=== PATIENT | female | born 1975 | race Caucasian/White ===

== ENCOUNTER 2022-02-23 13:21 | Emergency (ER) | payer OTHER, SELFPAY ==
[2022-02-23 13:27] VITALS: BP 106/70; PULSE 82; O2SAT 98
[2022-02-23 13:35] VITALS: BMI 22.2
--- NOTE | 2022-02-23 13:42 | ED_ITS ---
HPI - Psych General Chief Complaint: Psychiatric Symptoms Stated Complaint: SI Time Seen by Provider: 02/23/22 13:30 Source: patient and EMS Mode of arrival: EMS Limitations: no limitations History of Present Illness HPI Narrative: 47-year-old female with history of anxiety, depression, fibromyalgia, arthritis, hyperthyroidism presents with complaints of suicidal thoughts. Patient reports yesterday she woke with suicidal thoughts with plan to overdose on her medications. She was seen by [facility] and in the community and she was sent on a Section 12. Patient denies homicidal ideations, hallucinations. She has no physical complaints. She denies substance use Related Data Home Medications Medication Instructions Recorded Confirmed cholecalciferol (vitamin D3) 10 5 tab PO DAILY 02/23/22 02/23/22 mcg (400 unit) tablet (Vitamin D3) clonazepam 0.5 mg tablet 1 tab PO TID PRN Anxiety 02/23/22 02/23/22 levothyroxine 200 mcg tablet 1 tab PO DAILY 02/23/22 02/23/22 lithium carbonate 300 mg capsule 1 cap PO BID 02/23/22 02/23/22 melatonin 3 mg tablet 3 tab PO BEDTIME 02/23/22 02/23/22 mirtazapine 15 mg tablet 1 tab PO BEDTIME 02/23/22 02/23/22 olanzapine 20 mg tablet 1 tab PO BEDTIME 02/23/22 02/23/22 thiamine HCl (vitamin B1) 100 mg 1 tab PO DAILY 02/23/22 02/23/22 tablet tizanidine 4 mg tablet 1 tab PO Q8H PRN muscle spasm 02/23/22 02/23/22 trazodone 100 mg tablet 1 tab PO BEDTIME 02/23/22 02/23/22 Allergies Allergy/AdvReac Type Severity Reaction Status Date / Time Unable to Assess Allergy Verified 02/23/22 13:40 Review of Systems Review of Systems: Yes all other systems are reviewed and are negative Constitutional: Constitutional: Reports no additional constitutional complaints, Denies body ache(s), Denies chills, Denies fever(s), Denies h eadache(s) and Denies weakness Eyes: Eyes: Reports no additional eye complaints and Denies change in vision ENT: Reports system reviewed and no additional complaints, except as documented, Denies dizziness, Denies headache(s), Denies nasal congestion, Denies nasal discharge and Denies neck pain Cardiovascular: Cardiovascular: Reports no additional cardiovascular complaints, Denies chest pain, Denies leg edema and Denies dyspnea Respiratory: Respiratory: Reports no additional respiratory complaints, Denies cough and Denies dyspnea Gastrointestinal: Gastrointestinal: Reports no additional gastrointestinal complaints, Denies abdominal pain, Denies diarrhea, Denies nausea and Denies vomiting Genitourinary: Genitourinary: Reports no additional female genitourinary complaints and Denies urinary incontinence Musculoskeletal: Musculoskeletal: Reports no additional musculoskeletal complaints, Denies back pain, Denies arthralgias, Denies joint swelling, Denies neck pain, Denies numbness and Denies tingling Integumentary/Breasts: Skin/Breast: Reports system reviewed and no additional complaints, except as docu and Denies rash Neurologic: Reports system reviewed and no additional complaints, except as documented, Denies Abnormal speech present, Denies dizziness, Denies headache(s), Denies numbness, Denies tingling and Denies weakness Psychiatric: Psychiatric: Denies anxiety, Denies depression, Denies homicidal ideation and Reports suicidal ideation [facility] Past Medical History Attestation statement: The following information was validated with the patient. Source: old records reviewed and nursing notes reviewed Social History Social History Advance Directives: No Advance Directives Information Provided: No Physical Exam Vital Signs: Vital Signs: Last Vital Signs Temp 98.0 F 02/23/22 15:31 Pulse 83 02/23/22 15:31 Resp 14 02/23/22 15:31 BP 117/55 L 02/23/22 15:31 Pulse Ox 98 02/23/22 15:31 O2 Del Method 02/23/22 15:31 BMI result Body Mass Index 22.2 Const: General: cooperative, healthy appearing, comfortable and no acute distress Orientation/consciousness: patient oriented x3 Limitations: no limitations HEENT: Head: Yes normal to inspection Ears: hearing grossly normal bilaterally General nose exam: Normal external nose present Face and sinus: Yes normal facial exam Mouth: Normal oral and palatal mucosa present Throat: Yes posterior oropharynx normal Eyes: General: appearance normal, both eyes and all related structures Pupils: Equal, round and reactive pupils present Neck: Neck: Yes normal visual inspection Chest: Chest palpation & inspection: normal inspection of the chest Resp: Effort & Inspection: normal respiratory effort Auscultation: clear to auscultation bilaterally Cardio: Rate: regular rate Rhythm: regular rhythm Peripheral pulses: Peripheral pulses 2+ throughout GI: Inspection: Yes normal to inspection Palpation (GI): Soft to palpation and nontender Auscultation: normal bowel sounds Back/Spine/Pelvis: Thoracic/Lumbar Spine: thoracic and lumbar spine normal to inspection Skin: General skin exam: no rashes or lesions noted Neuro: General: patient oriented x3, no focal motor deficits and normal sensation to monofilament Cranial nerves: Yes CN's II-XII intact bilaterally and Yes Equal, round and reactive pupils present Cognition (Neuro): normal cognition Speech: No Abnormal speech present Gait exam (Neuro): Normal gait present Motor exam (neuro): 5/5 motor strength present throughout Extrem: General: Yes normal to inspection, Yes no pedal edema and Yes no calf tenderness Course Course Course Narrative: Labs reviewed and unremarkable. UA shows no acute finding. At this point patient is medically cleared to be seen by crisis Reevaluation(s) Reevaluation #1: 1600-Patient is inpatient bed search on Section 12. Reevaluation #2: 1700-patient placed in physician observation pending disposition. Medications were reconciled Reevaluation #3: 1800-Sign out to Tasne[facility] pending above MDM - Psych MDM Narrative Medical decision making narrative: 47-year-old female coming in with suicidal thoughts with plan to overdose on her pills on a Section 12. No concern for acute ingestion or trauma. No physical complaints. Will check labs, drug screen, COVID screen. Medical Records Attestation: I reviewed the patient's medical records. Lab Data Attestation: I reviewed the patient's lab results. Result diagrams: 02/23/22 14:14 02/23/22 14:14 Labs: Lab Results 02/23/22 02/23/22 02/23/22 Range/Units 14:14 14:14 14:14 WBC 8.1 (4.8-10.8) X10*3/uL RBC 4.03 L (4.20-5.50) X10*6/uL Hgb 10.3 L (12.0-16.0) g/dl Hct 33.2 L (37.0-47.0) % MCV 82.4 (80.0-98.0) fL MCH 25.6 L (27.0-33.0) pg MCHC 31.0 (31.0-35.0) g/dl RDW 15.6 (11.0-16.0) % Plt Count 429 H (160-400) X10*3/uL MPV 8.6 L (9.4-12.3) fL Immature Gran % (Auto) 0.2 (0.0-0.4) % Neut % (Auto) 61.6 (45-73) % Lymph % (Auto) 22.2 (20-40) % [place] % (Auto) 10.8 (2-11) % Eos % (Auto) 4.7 H (0-4) % Baso % (Auto) 0.5 (0-2) % Lymph # (Auto) 1.8 (1.2-4.9) X10*3/uL [place] # (Auto) 0.9 (0.1-1.2) X10*3/uL Eos # (Auto) 0.4 (0.0-0.4) X10*3/uL Baso # (Auto) 0.0 (0.0-0.2) X10*3/uL Abs Immat Gran (auto) 0.02 (0.00-0.03) X10*3/uL Absolute Neuts (auto) 5.0 (2.0-8.3) x10*3/uL Absolute Nucleated RBC 0.000 (0.0-0.012) X10*3/uL Nucleated RBC % (auto) 0.0 (0.0-0.2) /100WBC Sodium 136 (135-145) mmol/L Potassium 3.5 (3.3-5.1) mmol/L Chloride 108 (96-108) mmol/L Carbon Dioxide 21 L (22-29) mmol/L Anion Gap 11 L (12-20) BUN 9 (9-16) mg/dL Creatinine 0.72 (0.5-1.4) mg/dL Estim Creat Clear Calc 64.4 Estimated GFR > 60 Random Glucose 102 (60-115) mg/dL Calcium 9.4 (8.4-10.2) mg/dL Total Bilirubin 0.3 (0.0-1.0) mg/dL Direct Bilirubin 0.2 (0.0-0.5) mg/dL AST 10 (5-31) U/L ALT 6 (0-31) U/L Alkaline Phosphatase 63 (39-117) U/L Total Protein 6.6 (6.5-8.0) g/dL Albumin 4.0 (3.5-5.0) g/dL Salicylates < 5.0 L (15-30) mg/dL Urine Opiates Screen (Not Detect) Urine Fentanyl Screen (Not Detect) Acetaminophen < 1 (<30) mcg/mL Ur Barbiturates Screen (Not Detect) Ur Phencyclidine Scrn (Not Detect) Ur Amphetamines Screen (Not Detect) U Benzodiazepines Scrn (Not Detect) [place] 0.86 (0.60-1.20) mmol/L Urine Cocaine Screen (Not Detect) U Marijuana (THC) Screen (Not Detect) Ethyl Alcohol < 10 mg/dL COVID-19 (DANIEL) (Negative) COVID-19 Clin Com 02/23/22 02/23/22 Range/Units 14:15 14:16 WBC (4.8-10.8) X10*3/uL RBC (4.20-5.50) X10*6/uL Hgb (12.0-16.0) g/dl Hct (37.0-47.0) % MCV (80.0-98.0) fL MCH (27.0-33.0) pg MCHC (31.0-35.0) g/dl RDW (11.0-16.0) % Plt Count (160-400) X10*3/uL MPV (9.4-12.3) fL Immature Gran % (Auto) (0.0-0.4) % Neut % (Auto) (45-73) % Lymph % (Auto) (20-40) % [place] % (Auto) (2-11) % Eos % (Auto) (0-4) % Baso % (Auto) (0-2) % Lymph # (Auto) (1.2-4.9) X10*3/uL [place] # (Auto) (0.1-1.2) X10*3/uL Eos # (Auto) (0.0-0.4) X10*3/uL Baso # (Auto) (0.0-0.2) X10*3/uL Abs Immat Gran (auto) (0.00-0.03) X10*3/uL Absolute Neuts (auto) (2.0-8.3) x10*3/uL Absolute Nucleated RBC (0.0-0.012) X10*3/uL Nucleated RBC % (auto) (0.0-0.2) /100WBC Sodium (135-145) mmol/L Potassium (3.3-5.1) mmol/L Chloride (96-108) mmol/L Carbon Dioxide (22-29) mmol/L Anion Gap (12-20) BUN (9-16) mg/dL Creatinine (0.5-1.4) mg/dL Estim Creat Clear Calc Estimated GFR Random Glucose (60-115) mg/dL Calcium (8.4-10.2) mg/dL Total Bilirubin (0.0-1.0) mg/dL Direct Bilirubin (0.0-0.5) mg/dL AST (5-31) U/L ALT (0-31) U/L Alkaline Phosphatase (39-117) U/L Total Protein (6.5-8.0) g/dL Albumin (3.5-5.0) g/dL Salicylates (15-30) mg/dL Urine Opiates Screen Not Detected (Not Detect) Urine Fentanyl Screen Not Detected (Not Detect) Acetaminophen (<30) mcg/mL Ur Barbiturates Screen Not Detected (Not Detect) Ur Phencyclidine Scrn Not Detected (Not Detect) Ur Amphetamines Screen Not Detected (Not Detect) U Benzodiazepines Scrn Not Detected (Not Detect) [place] (0.60-1.20) mmol/L Urine Cocaine Screen Not Detected (Not Detect) U Marijuana (THC) Screen POSITIVE H (Not Detect) Ethyl Alcohol mg/dL COVID-19 (DANIEL) Negative (Negative) COVID-19 Clin Com See Note Discharge Plan Discharge Clinical Impression: Suicidal ideation Patient Disposition: Still a Patient Prescriptions: No Action tizanidine 4 mg tablet 1 tab PO Q8H PRN (Reason: muscle spasm) clonazepam 0.5 mg tablet 1 tab PO TID PRN (Reason: Anxiety) thiamine HCl (vitamin B1) 100 mg tablet 1 tab PO DAILY melatonin 3 mg tablet 3 tab PO BEDTIME trazodone 100 mg tablet 1 tab PO BEDTIME lithium carbonate 300 mg capsule 1 cap PO BID levothyroxine 200 mcg tablet 1 tab PO DAILY mirtazapine 15 mg tablet 1 tab PO BEDTIME cholecalciferol (vitamin D3) [Vitamin D3] 10 mcg (400 unit) tablet 5 tab PO DAILY olanzapine 20 mg tablet 1 tab PO BEDTIME
[2022-02-23 14:22] LABS: MANUAL DIFF FLAG NO
[2022-02-23 14:24] LABS: Basophils Percent Auto 0.5 % (0-2); Eosinophils Absolute Auto 0.4 X10*3/uL (0.0-0.4); Eosinophils Percent Auto 4.7 % (0-4); Hematocrit 33.2 % (37.0-47.0); Hemoglobin 10.3 g/dl (12.0-16.0); Imm Gran Abs Auto 0.02 X10*3/uL (0.00-0.03); Imm Gran Pct Auto 0.2 % (0.0-0.4); Lymphocytes Absolute Auto 1.8 X10*3/uL (1.2-4.9); Lymphocytes Percent Auto 22.2 % (20-40); Mean Corpuscular Hemoglobin 25.6 pg (27.0-33.0); Mean Corpuscular Volume 82.4 fL (80.0-98.0); Mean Platelet Volume 8.6 fL (9.4-12.3); Monocytes Absolute Auto 0.9 X10*3/uL (0.1-1.2); Monocytes Percent Auto 10.8 % (2-11); Neutrophils Percent Auto 61.6 % (45-73); Platelet Count 429 X10*3/uL (160-400); Red Blood Count 4.03 X10*6/uL (4.20-5.50); Red Cell Distribution Width 15.6 % (11.0-16.0); White Blood Count 8.1 X10*3/uL (4.8-10.8)
[2022-02-23 14:32] LABS: Lithium 0.86 mmol/L (0.60-1.20)
[2022-02-23 14:40] LABS: Amphetamine Screen Urine Not Detected (Not Detect); Barbiturates, Urine Not Detected (Not Detect); Benzodiazepines Screen Urine Not Detected (Not Detect); Cannabinoid Screen Urine POSITIVE (Not Detect); Cocaine Screen Urine Not Detected (Not Detect); Fentanyl, urine Not Detected (Not Detect); Opiate Screen Urine Not Detected (Not Detect); Phencyclidine Screen Urine Not Detected (Not Detect)
[2022-02-23 14:42] LABS: Acetaminophen LAB < 1 mcg/mL (<30); Alanine Aminotransferase 6 U/L (0-31); Alkaline Phosphatase 63 U/L (39-117); Anion Gap 11 (12-20); Aspartate Amino Transferase 10 U/L (5-31); Bilirubin Direct 0.2 mg/dL (0.0-0.5); Bilirubin Total 0.3 mg/dL (0.0-1.0); Blood Urea Nitrogen 9 mg/dL (9-16); Calcium 9.4 mg/dL (8.4-10.2); Carbon Dioxide 21 mmol/L (22-29); Chloride 108 mmol/L (96-108); Creatinine Clr Calc Pharmacy 64.4; Estimated Glomerular Filt Rate > 60; Ethanol < 10 mg/dL; Glucose Random 102 mg/dL (60-115); Potassium 3.5 mmol/L (3.3-5.1); Salicylate < 5.0 mg/dL (15-30); Sodium 136 mmol/L (135-145); Total Protein 6.6 g/dL (6.5-8.0)
[2022-02-23 14:49] LABS: COVID-19 Test Negative (Negative); IDNOW Serial# 16C4AD1C
--- NOTE | 2022-02-23 14:53 | PHA.MEDREC ---
Pharmacy Consult ? Medication Reconciliation Pharmacy has completed the medication reconciliation. Patient reported all medications. Patient reports only taking Clonazaepam this AM. Haylie Sepulveda, PharmD
[2022-02-23 15:31] VITALS: BP 117/55; PULSE 83; RESP 14; TEMP 36.7; O2SAT 98
--- NOTE | 2022-02-23 15:52 | MHC.CARE ---
Per ZAMZAM Bolden pt is an active bedsearch for inpt psychiatric admission
[2022-02-23] MEDS: clonazePAM 0.5 MG TABLET PO (16:34)
[2022-02-23] MEDS: Melatonin 3 MG TABLET 9 MG PO (20:52)
[2022-02-23] MEDS: Lithium Carbonate 300 MG CAPSULE PO (20:52)
[2022-02-23] MEDS: OLANZapine 10 MG TABLET 20 MG PO (20:52)
[2022-02-23] MEDS: Mirtazapine 15 MG TABLET PO (20:53)
[2022-02-23] MEDS: traZODone HCL 100 MG TABLET PO (20:53)
[2022-02-24] MEDS: clonazePAM 0.5 MG TABLET PO ×2 (02:18→14:00)
[2022-02-24 10:15] VITALS: BP 109/67; PULSE 80; RESP 16; O2SAT 96
[2022-02-24] MEDS: Lithium Carbonate 300 MG CAPSULE PO (11:50)
[2022-02-24] MEDS: Cholecalciferol (Vitamin D3) 25 MCG TABLET 50 MCG PO (11:50)
[2022-02-24] MEDS: Levothyroxine Sodium 200 MCG TABLET PO (11:50)
[2022-02-24] MEDS: Thiamine HCL 100 MG TABLET PO (11:51)
--- NOTE | 2022-02-24 13:58 | PC.NURSE ---
slept most of the morning, skin wpd, sitter at bedside, alert, speech clear, ate both breakfast and lunch
--- NOTE | 2022-02-24 14:52 | PC.NURSE ---
Pt seen this date for individual OT tx session. Pt presents with flat depressed mood and reports continued depression and anxiety. Pt provided with coloring pages and sensory items with good effect.
--- NOTE | 2022-02-24 14:56 | PC.NURSE ---
This RN received report from BETO Cortes. Pt is stable, sec 12, SI w/ plan. on 1:1 bedsearch. N to check in with pt tomorrow AM
--- NOTE | 2022-02-24 19:03 | PC.NURSE ---
Pt sec 12, but has been appropriate and calm. Pt has 9pm meds. Report to BETO Costello at this time. BHN to re-eval pt tomorrow AM pending BS vs Respit
--- NOTE | 2022-02-24 20:49 | PC.NURSE ---
I assumed care of this patient at 1900. At that time the pt was resting in the [facility], 1:1 observation continuing. Discharged at this time into care of boyfriend en route to respite.
== END 2022-02-24 21:09 | disposition home or self-care (01) ==
PROVIDERS: Nurse Practitioner Family; Emergency Provider Emergency Medicine; PCP Internal Medicine
DX: F33.1 Major depressive disorder, recurrent, moderate (principal); R45.851 Suicidal ideations; M79.10 Myalgia, unspecified site; Z20.822 Contact with and (suspected) exposure to COVID-19; Z79.899 Other long term (current) drug therapy
CPT/HCPCS: 80048; 80076; 80143; 80178; 80179; 80307; 82077; 85025; 87635; 99283; 99284

== ENCOUNTER 2023-03-22 10:29 | Inpatient (IN) | payer OTHER, SELFPAY ==
--- NOTE | 2023-03-22 | ECG_ITS ---
Test Reason : REPEAT DUE TO HYPOKALEMIA Blood Pressure : / mmHG Vent. Rate : 060 BPM Atrial Rate : 060 BPM P-R Int : 204 ms QRS Dur : 092 ms QT Int : 456 ms P-R-T Axes : 022 065 035 degrees QTc Int : 456 ms Normal sinus rhythm Nonspecific T wave abnormality Abnormal ECG When compared with ECG of 22-MAR-2023 19:44, Nonspecific T wave abnormality has replaced inverted T waves in Anterior leads QT has shortened Referred By: Rochelle Dick Electronically Signed By:STEVE HENDRICKS
--- NOTE | 2023-03-22 11:05 | ED.PSYCH ---
HPI - Psych General Chief Complaint: Psychiatric Symptoms Stated Complaint: crisis Time Seen by Provider: 03/22/23 10:49 Source: patient, family and old records reviewed Mode of arrival: ambulatory Limitations: no limitations History of Present Illness HPI Narrative: 48 yo female with hx of anxiety, depression, mood disorder here with a week of SI but no plan and admits to not taking her medications correctly but then notes she ran out of her trazodone on Thursday or had refills but has not gotten her meds filled - she cannot really tell me why. She notes a red rash on under her breasts. She has no SI now, denies AH/VH. States she is very anxious and is not sleeping MD complaint: suicidal ideation and feels depressed Onset (ago): day(s) (4) Duration: getting worse History of same: Yes Relieving factors: none Exacerbating factors: other Context: not taking psychiatric medications Associated psychiatric symptoms: depression, suicidal ideation and racing thoughts Associated symptoms: other (rash under breasts) Treatments prior to arrival: none If self harm: admits thoughts of self harm Related Data Home Medications Medication Instructions Recorded Confirmed clonazepam 0.5 mg tablet 1 tab PO TID PRN Anxiety 02/23/22 03/22/23 levothyroxine 200 mcg tablet 1 tab PO DAILY 02/23/22 03/22/23 lithium carbonate 300 mg capsule 1 cap PO BID 02/23/22 03/22/23 melatonin 3 mg tablet 3 tab PO BEDTIME 02/23/22 03/22/23 thiamine HCl (vitamin B1) 100 mg 1 tab PO DAILY 02/23/22 03/22/23 tablet trazodone 100 mg tablet 150 tab PO BEDTIME 02/23/22 03/22/23 levothyroxine 25 mcg tablet 25 mcg PO DAILY 03/22/23 03/22/23 lurasidone 20 mg tablet 20 mg PO QAM 03/22/23 03/22/23 Allergies Allergy/AdvReac Type Severity Reaction Status Date / Time Unable to Assess Allergy Verified 02/23/22 13:40 Review of Systems Review of Systems: Constitutional : No Fever, No Chills Cardiovascular : No Chest Pain, No SOB Respiratory : No Cough, No Sputum, No Dyspnea Gastrointestinal : No Nausea, No Vomiting, No Diarrhea, No Hematochezia, No Melena Genitourinary : No Dysuria, No Urinary Frequency, No Hematuria Musculoskeletal : No Myalgias Skin : No Skin Lesions, No rash Neuro : No Weakness, No Numbness, No Paresthesias, No Dizziness, No Headache Psych : positive Anxiety, positive Depression, no SI no HI All other systems reviewed and are negative [facility] Past Medical History Attestation statement: The following information was validated with the patient. Medical History Anxiety Depression Hypothyroidism Social History Social History (Updated 03/22/23 @ 11:13 by Rochelle Dick DO) Patient Tobacco Use Status: Never used Tobacco Use of substances other than those prescribed or required for medical reasons: No Advance Directives: No Advance Directives Information Provided: No Healthcare Proxy: No Guardian: No Physical Exam Vital Signs: Vital Signs: Last Vital Signs Temp 97.3 F 03/22/23 11:06 Pulse 85 03/22/23 13:30 Resp 18 03/22/23 13:30 BP 112/87 03/22/23 13:30 Pulse Ox 98 03/22/23 13:30 O2 Del Method Room Air 03/22/23 13:30 BMI result Body Mass Index 28.3 Appearance: Alert. Oriented X3. Mild acute distress. Crying, anxious Eyes: Pupils equal, round and reactive to light. ENT: Pharynx normal. Neck: Normal inspection. Neck supple. CVS: Normal heart rate and rhythm. Pulses normal. Chest : with aYra RN present - beefy red rash noted under breasts consistent with yeast no signs of cellulitis Respiratory: No respiratory distress. Breath sounds normal. Abdomen: Soft and nontender. Skin: Skin warm and dry. Normal skin color. Normal skin turgor. Extremities: No lower extremity edema. Neuro: Oriented X 3. No motor deficit. No sensory deficit. CN2-12 intact Course Course Course Narrative: K is low will give oral and IV - CBC shows hemoconcentration IVF ordered once that is done will be medically cleared. Reevaluation(s) Reevaluation #1: TSH very high - not taking her thyroid medications but no bradycardia and no edema or other signs of myxedema coma Reevaluation #2: no known CAD - T4 is not terrible will start her at 112mcg daily and can be reassessed. Reevaluation #3: UA contaminated Additional Reevaluation(s): Physician observation started at 320pm Patient placed in physician observation because the patient needed more time for inpatient bed search and repletion of K. At the time observation was started the patient's vitals were stable, patient is alert and oriented but slightly anxious, Neuro: nonfocal, CV RRR, Lungs clear Medications Administered Discontinued Medications Generic Name Dose Route Start Last Admin Trade Name Carol PRN Reason Stop Dose Admin Clonazepam 1 mg 03/22/23 11:02 03/22/23 11:16 Clonazepam 1 Mg Tablet PO 03/22/23 11:03 1 mg ONCE ONE Administration Potassium Chloride 10 meq in 100 mls @ 100 mls/hr 03/22/23 12:30 03/22/23 14:55 Potassium Chloride/H20 IV 03/22/23 14:29 100 mls/hr Q1H CHALO Administration Sodium Chloride 1,000 mls @ 999 mls/hr 03/22/23 12:30 03/22/23 13:44 Ns IV 03/22/23 13:30 999 mls/hr .Q1H1M CHALO Administration Levothyroxine Sodium 112 mcg 03/22/23 13:02 03/22/23 13:43 Levothyroxine Sodium 112 Mcg Tablet PO 03/22/23 13:03 112 mcg ONCE ONE Administration Nystatin 1 appl 03/22/23 11:10 03/22/23 13:44 Nystatin Powder 15 Gm Bottle TOPICAL 03/22/23 11:11 Not Given ONCE ONE Protocol Olanzapine 5 mg 03/22/23 11:04 03/22/23 11:16 Olanzapine 5 Mg Tablet PO 03/22/23 11:05 5 mg ONCE ONE Administration Potassium Chloride 40 meq 03/22/23 12:07 03/22/23 13:42 Potassium Chloride Packet 20 Meq Packet PO 03/22/23 12:08 40 meq ONCE ONE Administration Medical Decision Making Medical Decision Making MDM Narrative: 48 yo female with hx of anxiety, depression, mood disorder who has not been on her medications and not taking them right since Thursday/ who presents with insomnia, thoughts of SI, anxiety and not feeling well. She states she is very anxious and asking for her medications. She notes she hasn't been taking her medications but also she states she couldn't fill them though she has refills - it was a little hard to follow. She has no SI now but states she is not safe. She denies AH/VH. She will need labs and PO medications. The patient also c/o red rash under breasts - I could not examine her in common area will apply nystatin and ask for private area to examine her. Differential Diagnosis Differential Diagnoses: The differential diagnosis associated with the presentation includes non compliance, anxiety, med withdrawal, SI Admission/Observation Consideration of admission/observation: Escalation of care including admission/observation considered Lab Data MDM Lab Attestation statement: I reviewed the patient's lab results. TSH up would need 110 of levothyroxine once T4 back no clinical signs of myxedema coma 03/22/23 11:34 03/22/23 11:34 Labs: Lab Results 03/22/23 03/22/23 03/22/23 Range/Units 11:13 11:34 11:34 WBC 15.2 H (4.8-10.8) X10*3/uL RBC 5.49 D (4.20-5.50) X10*6/uL Hgb 15.1 D (12.0-16.0) g/dl Hct 45.3 D (37.0-47.0) % MCV 82.5 (80.0-98.0) fL MCH 27.5 (27.0-33.0) pg MCHC 33.3 (31.0-35.0) g/dl RDW 17.0 H (11.0-16.0) % Plt Count 463 H (160-400) X10*3/uL MPV 8.5 L (9.4-12.3) fL Immature Gran % (Auto) 0.3 (0.0-0.4) % Neut % (Auto) 70.1 (45-73) % Lymph % (Auto) 19.9 L (20-40) % Eddy % (Auto) 9.0 (2-11) % Eos % (Auto) 0.5 (0-4) % Baso % (Auto) 0.2 (0-2) % Lymph # (Auto) 3.0 (1.2-4.9) X10*3/uL Eddy # (Auto) 1.4 H (0.1-1.2) X10*3/uL Eos # (Auto) 0.1 (0.0-0.4) X10*3/uL Baso # (Auto) 0.0 (0.0-0.2) X10*3/uL Abs Immat Gran (auto) 0.04 H (0.00-0.03) X10*3/uL Absolute Neuts (auto) 10.7 H (2.0-8.3) x10*3/uL Absolute Nucleated RBC 0.000 (0.0-0.012) X10*3/uL Nucleated RBC % (auto) 0.0 (0.0-0.2) /100WBC Sodium 135 (135-145) mmol/L Potassium 2.8 L (3.3-5.1) mmol/L Chloride 100 (96-108) mmol/L Carbon Dioxide 21 L (22-29) mmol/L Anion Gap 17 (12-20) BUN 8 L (9-16) mg/dL Creatinine 0.97 (0.5-1.4) mg/dL Estim Creat Clear Calc 66.2 Estimated GFR > 60 Random Glucose 128 H (60-115) mg/dL Calcium 10.7 H D (8.4-10.2) mg/dL Magnesium 2.2 (1.6-2.6) mg/dL Total Bilirubin 0.9 (0.0-1.0) mg/dL Direct Bilirubin 0.3 (0.0-0.5) mg/dL AST 58 H (5-31) U/L ALT 28 (0-31) U/L Alkaline Phosphatase 113 (39-117) U/L Total Protein 8.5 H (6.5-8.0) g/dL Albumin 5.2 H (3.5-5.0) g/dL TSH (0.32-4.0) uIU/mL Free T4 (0.71-1.85) ng/dL Urine Color Urine Appearance Urine pH (5.0-9.0) Ur Specific [place] (1.005-1.025) Urine Protein (Neg-Trace) mg/dL Urine Glucose (UA) (Negative) mg/dL Urine Ketones (Negative) mg/dL Urine Blood (Negative) Urine Nitrite (Negative) Ur Leukocyte Esterase (Negative) Urine RBC (0-2) /HPF Urine WBC (0-5) /HPF Ur Squamous Epith Cells (0-2) /HPF Urine Bacteria (None Seen) Hyaline Casts (0-2) /LPF Salicylates (15-30) mg/dL Urine Opiates Screen Not Detected (Not Detect) Acetaminophen (<30) mcg/mL Ur Barbiturates Screen Not Detected (Not Detect) Ur Phencyclidine Scrn Not Detected (Not Detect) Ur Amphetamines Screen Not Detected (Not Detect) U Benzodiazepines Scrn Not Detected (Not Detect) Storden (0.60-1.20) mmol/L Urine Cocaine Screen Not Detected (Not Detect) U Marijuana (THC) Screen POSITIVE H (Not Detect) Ethyl Alcohol < 10 mg/dL 03/22/23 03/22/23 03/22/23 Range/Units 11:34 11:34 11:34 WBC (4.8-10.8) X10*3/uL RBC (4.20-5.50) X10*6/uL Hgb (12.0-16.0) g/dl Hct (37.0-47.0) % MCV (80.0-98.0) fL MCH (27.0-33.0) pg MCHC (31.0-35.0) g/dl RDW (11.0-16.0) % Plt Count (160-400) X10*3/uL MPV (9.4-12.3) fL Immature Gran % (Auto) (0.0-0.4) % Neut % (Auto) (45-73) % Lymph % (Auto) (20-40) % Eddy % (Auto) (2-11) % Eos % (Auto) (0-4) % Baso % (Auto) (0-2) % Lymph # (Auto) (1.2-4.9) X10*3/uL Eddy # (Auto) (0.1-1.2) X10*3/uL Eos # (Auto) (0.0-0.4) X10*3/uL Baso # (Auto) (0.0-0.2) X10*3/uL Abs Immat Gran (auto) (0.00-0.03) X10*3/uL Absolute Neuts (auto) (2.0-8.3) x10*3/uL Absolute Nucleated RBC (0.0-0.012) X10*3/uL Nucleated RBC % (auto) (0.0-0.2) /100WBC Sodium (135-145) mmol/L Potassium (3.3-5.1) mmol/L Chloride (96-108) mmol/L Carbon Dioxide (22-29) mmol/L Anion Gap (12-20) BUN (9-16) mg/dL Creatinine (0.5-1.4) mg/dL Estim Creat Clear Calc Estimated GFR Random Glucose (60-115) mg/dL Calcium (8.4-10.2) mg/dL Magnesium (1.6-2.6) mg/dL Total Bilirubin (0.0-1.0) mg/dL Direct Bilirubin (0.0-0.5) mg/dL AST (5-31) U/L ALT (0-31) U/L Alkaline Phosphatase (39-117) U/L Total Protein (6.5-8.0) g/dL Albumin (3.5-5.0) g/dL TSH 82.23 H (0.32-4.0) uIU/mL Free T4 0.47 L (0.71-1.85) ng/dL Urine Color Urine Appearance Urine pH (5.0-9.0) Ur Specific [place] (1.005-1.025) Urine Protein (Neg-Trace) mg/dL Urine Glucose (UA) (Negative) mg/dL Urine Ketones (Negative) mg/dL Urine Blood (Negative) Urine Nitrite (Negative) Ur Leukocyte Esterase (Negative) Urine RBC (0-2) /HPF Urine WBC (0-5) /HPF Ur Squamous Epith Cells (0-2) /HPF Urine Bacteria (None Seen) Hyaline Casts (0-2) /LPF Salicylates < 5.0 L (15-30) mg/dL Urine Opiates Screen (Not Detect) Acetaminophen < 17 (<30) mcg/mL Ur Barbiturates Screen (Not Detect) Ur Phencyclidine Scrn (Not Detect) Ur Amphetamines Screen (Not Detect) U Benzodiazepines Scrn (Not Detect) Storden < 0.10 L (0.60-1.20) mmol/L Urine Cocaine Screen (Not Detect) U Marijuana (THC) Screen (Not Detect) Ethyl Alcohol mg/dL 03/22/23 Range/Units 11:50 WBC (4.8-10.8) X10*3/uL RBC (4.20-5.50) X10*6/uL Hgb (12.0-16.0) g/dl Hct (37.0-47.0) % MCV (80.0-98.0) fL MCH (27.0-33.0) pg MCHC (31.0-35.0) g/dl RDW (11.0-16.0) % Plt Count (160-400) X10*3/uL MPV (9.4-12.3) fL Immature Gran % (Auto) (0.0-0.4) % Neut % (Auto) (45-73) % Lymph % (Auto) (20-40) % Eddy % (Auto) (2-11) % Eos % (Auto) (0-4) % Baso % (Auto) (0-2) % Lymph # (Auto) (1.2-4.9) X10*3/uL Eddy # (Auto) (0.1-1.2) X10*3/uL Eos # (Auto) (0.0-0.4) X10*3/uL Baso # (Auto) (0.0-0.2) X10*3/uL Abs Immat Gran (auto) (0.00-0.03) X10*3/uL Absolute Neuts (auto) (2.0-8.3) x10*3/uL Absolute Nucleated RBC (0.0-0.012) X10*3/uL Nucleated RBC % (auto) (0.0-0.2) /100WBC Sodium (135-145) mmol/L Potassium (3.3-5.1) mmol/L Chloride (96-108) mmol/L Carbon Dioxide (22-29) mmol/L Anion Gap (12-20) BUN (9-16) mg/dL Creatinine (0.5-1.4) mg/dL Estim Creat Clear Calc Estimated GFR Random Glucose (60-115) mg/dL Calcium (8.4-10.2) mg/dL Magnesium (1.6-2.6) mg/dL Total Bilirubin (0.0-1.0) mg/dL Direct Bilirubin (0.0-0.5) mg/dL AST (5-31) U/L ALT (0-31) U/L Alkaline Phosphatase (39-117) U/L Total Protein (6.5-8.0) g/dL Albumin (3.5-5.0) g/dL TSH (0.32-4.0) uIU/mL Free T4 (0.71-1.85) ng/dL Urine Color Yellow Urine Appearance Hazy Urine pH 6.5 (5.0-9.0) Ur Specific [place] 1.010 (1.005-1.025) Urine Protein 100 (2+) H (Neg-Trace) mg/dL Urine Glucose (UA) Negative (Negative) mg/dL Urine Ketones 15 (Negative) mg/dL Urine Blood Moderate (2+) H (Negative) Urine Nitrite Negative (Negative) Ur Leukocyte Esterase Small (1+) H (Negative) Urine RBC 0-2 (0-2) /HPF Urine WBC 11-20 H (0-5) /HPF Ur Squamous Epith Cells 11-20 (0-2) /HPF Urine Bacteria 2+ (None Seen) Hyaline Casts 3-5 (0-2) /LPF Salicylates (15-30) mg/dL Urine Opiates Screen (Not Detect) Acetaminophen (<30) mcg/mL Ur Barbiturates Screen (Not Detect) Ur Phencyclidine Scrn (Not Detect) Ur Amphetamines Screen (Not Detect) U Benzodiazepines Scrn (Not Detect) St[place] (0.60-1.20) mmol/L Urine Cocaine Screen (Not Detect) U Marijuana (THC) Screen (Not Detect) Ethyl Alcohol mg/dL Independent Interpretation I performed an independent interpretation of an: EKG Interpretation: Rate: 80 Rhythm: NSR [place]: normal Normal P waves. Normal LACHELLE. Normal QRS complex. ST T wave : no MERI, nonspecific ST T wave changes consistent with low K qTC: prolonged 465 prior studies: no acute ischemia The study has been interpreted contemporaneously by me. . Independent Historian Clinical information obtained from an independent historian. History obtained from or confirmed by: Friend External Record Review External record reviewed: Inpatient record Procedures EJ/Peripheral Line Arm L: Time Out Performed: Yes Skin Cleansed in Sterile Fashion: Yes Size (gauge): 20 IV Secured and Dressing Applied: Yes Patient Tolerated Procedure: well and no complications Critical Care Time Critical Care Time Critical Care Time: Yes Total Critical Care Time: 35 Attestation: IV potassium, IVF, reassessments. I attest to this time spent taking care of the patient Discharge Plan Discharge Clinical Impression: Yeast dermatitis, Acute hypokalemia, Suicidal ideation, Elevated TSH Patient Disposition: Still a Patient Prescriptions: No Action clonazepam 0.5 mg tablet 1 tab PO TID PRN (Reason: Anxiety) thiamine HCl (vitamin B1) 100 mg tablet 1 tab PO DAILY melatonin 3 mg tablet 3 tab PO BEDTIME trazodone 100 mg tablet 150 tab PO BEDTIME lithium carbonate 300 mg capsule 1 cap PO BID levothyroxine 200 mcg tablet 1 tab PO DAILY levothyroxine 25 mcg tablet 25 mcg PO DAILY lurasidone 20 mg tablet 20 mg PO QAM
[2023-03-22 11:06] VITALS: BP 130/91; PULSE 83; RESP 18; TEMP 36.3; O2SAT 98; BMI 28.3
[2023-03-22] MEDS: OLANZapine 5 MG TABLET PO ×2 (11:16→20:53)
[2023-03-22] MEDS: clonazePAM 1 MG TABLET PO (11:16)
[2023-03-22 11:38] LABS: Amphetamine Screen Urine Not Detected (Not Detect); Barbiturates, Urine Not Detected (Not Detect); Benzodiazepines Screen Urine Not Detected (Not Detect); Cannabinoid Screen Urine POSITIVE (Not Detect); Cocaine Screen Urine Not Detected (Not Detect); Opiate Screen Urine Not Detected (Not Detect); Phencyclidine Screen Urine Not Detected (Not Detect)
[2023-03-22 11:41] LABS: MANUAL DIFF FLAG NO
[2023-03-22 11:42] LABS: Basophils Percent Auto 0.2 % (0-2); Eosinophils Absolute Auto 0.1 X10*3/uL (0.0-0.4); Eosinophils Percent Auto 0.5 % (0-4); Hematocrit 45.3 % (37.0-47.0); Hemoglobin 15.1 g/dl (12.0-16.0); Imm Gran Abs Auto 0.04 X10*3/uL (0.00-0.03); Imm Gran Pct Auto 0.3 % (0.0-0.4); Lymphocytes Percent Auto 19.9 % (20-40); Mean Corpuscular HGB Conc 33.3 g/dl (31.0-35.0); Mean Corpuscular Hemoglobin 27.5 pg (27.0-33.0); Mean Corpuscular Volume 82.5 fL (80.0-98.0); Mean Platelet Volume 8.5 fL (9.4-12.3); Monocytes Absolute Auto 1.4 X10*3/uL (0.1-1.2); Neutrophils Absolute Auto 10.7 x10*3/uL (2.0-8.3); Neutrophils Percent Auto 70.1 % (45-73); Platelet Count 463 X10*3/uL (160-400); Red Blood Count 5.49 X10*6/uL (4.20-5.50); White Blood Count 15.2 X10*3/uL (4.8-10.8)
[2023-03-22 11:55] LABS: Lithium < 0.10 mmol/L (0.60-1.20)
[2023-03-22 12:03] LABS: Acetaminophen LAB < 17 mcg/mL (<30); Alanine Aminotransferase 28 U/L (0-31); Albumin Level 5.2 g/dL (3.5-5.0); Alkaline Phosphatase 113 U/L (39-117); Anion Gap 17 (12-20); Aspartate Amino Transferase 58 U/L (5-31); Bilirubin Direct 0.3 mg/dL (0.0-0.5); Bilirubin Total 0.9 mg/dL (0.0-1.0); Blood Urea Nitrogen 8 mg/dL (9-16); Calcium 10.7 mg/dL (8.4-10.2); Carbon Dioxide 21 mmol/L (22-29); Chloride 100 mmol/L (96-108); Creatinine Clr Calc Pharmacy 66.2; Estimated Glomerular Filt Rate > 60; Ethanol < 10 mg/dL; Glucose Random 128 mg/dL (60-115); Magnesium 2.2 mg/dL (1.6-2.6); Potassium 2.8 mmol/L (3.3-5.1); Salicylate < 5.0 mg/dL (15-30); Sodium 135 mmol/L (135-145); Total Protein 8.5 g/dL (6.5-8.0)
--- NOTE | 2023-03-22 12:17 | ECG_ITS ---
Test Reason : hypokalemia Blood Pressure : / mmHG Vent. Rate : 080 BPM Atrial Rate : 080 BPM P-R Int : 192 ms QRS Dur : 098 ms QT Int : 404 ms P-R-T Axes : 045 077 -70 degrees QTc Int : 465 ms Normal sinus rhythm ST & T wave abnormality, consider inferolateral ischemia Prolonged QT Abnormal ECG No previous ECGs available Referred By: Rochelle Dick Electronically Signed By:STEVE HENDRICKS
[2023-03-22 12:22] LABS: TSH reflex Free T4 82.23 uIU/mL (0.32-4.0)
[2023-03-22 12:59] LABS: Free T4 (Free Thyroxine) 0.47 ng/dL (0.71-1.85)
[2023-03-22 13:30] VITALS: BP 112/87; PULSE 85; RESP 18; O2SAT 98
[2023-03-22] MEDS: Potassium Chloride Packet 20 MEQ PACKET 40 MEQ PO (13:42)
[2023-03-22] MEDS: Potassium Chloride/H20 10 MEQ/100 ML PIGGYBACK 100 MEQ IV ×2 (13:42→14:55)
[2023-03-22] MEDS: Levothyroxine Sodium 112 MCG TABLET PO (13:43)
[2023-03-22] MEDS: 0.9 % Sodium Chloride 1,000 ML 999 ML IV (13:44)
[2023-03-22 14:13] LABS: Appearance Urine Hazy; Color Urine Yellow; Glucose Urine UA Negative (Negative); Leukocyte Esterase Urine Small (1+) (Negative); Nitrite Urine Negative (Negative); PH 6.5 (5.0-9.0); UMIC TRIGGER UACC YES; Urine Blood Moderate (2+) (Negative); Urine Ketones 15 mg/dL (Negative); Urine Protein 100 (2+) mg/dL (Neg-Trace)
[2023-03-22 14:30] LABS: Bacteria Urine 2+ (None Seen); RBC Urine 0-2 /HPF (0-2); UACC Culture Trigger YES
--- NOTE | 2023-03-22 15:24 | PC.NURSE ---
patient resting in bed, family at bedside. patient has IV in the L foream placed via ultrasound. patient has been calm and cooperative.
[2023-03-22 17:37] LABS: COVID-19 Test Negative (Negative); IDNOW Serial# 08D9AD1C
--- NOTE | 2023-03-22 19:17 | ECG_ITS ---
Test Reason : HYPOKALEMIA Blood Pressure : / mmHG Vent. Rate : 077 BPM Atrial Rate : 077 BPM P-R Int : 198 ms QRS Dur : 100 ms QT Int : 530 ms P-R-T Axes : 080 083 073 degrees QTc Int : 599 ms Normal sinus rhythm ST & T wave abnormality, consider anterior ischemia Abnormal ECG When compared with ECG of 22-MAR-2023 12:27, T wave inversion less evident in Inferior leads Inverted T waves have replaced nonspecific T wave abnormality in Anterior leads QT has lengthened Referred By: Oscar Limon Electronically Signed By:STEVE HENDRICKS
[2023-03-22 19:50] LABS: Anion Gap 15 (12-20); Blood Urea Nitrogen 8 mg/dL (9-16); Calcium 9.8 mg/dL (8.4-10.2); Carbon Dioxide 22 mmol/L (22-29); Chloride 108 mmol/L (96-108); Creatinine Clr Calc Pharmacy 72.2; Estimated Glomerular Filt Rate > 60; Glucose Random 120 mg/dL (60-115); Potassium 2.7 mmol/L (3.3-5.1); Sodium 142 mmol/L (135-145)
--- NOTE | 2023-03-22 20:21 | PC.NURSE ---
RN received a call from [facility] nurse regarding pt's repeat Potassium level which came back 0.1 less than the original despite having Potassium replaced (20meq IV and 40meq PO). RN to discuss these findings with MD Moy as the floor appears to be ready to receive her but is unsure of she requires additional Potassium at this time. Pt has been assisted to bathroom to remove old EMS and EKG stickers from chest/breast area. She was also provided with supplies to clear her underbreast area as it was reported (not yet visualized by RN) that she has what appears to be a bad yeast like rash/area to her bilateral underbreast. RN to consult pharmacy regarding Nystatin powder that was ordered earlier but not provided.
[2023-03-22] MEDS: Melatonin 3 MG TABLET 9 MG PO (20:53)
[2023-03-22] MEDS: clonazePAM 0.5 MG TABLET PO (20:53)
[2023-03-22] MEDS: Potassium Bicarbonate/Cit AC 25 MEQ TABLET.EFF 50 MEQ PO (20:55)
--- NOTE | 2023-03-22 21:14 | PC.NURSE ---
Pt medicated per MD order with 50meq PO potassium d/t repeat Potassium coming in at 2.7. RN placed order for repeat Chemistry (per MD order) within 1 hour of completion of medication consumption. Pt medicated wtih all 2100 medications per order, inquired about Trazadone 300mg that she takes and RN able to confirm she has a 7 day supply of this prescribed 03/19. RN to speak with MD Moy regarding getting this updated/added to her med rec/list.
[2023-03-22] MEDS: Lithium Carbonate 300 MG CAPSULE PO (21:21)
[2023-03-22 22:35] VITALS: BP 146/77; PULSE 77; RESP 20; TEMP 37; O2SAT 97
[2023-03-22] MEDS: Nystatin Powder 15 GM BOTTLE 1 APPL TOPICAL (23:03)
--- NOTE | 2023-03-22 23:20 | PC.NURSE ---
Report received from BETO Bridges. Pt up, back and forth to bathroom, urinating. This RN spoke with patient about UTI symptoms, pt denies burning or pain with urination. This RN educated patient signs and symptoms of UTI and encouraged patient to let this RN know if she is experiencing those symptoms. Pt now resting comfortably on bed, offers no concerns or questions at this time. Continue plan of care for waiting for potassium to come back and possible admit to [facility]
[2023-03-22 23:35] LABS: Alanine Aminotransferase 24 U/L (0-31); Albumin Level 4.3 g/dL (3.5-5.0); Alkaline Phosphatase 92 U/L (39-117); Anion Gap 13 (12-20); Aspartate Amino Transferase 42 U/L (5-31); Bilirubin Total 0.7 mg/dL (0.0-1.0); Blood Urea Nitrogen 9 mg/dL (9-16); Calcium 9.8 mg/dL (8.4-10.2); Carbon Dioxide 25 mmol/L (22-29); Chloride 105 mmol/L (96-108); Creatinine Clr Calc Pharmacy 67.6; Estimated Glomerular Filt Rate > 60; Glucose Random 108 mg/dL (60-115); Potassium 3.5 mmol/L (3.3-5.1); Sodium 139 mmol/L (135-145); Total Protein 7.1 g/dL (6.5-8.0)
--- NOTE | 2023-03-22 23:59 | PC.NURSE ---
Pt potassium resulted back, this RN called [facility] to see if they would still be taking her this evening. Per [facility] staff, inpatient physician requesting repeat EKG. EKG order placed and is being completed at this time.
--- NOTE | 2023-03-23 | ECG_ITS ---
Test Reason : Qtc Blood Pressure : / mmHG Vent. Rate : 070 BPM Atrial Rate : 070 BPM P-R Int : 202 ms QRS Dur : 098 ms QT Int : 422 ms P-R-T Axes : 065 081 039 degrees QTc Int : 455 ms Normal sinus rhythm ST & T wave abnormality, consider inferior ischemia Abnormal ECG When compared with ECG of 23-MAR-2023 00:26, Nonspecific T wave abnormality now evident in Lateral leads Referred By: Segun Chairez Electronically Signed By:STEVE HENDRICKS
[2023-03-23] MEDS: traZODone HCL 100 MG TABLET 300 MG PO ×2 (00:31→20:07)
--- NOTE | 2023-03-23 00:38 | PC.NURSE ---
nurse to nurse given to BETO Kingsley on [facility]. Pt will be going up shortly. Pt aware of plan and remains calm and cooperative, verbalizes agreement with plan
[2023-03-23 04:11] VITALS: BP 122/67; PULSE 86; RESP 18; TEMP 36.7; O2SAT 92
[2023-03-23] MEDS: hydrOXYzine HCL 25 MG TABLET PO (04:38)
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
[2023-03-23] MEDS: Lurasidone HCl 20 MG TABLET PO (09:17)
[2023-03-23] MEDS: Lithium Carbonate 300 MG CAPSULE PO (09:17)
[2023-03-23] MEDS: Levothyroxine Sodium 112 MCG TABLET PO (09:17)
[2023-03-23] MEDS: clonazePAM 0.5 MG TABLET PO ×3 (09:29→20:13)
[2023-03-23 09:35] VITALS: BP 120/77; PULSE 72; RESP 18; TEMP 36.6
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
--- NOTE | 2023-03-23 14:16 | P.CONHOSP_ITS ---
History of Present Illness Data of Consult Service Date: 03/23/23 Requesting physician: Segun Chairez Primary Care Provider: Unknown Physician HPI Reason for consult: hypothyroidism 48-year-old female with history of mood disorder and hypothyroidism admitted to Psychiatry consult placed hospitalist service for management of hypothyroidism. On admission, TSH 82.23, free T4 0.47. Patient is prescribed 225 mcg daily outpatient however today she tells me that she has not taken this medication in over a month. She states she has never been compliant with the medication. She is symptomatic with dry skin, slight hair loss, weight gain, and depression though she states this more situational. She denies any constipation. Review of Systems Review of Systems: Yes all other systems are reviewed and are negative [facility] Medical History (Updated 03/23/23 @ 14:27 by FELICITA Calix) Anxiety Depression Hypothyroidism Social History Household Members: Significant Other and Children Housing: Unknown / Unable to assess Do you presently have visiting nurse or other home services: No Patient Tobacco Use Status: Never used Tobacco Use of substances other than those prescribed or required for medical reasons: Yes Substance Use Type: Marijuana Substance Use Frequency: Daily Last Used Substance: Hours (ago) Currently Displaying Signs/Symptoms of Drug Intoxication Withdrawal: No Any prior treatment program specific to substance use: No Have you been hit, kicked, punched, or otherwise hurt by someone within the past year? If so, by whom?: No Do you feel safe in your current relationship?: Yes Is there a partner from a previous relationship who is making you feel unsafe now?: No Are you made to feel afraid or neglected: No Spiritual Healthcare Practices: none Yarsani Healthcare Practices: none Cultural Healthcare Practices: none Advance Directives: No Advance Directives Information Provided: No Healthcare Proxy: No Guardian: No Do you have thoughts of harming others: None Do you have a plan to hurt others: No Plan Recently lost weight without trying: No Nutrition Risks: No Nutritional Risk Patient : No : No Poor oral hygiene: No Meds Allergies Allergy/AdvReac Type Severity Reaction Status Date / Time methotrexate Allergy Rash Verified 03/22/23 20:54 warfarin [From Coumadin] Allergy Rash Verified 03/22/23 20:54 Active Medications: Current Medications Acetaminophen (Acetaminophen 325 Mg Tablet) 650 mg PO Q6H PRN PRN Reason: Headache/Pain Mild Scale (1-3) Al Hydroxide/Mg Hydroxide (Magnesium Hydrox/Alum Hydrox 30 Ml Oral.Susp) 30 ml PO Q6H PRN PRN Reason: Heartburn/Nausea Clonazepam (Clonazepam 0.5 Mg Tablet) 0.5 mg PO TID PRN PRN Reason: Anxiety Last Admin: 03/23/23 09:29 Dose: 0.5 mg Hydroxyzine HCl (Hydroxyzine Hcl 25 Mg Tablet) 25 mg PO Q6H PRN PRN Reason: Anxiety Last Admin: 03/23/23 04:38 Dose: 25 mg Levothyroxine Sodium (Levothyroxine Sodium 112 Mcg Tablet) 112 mcg PO DAILY [facility] Last Admin: 03/23/23 09:17 Dose: 112 mcg Levothyroxine Sodium (Levothyroxine Sodium 25 Mcg Tablet) 25 mcg PO DAILY@0600 CHALO Levothyroxine Sodium (Levothyroxine Sodium 200 Mcg Tablet) 200 mcg PO DAILY@0600 [facility] Amery Carbonate (Amery Carbonate 300 Mg Capsule) 300 mg PO BID [facility] Last Admin: 03/23/23 09:17 Dose: 300 mg Lurasidone HCl (Lurasidone Hcl 20 Mg Tablet) 20 mg PO DAILY [facility] Last Admin: 03/23/23 09:17 Dose: 20 mg Magnesium Hydroxide (Milk Of Magnesia 30 Ml Oral.Susp) 30 ml PO DAILY PRN PRN Reason: Constipation Melatonin (Melatonin 3 Mg Tablet) 9 mg PO BEDTIME [facility] Last Admin: 03/22/23 20:53 Dose: 9 mg Nystatin (Nystatin Powder 15 Gm Bottle) 1 appl TOPICAL TID [facility]; Protocol Thiamine HCl (Thiamine Hcl 100 Mg Tablet) 100 mg PO DAILY [facility] Last Admin: 03/23/23 10:02 Dose: Not Given Trazodone HCl (Trazodone Hcl 100 Mg Tablet) 100 mg PO BEDTIME MRX1 PRN PRN Reason: Insomnia Home Medications Medication Instructions Recorded Confirmed Last Taken Type clonazepam 0.5 mg tablet 1 tab PO TID PRN Anxiety 02/23/22 03/22/23 02/23/22 History levothyroxine 200 mcg tablet 1 tab PO DAILY 02/23/22 03/22/23 Unknown History lithium carbonate 300 mg capsule 1 cap PO BID 02/23/22 03/22/23 Unknown History melatonin 3 mg tablet 3 tab PO BEDTIME 02/23/22 03/22/23 Unknown History thiamine HCl (vitamin B1) 100 mg 1 tab PO DAILY 02/23/22 03/22/23 Unknown History tablet levothyroxine 25 mcg tablet 25 mcg PO DAILY 03/22/23 03/22/23 Unknown History lurasidone 20 mg tablet 20 mg PO QAM 03/22/23 03/22/23 Unknown History trazodone 150 mg tablet 300 mg PO BEDTIME 03/22/23 03/22/23 Unknown History Physical Exam Vital Signs and Narrative: Vital Signs: Last Vital Signs Temp 97.9 F 03/23/23 09:35 Pulse 72 03/23/23 09:35 Resp 18 03/23/23 09:35 BP 120/77 03/23/23 09:35 Pulse Ox 92 03/23/23 04:11 O2 Del Method Room Air 03/23/23 04:11 BMI result Body Mass Index 28.3 Constitutional - Awake and Alert, No apparent distress Eyes - PERRLA, EOMI Neck - supple, trachea midline. Thryoid normal in size and symmetric without palpable nodule Cardiovascular - S1S2, RRR, No edema Respiratory - Normal lung expansion, Normal respiratory effort, No respiratory distress, CTA bilaterally Skin - Warm/Dry Neurological - Alert & oriented x3 Psychological - Appropriate affect, depressed mood Results Labs 03/22/23 11:34 03/22/23 23:13 Labs: Laboratory Results - last 24 hr 03/22/23 03/22/23 03/22/23 11:50 17:19 19:29 Anion Gap 15 Estim Creat Clear Calc 72.2 Estimated GFR > 60 Random Glucose 120 H Calcium 9.8 D Total Bilirubin AST ALT Alkaline Phosphatase Total Protein Albumin Urine Color Yellow Urine Appearance Hazy Urine pH 6.5 Ur Specific [place] 1.010 Urine Protein 100 (2+) H Urine Glucose (UA) Negative Urine Ketones 15 Urine Blood Moderate (2+) H Urine Nitrite Negative Ur Leukocyte Esterase Small (1+) H Urine RBC 0-2 Urine WBC 11-20 H Ur Squamous Epith Cells 11-20 Urine Bacteria 2+ Hyaline Casts 3-5 COVID-19 (DANIEL) Negative COVID-19 Clin Com See Note 03/22/23 23:13 Anion Gap 13 Estim Creat Clear Calc 67.6 Estimated GFR > 60 Random Glucose 108 Calcium 9.8 Total Bilirubin 0.7 AST 42 H ALT 24 Alkaline Phosphatase 92 Total Protein 7.1 Albumin 4.3 Urine Color Urine Appearance Urine pH Ur Specific [place] Urine Protein Urine Glucose (UA) Urine Ketones Urine Blood Urine Nitrite Ur Leukocyte Esterase Urine RBC Urine WBC Ur Squamous Epith Cells Urine Bacteria Hyaline Casts COVID-19 (DANIEL) COVID-19 Clin Com Assessment and Plan (1) Hypothyroidism: Status: Acute Plan 48-year-old female with history of mood disorder and hypothyroidism admitted to Psychiatry consult placed hospitalist service for management of hypothyroidism. #Hypothyroidism -patient has a long history of noncompliance with her levothyroxine and has not taken this medication in over a month accounting for her elevated TSH and slightly depressed free T4. She is mildly symptomatic. Per the patient's weight, levothyroxine dose should be 112mcg daily. I suspect her dose was increased because she continued to appear hypothyroid due to her noncompliance and medication dose was subsequently increased. I would not recommend restarting this medication at 225 mcg as this is too high of a dose given her history and weight. Recommend continuing 112 mcg daily levothyroxine. Recheck TSH and free T4 in 4-6 weeks, would not recheck sooner or make any further medication adjustments until this time. Thank you for allowing me to participate in this consult. Signing off at this time. Please do not hesitate to call for further questions. Time Spent With Patient Time: Total time managing care of this patient today ____ minutes.
--- NOTE | 2023-03-23 14:24 | PC.NURSE ---
Pt signed a 3 day notice up on , 03/26. MD GATO, SW aware.
[2023-03-23] MEDS: Nystatin Powder 15 GM BOTTLE 1 APPL TOPICAL ×2 (16:49→20:07)
[2023-03-23 17:52] VITALS: BP 124/78; PULSE 78; RESP 18; TEMP 36.6
[2023-03-23] MEDS: Melatonin 3 MG TABLET 9 MG PO (20:07)
[2023-03-23] MEDS: Lithium Carbonate ER 300 MG TABLET.ER 600 MG PO (20:07)
[2023-03-24] MEDS: hydrOXYzine HCL 25 MG TABLET PO ×2 (01:21→14:24)
[2023-03-24] MEDS: cloNIDine HCL 0.1 MG TABLET PO (01:21)
[2023-03-24 07:39] LABS: Fentanyl, urine Not Detected (Not Detect)
[2023-03-24] MEDS: Lurasidone HCl 20 MG TABLET PO (08:54)
[2023-03-24] MEDS: Levothyroxine Sodium 112 MCG TABLET PO (08:54)
[2023-03-24] MEDS: clonazePAM 0.5 MG TABLET PO ×3 (08:54→20:18)
[2023-03-24 08:58] VITALS: BP 105/53; PULSE 74; RESP 16; TEMP 36.6; O2SAT 95
[2023-03-24 08:58] LABS: Alanine Aminotransferase 16 U/L (0-31); Albumin Level 3.9 g/dL (3.5-5.0); Alkaline Phosphatase 74 U/L (39-117); Anion Gap 11 (12-20); Aspartate Amino Transferase 21 U/L (5-31); Bilirubin Direct 0.2 mg/dL (0.0-0.5); Bilirubin Total 0.4 mg/dL (0.0-1.0); Blood Urea Nitrogen 11 mg/dL (9-16); Calcium 9.6 mg/dL (8.4-10.2); Carbon Dioxide 22 mmol/L (22-29); Chloride 109 mmol/L (96-108); Cholesterol 186 mg/dL (<200); Creatinine Clr Calc Pharmacy 72.9; Estimated Glomerular Filt Rate > 60; Glucose Fasting 101 mg/dL (60-99); HDL Cholesterol 51 mg/dL (>40); LDL Cholesterol Calculated 113 mg/dL (<100); Magnesium 2.1 mg/dL (1.6-2.6); Potassium 2.8 mmol/L (3.3-5.1); Sodium 139 mmol/L (135-145); Total Protein 6.3 g/dL (6.5-8.0); Triglycerides 110 mg/dL (<150)
[2023-03-24 09:01] LABS: Estimated Average Glucose 108 mg/dL; Hemoglobin A1c % 5.4 % (<6.0)
[2023-03-24] MEDS: Nystatin Powder 15 GM BOTTLE 1 APPL TOPICAL ×2 (09:06→15:19)
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
[2023-03-24 09:32] LABS: Folate 3.8 ng/mL (> or = 4.0); Vitamin B12 < 148 pg/mL (200-900)
[2023-03-24] MEDS: Potassium Chloride Packet 20 MEQ PACKET 40 MEQ PO (09:35)
[2023-03-24 16:59] VITALS: BP 124/70; PULSE 75; RESP 16; TEMP 36.1; O2SAT 97
[2023-03-24] MEDS: Melatonin 3 MG TABLET 9 MG PO (20:13)
[2023-03-24] MEDS: Lithium Carbonate ER 300 MG TABLET.ER 600 MG PO (20:13)
[2023-03-24] MEDS: traZODone HCL 100 MG TABLET 300 MG PO (20:13)
[2023-03-25] MEDS: Levothyroxine Sodium 112 MCG TABLET PO (09:47)
[2023-03-25] MEDS: Lurasidone HCl 20 MG TABLET PO (09:47)
[2023-03-25] MEDS: Nystatin Powder 15 GM BOTTLE 1 APPL TOPICAL ×3 (10:07→20:37)
[2023-03-25 10:08] VITALS: BP 119/67; PULSE 91; RESP 16; TEMP 36.3; O2SAT 98
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
[2023-03-25] MEDS: clonazePAM 0.5 MG TABLET PO ×2 (11:45→20:29)
[2023-03-25 13:16] LABS: Anion Gap 10 (12-20); Blood Urea Nitrogen 8 mg/dL (9-16); Calcium 9.1 mg/dL (8.4-10.2); Carbon Dioxide 21 mmol/L (22-29); Chloride 110 mmol/L (96-108); Estimated Glomerular Filt Rate > 60; Glucose Random 89 mg/dL (60-115); Potassium 3.3 mmol/L (3.3-5.1); Sodium 138 mmol/L (135-145)
[2023-03-25] MEDS: hydrOXYzine HCL 25 MG TABLET PO (15:50)
[2023-03-25 20:20] VITALS: BP 120/79; PULSE 93; TEMP 36.3
[2023-03-25] MEDS: Melatonin 3 MG TABLET 9 MG PO (20:24)
[2023-03-25] MEDS: cloNIDine HCL 0.1 MG TABLET PO (20:25)
[2023-03-25] MEDS: traZODone HCL 100 MG TABLET 300 MG PO (20:25)
[2023-03-25] MEDS: Lithium Carbonate ER 300 MG TABLET.ER 600 MG PO (20:27)
[2023-03-25] MEDS: Magnesium Hydrox/Alum Hydrox 30 ML ORAL.SUSP PO (20:39)
[2023-03-26 08:00] VITALS: BP 104/51; PULSE 78; RESP 18; TEMP 36.4; O2SAT 94
[2023-03-26] MEDS: clonazePAM 0.5 MG TABLET PO (09:21)
[2023-03-26] MEDS: Levothyroxine Sodium 112 MCG TABLET PO (09:22)
[2023-03-26] MEDS: Nystatin Powder 15 GM BOTTLE 1 APPL TOPICAL (09:22)
[2023-03-26] MEDS: Lurasidone HCl 20 MG TABLET PO (09:22)
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
== END 2023-03-26 13:55 | disposition home or self-care (01) | DRG 753 ==
LOC: HO.ED 17:57 → HO.PM5 03-23 00:57
PROVIDERS: Internal Medicine; Admitting Provider Clinical Nurse Specialist Psychiatric/Mental Health; Emergency Provider Emergency Medicine; Visit Provider Psychiatry & Neurology Psychiatry
DX: F31.9 Bipolar disorder, unspecified (principal); R45.851 Suicidal ideations; Z91.148 Patient's other noncompliance with medication regimen for other reason; F43.10 Post-traumatic stress disorder, unspecified; E03.9 Hypothyroidism, unspecified; Z20.822 Contact with and (suspected) exposure to COVID-19; Z79.890 Hormone replacement therapy; Z79.899 Other long term (current) drug therapy
CPT/HCPCS: 36415; 80048; 80053; 80061; 80076; 80143; 80178; 80179; 80307; 81001; 82607; 82746; 83036; 83735; 84439; 84443; 85025; 87086; 87635; 93005; 99285; J1040; S9485

== ENCOUNTER → 2023-03-23 00:34 | Outpatient (BNV) | payer OTHER, SELFPAY | PROVIDERS: Admitting Provider Clinical Nurse Specialist Psychiatric/Mental Health; Emergency Provider Emergency Medicine; Visit Provider Physician Assistant | DX: E03.9 Hypothyroidism, unspecified (principal) | CPT/HCPCS: 99222 ==

== ENCOUNTER → 2023-03-23 00:34 | Outpatient (BNV) | payer OTHER, SELFPAY | PROVIDERS: Admitting Provider Clinical Nurse Specialist Psychiatric/Mental Health; Emergency Provider Emergency Medicine; Visit Provider Psychiatry & Neurology Psychiatry | DX: F31.63 Bipolar disorder, current episode mixed, severe, without psychotic features (principal); F43.11 Post-traumatic stress disorder, acute; E03.9 Hypothyroidism, unspecified; R79.89 Other specified abnormal findings of blood chemistry | CPT/HCPCS: 90792; 99231; 99232; 99238 ==

== ENCOUNTER 2023-04-10 19:20 | Inpatient (IN) | payer OTHER, SELFPAY ==
--- NOTE | ~2023-04-10 | CT_ITS ---
EXAMINATION: CT HEAD WITHOUT CONTRAST CLINICAL INFORMATION: History of fall and head strike COMPARISON: None available. TECHNIQUE: Contiguous axial imaging was performed from the skull base to vertex without intravenous administration of contrast. This CT examination was performed using dose optimization techniques as appropriate, variously including the following: *Automated exposure control *Adjustment of mA and/or kV according to patient size (this includes techniques or standardized protocols for targeted exams where dose is matched to indication/reason for exam; i.e. extremities or head) *Use of iterative reconstruction technique DLP: 732 mGy-cm FINDINGS: The brain parenchyma has normal attenuation. The hathaway-white matter differentiation is well preserved. No evidence of an acute major vascular territory infarction. No intracranial hemorrhage, extra-axial fluid collection, focal mass effect or midline shift. The ventricles have normal size and configuration; no hydrocephalus. The brainstem and cerebellum have a normal appearance. The cerebellar tonsils are in normal position. The calvarium is intact. The visualized paranasal sinuses, mastoid air cells and middle ear cavities are well aerated. The orbits and globes are unremarkable. The temporomandibular joints are normal. CT/CT head/brain wo IV con IMPRESSION: No evidence of calvarial fracture, intracranial hemorrhage or other acute intracranial pathology.
--- NOTE | ~2023-04-10 | CT_ITS ---
EXAMINATION: CT HEAD WITHOUT CONTRAST CLINICAL INFORMATION: Postconcussion. Increased vomiting. COMPARISON: CT head from 04/14/2023. TECHNIQUE: Contiguous axial imaging was performed from the skull base to vertex without intravenous administration of contrast. This CT examination was performed using dose optimization techniques as appropriate, variously including the following: *Automated exposure control. *Adjustment of mA and/or kV according to patient size (this includes techniques or standardized protocols for targeted exams where dose is matched to indication/reason for exam; i.e. extremities or head). *Use of iterative reconstruction technique. DLP: 552 mGy-cm FINDINGS: There is no evidence of acute intracranial hemorrhage or edematous territorial infarction. [place]-white matter differentiation is preserved. There is no abnormal attenuation within the brain parenchyma. Proportional prominence of the ventricles and sulcal spaces without evidence of obstructive hydrocephalus. No abnormal mass effect or midline shift. No extra-axial fluid collections. No acute soft tissue or osseous abnormalities. The mastoid air cells and visualized paranasal sinuses are clear. Mild degenerative arthropathy of the temporomandibular joints. CT/CT head/brain wo IV con IMPRESSION: No evidence of acute intracranial hemorrhage or edematous territorial infarction.
--- NOTE | ~2023-04-10 | CT_ITS ---
EXAMINATION: CT ABDOMEN AND PELVIS WITHOUT CONTRAST CLINICAL INFORMATION: Vomiting and nausea. COMPARISON: None available. TECHNIQUE: Multidetector volumetric imaging was performed from the superior aspect of the liver through the pubic symphysis. Sagittal and coronal reformatted images were obtained on the technologist's workstation. This CT examination was performed using dose optimization techniques as appropriate, variously including the following: *Automated exposure control *Adjustment of mA and/or kV according to patient size (this includes techniques or standardized protocols for targeted exams where dose is matched to indication/reason for exam; i.e. extremities or head) *Use of iterative reconstruction technique DLP: 500 mGy-cm FINDINGS: LUNG BASES: There is minimal scarring at the left lung base. LIVER, GALLBLADDER, AND BILIARY TREE: The liver is normal in size, shape, and attenuation. No focal hepatic lesion or biliary ductal dilatation is present. There has been a prior cholecystectomy. PANCREAS: Unremarkable. SPLEEN: Unremarkable. ADRENAL GLANDS: Unremarkable. KIDNEYS AND URETERS: The kidneys are normal in size and position. There are scattered bilateral nonobstructing renal calculi measuring up to 3.5 mm mid pole right kidney. There is a 1.7 cm cyst upper pole right kidney. There is no hydronephrosis. BLADDER: Decompressed. GASTROINTESTINAL TRACT: There is submucosal fatty infiltration of the colon. The appendix is visualized and is within normal limits. ABDOMINAL WALL: No significant hernia is appreciated. LYMPH NODES: Normal. VASCULAR: Unremarkable. PELVIC VISCERA: There is a partially calcified uterine fibroid measuring up to 2.2 cm. The adnexal regions are unremarkable. OSSEOUS STRUCTURES: There is mild bilateral hip degenerative change. There is also mild lumbar degenerative change with curvature to the right. CT/CT abdomen pelvis wo IV con IMPRESSION: Nonobstructing bilateral renal calculi. Fibroid uterus. No acute intra-abdominal process identified. Fleischner guidelines were followed.
[2023-04-10 19:38] VITALS: BP 123/85; PULSE 74; RESP 18; TEMP 36.9; O2SAT 97; BMI 28.3
--- NOTE | 2023-04-10 19:42 | ED.GENADULT ---
HPI - General Adult General Chief complaint: Psychiatric Symptoms Stated complaint: crisis Time Seen by Provider: 04/10/23 20:48 Source: patient Mode of arrival: ambulatory Limitations: no limitations History of Present Illness HPI narrative: Patient comes to the emergency room complaining of suicidal ideation. Patient does not disclose any plan. Patient crying, states ?I want to commit suicide?. Patient denies trying to injure herself prior to arrival. Of note, patient was discharged less than a month ago, on March 26 from Psychiatry, patient was treated for bipolar disorder, PTSD. Related Data Home Medications Medication Instructions Recorded Confirmed clonazepam 0.5 mg tablet 0.5 mg PO TID PRN Anxiety 04/10/23 04/10/23 clonidine HCl 0.1 mg tablet 0.1 mg PO TID 04/10/23 04/10/23 levothyroxine 112 mcg tablet 112 mcg PO DAILY 04/10/23 04/10/23 lithium carbonate 300 mg 300 mg PO BID 04/10/23 04/10/23 tablet,extended release lurasidone 20 mg tablet 20 mg PO QAM 04/10/23 04/10/23 melatonin 5 mg tablet 5 mg PO BEDTIME 04/10/23 04/10/23 trazodone 150 mg tablet 150 - 300 mg PO BEDTIME PRN 04/10/23 04/10/23 Insomnia Allergies Allergy/AdvReac Type Severity Reaction Status Date / Time methotrexate Allergy Rash Verified 03/22/23 20:54 warfarin [From Coumadin] Allergy Rash Verified 03/22/23 20:54 Review of Systems Review of Systems: Constitutional : No Weight loss, No Fever, No Chills, No Night Sweats, No Fatigue, No Malaise ENT/Mouth : No Hearing loss, No Ear Pain, No Nasal Congestion, No Sinus Pain, No Hoarseness, No sore throat, No Rhinorrhea, No Swallowing Difficulty Eyes: No Eye Pain, No Swelling, No Redness, No Foreign Body, No Discharge, No Vision Changes Cardiovascular : No Chest Pain, No SOB, No Dyspnea on Exertion, No Orthopnea, No Edema, No Palpitations Respiratory : No Cough, No Sputum, No Wheezing, No Smoke Exposure, No Dyspnea Gastrointestinal : No Nausea, No Vomiting, No Diarrhea, No Constipation, No abdominal Pain, No Hematochezia, No Melena Genitourinary : no irregular bleeding, No Dysuria, No Urinary Frequency, No Hematuria, No Urinary Incontinence, No Urgency, No Flank Pain, No Urinary Flow Changes, No Hesitancy Musculoskeletal : No joint pain, No Myalgias, No Joint Swelling Skin : No Skin Lesions, No rash Neuro : No Weakness, No Numbness, No Paresthesias, No Loss of Consciousness, No Dizziness, No Headache Psych : Complaining of anxiety, depression, SI Heme/Lymph: No Bruising, No Bleeding,No Lymphadenopathy Endocrine : No Polyuria, No Polydipsia, No Temperature Intolerance [facility] Past Medical History Medical History PTSD (post-traumatic stress disorder) Anxiety Hypothyroidism Depression Social History Social History Household Members: Significant Other and Children Housing: Unknown / Unable to assess Do you presently have visiting nurse or other home services: No Patient Tobacco Use Status: Never used Tobacco Substance Use Type: Marijuana Advance Directives: No Advance Directives Information Provided: No Healthcare Proxy: No Guardian: No service: No Sexual orientation: Straight/Heterosexual Physical Exam ED Vital Signs: Vital Signs - 24 hr 04/12/23 09:07 04/12/23 14:41 04/12/23 18:48 Temperature 98.7 F Pulse Rate 84 60 87 Respiratory Rate 16 Blood Pressure 124/58 L 96/55 L 129/60 Pulse Oximetry 92 Oxygen Delivery Method Room Air 04/12/23 20:09 04/13/23 02:01 Temperature 97.9 F 97.9 F Pulse Rate 64 79 Respiratory Rate 16 18 Blood Pressure 113/59 L 115/74 Pulse Oximetry 100 97 Oxygen Delivery Method Room Air Room Air BMI result Body Mass Index 28.3 [facility] Other: Appearance: Alert. Oriented X3. No acute distress. Eyes: Pupils equal, round and reactive to light. ENT: Pharynx normal. Neck: Normal inspection. Neck supple. No lymph nodes noted. No crepitus CVS: Normal heart rate and rhythm. Pulses normal. Normal S1 and S2 Respiratory: No respiratory distress. Breath sounds normal. No Wheezing. No rales Abdomen: Soft and nontender. No rigidity. No distention. Skin: Skin warm and dry. Normal skin color. Normal skin turgor. Extremities: No lower extremity edema. No Lacerations. No Rash Neuro: Oriented X 3. No motor deficit. No sensory deficit. Moving all extremities. No slurred speech. CN 2 through 12 grossly intact Psych: calm, cooperative, teary Course Course Course Narrative: RME- 48 year old female presents for evaluation of depression. She will be brought straight back to the behavioral pod Reevaluation(s) Reevaluation #1: Physician observation continues, VSS, no event reported by the nurse overnight, labs were reviewed revealing UTI will start the patient on Macrobid b.i.d. x7 days, patient also has significant hypothyroidism patient is on levothyroxine 117 mcg daily will increase to 150 daily. Patient is Section 12 and inpatient psych bed search is underway. Time: 08:52 Reevaluation #2: 04/12/2023 06:40 patient remained stable clinically she is here for SI he is on a Section 12 bed search Time: 06:43 Medications Administered Generic Name Dose Route Start Last Admin Trade Name Freq PRN Reason Stop Dose Admin Clonazepam 0.5 mg 04/11/23 00:43 04/13/23 06:32 Clonazepam 0.5 Mg Tablet PO 0.5 mg TID PRN Administration Anxiety Clonidine HCl 0.1 mg 04/11/23 09:00 04/12/23 20:27 Clonidine Hcl 0.1 Mg Tablet PO 0.1 mg TID CHALO Administration Protocol [place] Carbonate 300 mg 04/11/23 09:00 04/12/23 20:27 [place] Carbonate Er 300 Mg Tablet.Er PO 300 mg BID CHALO Administration Lurasidone HCl 20 mg 04/11/23 09:00 04/12/23 09:04 Lurasidone Hcl 20 Mg Tablet PO Not Given DAILY CHALO Melatonin 6 mg 04/11/23 21:00 04/12/23 20:27 Melatonin 3 Mg Tablet PO 6 mg BEDTIME CHALO Administration Nitrofurantoin Macrocrystals 100 mg 04/11/23 09:00 04/12/23 20:27 Nitrofurantoin Monohyd/M-Cryst 100 Mg Capsule PO 100 mg BID CHALO Administration Trazodone HCl 150 mg 04/11/23 00:43 04/12/23 20:27 Trazodone Hcl 50 Mg Tablet PO 150 mg BEDTIME PRN Administration Insomnia Discontinued Medications Generic Name Dose Route Start Last Admin Trade Name Freq PRN Reason Stop Dose Admin Levothyroxine Sodium 112 mcg 04/11/23 06:00 04/11/23 05:54 Levothyroxine Sodium 112 Mcg Tablet PO 112 mcg DAILY@0600 CHALO Administration Levothyroxine Sodium 150 mcg 04/11/23 08:49 04/11/23 09:51 Levothyroxine Sodium 150 Mcg Tablet PO 04/11/23 08:50 150 mcg ONCE ONE Administration Levothyroxine Sodium 112 mcg 04/12/23 09:22 04/12/23 09:29 Levothyroxine Sodium 112 Mcg Tablet PO 04/12/23 09:23 112 mcg ONCE ONE Administration Ondansetron HCl 4 mg 04/11/23 10:44 04/11/23 10:47 Ondansetron Odt 4 Mg Tab.Rapdis TRANSLINGU 04/11/23 10:45 4 mg ONCE ONE Administration Trazodone HCl 100 mg 04/11/23 19:38 04/11/23 19:52 Trazodone Hcl 100 Mg Tablet PO 04/11/23 19:39 100 mg ONCE ONE Administration Trazodone HCl 50 mg 04/11/23 19:38 04/11/23 19:58 Trazodone Hcl 50 Mg Tablet PO 04/11/23 19:39 50 mg ONCE ONE Administration Medical Decision Making Medical Decision Making [facility] Narrative: -my interpretation of labs: Hematology white blood cell count normal, chemistry pending -care team consult pending -physician observation started at 21:00 Differential Diagnosis Differential Diagnoses: The differential diagnosis associated with the presentation includes Lab Data 04/10/23 20:58 04/10/23 20:58 Labs: Lab Results 04/10/23 04/10/23 04/10/23 Range/Units 20:16 20:23 20:58 WBC 8.5 (4.8-10.8) X10*3/uL RBC 5.00 (4.20-5.50) X10*6/uL Hgb 13.9 (12.0-16.0) g/dl Hct 43.3 (37.0-47.0) % MCV 86.6 (80.0-98.0) fL MCH 27.8 (27.0-33.0) pg MCHC 32.1 (31.0-35.0) g/dl RDW 16.8 H (11.0-16.0) % Plt Count 376 (160-400) X10*3/uL MPV 9.1 L (9.4-12.3) fL Immature Gran % (Auto) 0.2 (0.0-0.4) % Neut % (Auto) 55.0 (45-73) % Lymph % (Auto) 32.7 (20-40) % [place] % (Auto) 8.0 (2-11) % Eos % (Auto) 3.5 (0-4) % Baso % (Auto) 0.6 (0-2) % Lymph # (Auto) 2.8 (1.2-4.9) X10*3/uL [place] # (Auto) 0.7 (0.1-1.2) X10*3/uL Eos # (Auto) 0.3 (0.0-0.4) X10*3/uL Baso # (Auto) 0.1 (0.0-0.2) X10*3/uL Abs Immat Gran (auto) 0.02 (0.00-0.03) X10*3/uL Absolute Neuts (auto) 4.7 (2.0-8.3) x10*3/uL Absolute Nucleated RBC 0.000 (0.0-0.012) X10*3/uL Nucleated RBC % (auto) 0.0 (0.0-0.2) /100WBC Sodium 134 L (135-145) mmol/L Potassium 3.3 (3.3-5.1) mmol/L Chloride 107 (96-108) mmol/L Carbon Dioxide 19 L (22-29) mmol/L Anion Gap 11 L (12-20) BUN 12 (9-16) mg/dL Creatinine 1.10 (0.5-1.4) mg/dL Estim Creat Clear Calc 58.4 Estimated GFR 53 Random Glucose 111 (60-115) mg/dL Calcium 9.6 (8.4-10.2) mg/dL Total Bilirubin 0.4 (0.0-1.0) mg/dL AST 12 (5-31) U/L ALT 6 (0-31) U/L Alkaline Phosphatase 81 (39-117) U/L Total Protein 7.2 (6.5-8.0) g/dL Albumin 4.4 (3.5-5.0) g/dL Lipase 114 H (8-78) U/L TSH > 100.00 H (0.32-4.0) uIU/mL Free T4 0.51 L (0.71-1.85) ng/dL Urine Color Yellow Urine Appearance Cloudy Urine pH 6.0 (5.0-9.0) Ur Specific [place] 1.020 (1.005-1.025) Urine Protein 30 (1+) H (Neg-Trace) mg/dL Urine Glucose (UA) Negative (Negative) mg/dL Urine Ketones Trace (Negative) mg/dL Urine Blood Negative (Negative) Urine Nitrite Negative (Negative) Ur Leukocyte Esterase Moderate (2+) H (Negative) Urine RBC 0-2 (0-2) /HPF Urine WBC 21-50 H (0-5) /HPF Ur Squamous Epith Cells 11-20 (0-2) /HPF Urine Bacteria 4+ (None Seen) Hyaline Casts 3-5 (0-2) /LPF Urine Test NEGATIVE (NEGATIVE) Salicylates < 5.0 L (15-30) mg/dL Urine Opiates Screen Not Detected (Not Detect) Urine Fentanyl Screen POSITIVE H (Not Detect) Acetaminophen < 17 (<30) mcg/mL Ur Barbiturates Screen Not Detected (Not Detect) Ur Phencyclidine Scrn Not Detected (Not Detect) Ur Amphetamines Screen POSITIVE H (Not Detect) U Benzodiazepines Scrn POSITIVE H (Not Detect) [place] 0.90 (0.60-1.20) mmol/L Urine Cocaine Screen Not Detected (Not Detect) U Marijuana (THC) Screen POSITIVE H (Not Detect) Ethyl Alcohol < 10 mg/dL COVID-19 (DANIEL) Negative (Negative) COVID-19 Clin Com See Note 04/12/23 Range/Units 18:45 WBC (4.8-10.8) X10*3/uL RBC (4.20-5.50) X10*6/uL Hgb (12.0-16.0) g/dl Hct (37.0-47.0) % MCV (80.0-98.0) fL MCH (27.0-33.0) pg MCHC (31.0-35.0) g/dl RDW (11.0-16.0) % Plt Count (160-400) X10*3/uL MPV (9.4-12.3) fL Immature Gran % (Auto) (0.0-0.4) % Neut % (Auto) (45-73) % Lymph % (Auto) (20-40) % [place] % (Auto) (2-11) % Eos % (Auto) (0-4) % Baso % (Auto) (0-2) % Lymph # (Auto) (1.2-4.9) X10*3/uL [place] # (Auto) (0.1-1.2) X10*3/uL Eos # (Auto) (0.0-0.4) X10*3/uL Baso # (Auto) (0.0-0.2) X10*3/uL Abs Immat Gran (auto) (0.00-0.03) X10*3/uL Absolute Neuts (auto) (2.0-8.3) x10*3/uL Absolute Nucleated RBC (0.0-0.012) X10*3/uL Nucleated RBC % (auto) (0.0-0.2) /100WBC Sodium (135-145) mmol/L Potassium (3.3-5.1) mmol/L Chloride (96-108) mmol/L Carbon Dioxide (22-29) mmol/L Anion Gap (12-20) BUN (9-16) mg/dL Creatinine (0.5-1.4) mg/dL Estim Creat Clear Calc Estimated GFR Random Glucose (60-115) mg/dL Calcium (8.4-10.2) mg/dL Total Bilirubin (0.0-1.0) mg/dL AST (5-31) U/L ALT (0-31) U/L Alkaline Phosphatase (39-117) U/L Total Protein (6.5-8.0) g/dL Albumin (3.5-5.0) g/dL Lipase (8-78) U/L TSH (0.32-4.0) uIU/mL Free T4 (0.71-1.85) ng/dL Urine Color Urine Appearance Urine pH (5.0-9.0) Ur Specific [place] (1.005-1.025) Urine Protein (Neg-Trace) mg/dL Urine Glucose (UA) (Negative) mg/dL Urine Ketones (Negative) mg/dL Urine Blood (Negative) Urine Nitrite (Negative) Ur Leukocyte Esterase (Negative) Urine RBC (0-2) /HPF Urine WBC (0-5) /HPF Ur Squamous Epith Cells (0-2) /HPF Urine Bacteria (None Seen) Hyaline Casts (0-2) /LPF Urine Test (NEGATIVE) Salicylates (15-30) mg/dL Urine Opiates Screen (Not Detect) Urine Fentanyl Screen (Not Detect) Acetaminophen (<30) mcg/mL Ur Barbiturates Screen (Not Detect) Ur Phencyclidine Scrn (Not Detect) Ur Amphetamines Screen (Not Detect) U Benzodiazepines Scrn (Not Detect) [place] (0.60-1.20) mmol/L Urine Cocaine Screen (Not Detect) U Marijuana (THC) Screen (Not Detect) Ethyl Alcohol mg/dL COVID-19 (DANIEL) Negative (Negative) COVID-19 Clin Com See Note Discharge Plan Discharge Clinical Impression: Bipolar disorder, Suicidal ideation Patient Disposition: Still a Patient Prescriptions: No Action clonidine HCl 0.1 mg tablet 0.1 mg PO TID clonazepam 0.5 mg tablet 0.5 mg PO TID PRN (Reason: Anxiety) lithium carbonate 300 mg tablet extended release 300 mg PO BID trazodone 150 mg tablet 150 - 300 mg PO BEDTIME PRN (Reason: Insomnia) lurasidone 20 mg tablet 20 mg PO QAM levothyroxine 112 mcg tablet 112 mcg PO DAILY melatonin 5 mg tablet 5 mg PO BEDTIME Interventions: [place]-Suicide Risk Severity Scale Last Done: 04/13/23 06:00 ED Observation ED Observation Admit Diagnostic Studies: Mental health evaluation ED Observation Progress Notes 1: Progress Note: 04/13/23 - 08:34 Ezekiel Kennedy DO ED Observation Discharge Plan Exam: Patient viewed after boarding in the emergency department they have been here for over 23 hours. vitals were reviewed no new issues has no complaints this morning ate breakfast. Sleeping comfortably did arouse easily and answered all my questions
[2023-04-10 20:33] LABS: UPreg QC Valid YES; Urine Pregnancy NEGATIVE (NEGATIVE)
[2023-04-10 20:34] LABS: Appearance Urine Cloudy; Color Urine Yellow; Glucose Urine UA Negative (Negative); Leukocyte Esterase Urine Moderate (2+) (Negative); Nitrite Urine Negative (Negative); UMIC TRIGGER UA YES; Urine Blood Negative (Negative); Urine Ketones Trace mg/dL (Negative); Urine Protein 30 (1+) mg/dL (Neg-Trace)
[2023-04-10 20:38] LABS: Amphetamine Screen Urine POSITIVE (Not Detect); Barbiturates, Urine Not Detected (Not Detect); Benzodiazepines Screen Urine POSITIVE (Not Detect); Cannabinoid Screen Urine POSITIVE (Not Detect); Cocaine Screen Urine Not Detected (Not Detect); Fentanyl, urine POSITIVE (Not Detect); Opiate Screen Urine Not Detected (Not Detect); Phencyclidine Screen Urine Not Detected (Not Detect)
[2023-04-10 20:40] LABS: COVID-19 Test Negative (Negative); IDNOW Serial# BCCEAD1C
[2023-04-10 20:40] LABS: Bacteria Urine 4+ (None Seen); RBC Urine 0-2 /HPF (0-2); WBC Urine 21-50 /HPF (0-5)
[2023-04-10 21:03] LABS: MANUAL DIFF FLAG NO
[2023-04-10 21:04] LABS: Basophils Absolute Auto 0.1 X10*3/uL (0.0-0.2); Basophils Percent Auto 0.6 % (0-2); Eosinophils Absolute Auto 0.3 X10*3/uL (0.0-0.4); Eosinophils Percent Auto 3.5 % (0-4); Hematocrit 43.3 % (37.0-47.0); Hemoglobin 13.9 g/dl (12.0-16.0); Imm Gran Abs Auto 0.02 X10*3/uL (0.00-0.03); Imm Gran Pct Auto 0.2 % (0.0-0.4); Lymphocytes Absolute Auto 2.8 X10*3/uL (1.2-4.9); Lymphocytes Percent Auto 32.7 % (20-40); Mean Corpuscular HGB Conc 32.1 g/dl (31.0-35.0); Mean Corpuscular Hemoglobin 27.8 pg (27.0-33.0); Mean Corpuscular Volume 86.6 fL (80.0-98.0); Mean Platelet Volume 9.1 fL (9.4-12.3); Monocytes Absolute Auto 0.7 X10*3/uL (0.1-1.2); Neutrophils Absolute Auto 4.7 x10*3/uL (2.0-8.3); Platelet Count 376 X10*3/uL (160-400); Red Cell Distribution Width 16.8 % (11.0-16.0); White Blood Count 8.5 X10*3/uL (4.8-10.8)
[2023-04-10 21:25] LABS: Alanine Aminotransferase 6 U/L (0-31); Albumin Level 4.4 g/dL (3.5-5.0); Alkaline Phosphatase 81 U/L (39-117); Anion Gap 11 (12-20); Aspartate Amino Transferase 12 U/L (5-31); Bilirubin Total 0.4 mg/dL (0.0-1.0); Blood Urea Nitrogen 12 mg/dL (9-16); Calcium 9.6 mg/dL (8.4-10.2); Carbon Dioxide 19 mmol/L (22-29); Chloride 107 mmol/L (96-108); Creatinine Clr Calc Pharmacy 58.4; Estimated Glomerular Filt Rate 53; Ethanol < 10 mg/dL; Glucose Random 111 mg/dL (60-115); Lipase 114 U/L (8-78); Potassium 3.3 mmol/L (3.3-5.1); Sodium 134 mmol/L (135-145); Total Protein 7.2 g/dL (6.5-8.0)
[2023-04-10 21:26] LABS: Acetaminophen LAB < 17 mcg/mL (<30); Salicylate < 5.0 mg/dL (15-30)
[2023-04-10 22:26] LABS: TSH reflex Free T4 > 100.00 uIU/mL (0.32-4.0)
[2023-04-10 23:04] LABS: Free T4 (Free Thyroxine) 0.51 ng/dL (0.71-1.85)
[2023-04-11] MEDS: Lithium Carbonate ER 300 MG TABLET.ER PO ×3 (02:13→19:52)
[2023-04-11] MEDS: clonazePAM 0.5 MG TABLET PO ×2 (02:14→19:59)
[2023-04-11] MEDS: traZODone HCL 50 MG TABLET 150 MG PO ×2 (02:14→19:52)
[2023-04-11 02:33] VITALS: BP 115/80; PULSE 63; RESP 16; TEMP 36.4; O2SAT 95
[2023-04-11] MEDS: Levothyroxine Sodium 112 MCG TABLET PO (05:54)
--- NOTE | 2023-04-11 06:18 | PC.NURSE ---
Patient slept through the night, no distress observed/reported, emotionally unstable mood labile, tearful at time, complaint with her medication, disposition per care team is section 12 inpatient bed search, VSS. labs completed/resulted, will continue to monitor.
[2023-04-11] MEDS: Levothyroxine Sodium 150 MCG TABLET PO (09:51)
[2023-04-11] MEDS: Nitrofurantoin Monohyd/M-Cryst 100 MG CAPSULE PO ×2 (09:51→19:52)
[2023-04-11] MEDS: cloNIDine HCL 0.1 MG TABLET PO ×3 (09:51→19:52)
[2023-04-11] MEDS: Lurasidone HCl 20 MG TABLET PO (10:11)
[2023-04-11] MEDS: Ondansetron ODT 4 MG TAB.RAPDIS TRANSLINGU (10:47)
--- NOTE | 2023-04-11 11:55 | PC.NURSE ---
Patient weepy, stating she wants to go home. Medicated with good effect for complaints of nausea. Denies HI, states some thoughts of SI
--- NOTE | 2023-04-11 17:14 | PC.NURSE ---
Patient with episode of gagging/ spitting up clear flem in bathroom. Re-directed out of bathroom and sat with staff in common area. staff assisted patient with brushing hair. Fluids provided and accepted by patient. Patients boyfriend in to visit, patient weep when boyfriend left.
--- NOTE | 2023-04-11 17:41 | MHC.CARE ---
Tw conducted an [facility]. Assessment was faxed to [facility], [facility] and [facility]. No facility said they were reviewing but will f/u tomorrow 04/12
[2023-04-11] MEDS: Melatonin 3 MG TABLET 6 MG PO (19:52)
[2023-04-11] MEDS: traZODone HCL 100 MG TABLET PO (19:52)
[2023-04-11] MEDS: traZODone HCL 50 MG TABLET PO (19:58)
[2023-04-11 20:16] VITALS: BP 110/60; PULSE 67; RESP 18; TEMP 36.6; O2SAT 98
--- NOTE | 2023-04-12 | ECG_ITS ---
Test Reason : med clearance Blood Pressure : / mmHG Vent. Rate : 064 BPM Atrial Rate : 064 BPM P-R Int : 230 ms QRS Dur : 108 ms QT Int : 568 ms P-R-T Axes : 066 086 067 degrees QTc Int : 585 ms Sinus rhythm with 1st degree A-V block T wave abnormality, consider inferior ischemia T wave abnormality, consider anterolateral ischemia Prolonged QT Abnormal ECG When compared with ECG of 23-MAR-2023 13:23, Inverted T waves have replaced nonspecific T wave abnormality in Lateral leads QT has lengthened Referred By: Sydni Baca Electronically Signed By:STEVE HENDRICKS
[2023-04-12 01:18] VITALS: BP 109/69; PULSE 79; RESP 16; TEMP 36.5; O2SAT 95
--- NOTE | 2023-04-12 06:43 | PC.NURSE ---
Patient slept through the night, no distress observed/reported, VSS, medication compliant, disposition per care team is section 12 inpatient bed search, labs completed/resulted, behavior non concerning, will continue to monitor.
[2023-04-12 07:21] VITALS: BP 99/59; PULSE 92; RESP 16; TEMP 36.2; O2SAT 92
[2023-04-12] MEDS: Nitrofurantoin Monohyd/M-Cryst 100 MG CAPSULE PO ×2 (09:02→20:27)
[2023-04-12] MEDS: cloNIDine HCL 0.1 MG TABLET PO ×2 (09:02→20:27)
[2023-04-12] MEDS: Lithium Carbonate ER 300 MG TABLET.ER PO ×2 (09:04→20:27)
[2023-04-12 09:07] VITALS: BP 124/58; PULSE 84
[2023-04-12] MEDS: clonazePAM 0.5 MG TABLET PO ×2 (09:10→18:48)
[2023-04-12] MEDS: Levothyroxine Sodium 112 MCG TABLET PO (09:29)
[2023-04-12 14:41] VITALS: BP 96/55; PULSE 60; RESP 16; TEMP 37.1; O2SAT 92
[2023-04-12 18:48] VITALS: BP 129/60; PULSE 87
[2023-04-12 19:10] LABS: COVID-19 Test Negative (Negative); IDNOW Serial# BCCEAD1C
[2023-04-12 20:09] VITALS: BP 113/59; PULSE 64; RESP 16; TEMP 36.6; O2SAT 100
[2023-04-12] MEDS: Melatonin 3 MG TABLET 6 MG PO (20:27)
[2023-04-12] MEDS: traZODone HCL 50 MG TABLET 150 MG PO (20:27)
[2023-04-13 02:01] VITALS: BP 115/74; PULSE 79; RESP 18; TEMP 36.6; O2SAT 97
--- NOTE | 2023-04-13 06:22 | PC.NURSE ---
Patient slept through the night, no distress observed/reported, VSS, medication compliant, disposition per care team is section 12 inpatient bed search and patient is pre-accepted to [facility], labs completed/resulted, behavior non concerning, will continue to monitor.
[2023-04-13] MEDS: clonazePAM 0.5 MG TABLET PO (06:32)
[2023-04-13 08:35] VITALS: BP 90/56; PULSE 70; RESP 20; TEMP 36.5; O2SAT 98
[2023-04-13] MEDS: Nitrofurantoin Monohyd/M-Cryst 100 MG CAPSULE PO ×2 (10:06→19:41)
[2023-04-13] MEDS: Lurasidone HCl 20 MG TABLET PO (10:06)
[2023-04-13] MEDS: cloNIDine HCL 0.1 MG TABLET PO ×3 (10:06→19:41)
[2023-04-13] MEDS: Lithium Carbonate ER 300 MG TABLET.ER PO ×2 (10:06→18:30)
[2023-04-13] MEDS: Ondansetron ODT 4 MG TAB.RAPDIS TRANSLINGU ×2 (11:52→18:55)
--- NOTE | 2023-04-13 14:31 | PHA.MEDREC ---
Pharmacy Consult ? Medication Reconciliation Pharmacy has reviewed the medication reconciliation completed by Kedar.
[2023-04-13 16:36] VITALS: BP 101/60; PULSE 70; RESP 15; O2SAT 94
[2023-04-13 17:45] VITALS: BP 114/76; PULSE 79; RESP 16; TEMP 36.4; O2SAT 97; BMI 26.4
[2023-04-13 18:00] VITALS: BP 113/97; PULSE 85; RESP 16; TEMP 35.9
[2023-04-13] MEDS: Melatonin 3 MG TABLET 6 MG PO (19:41)
--- NOTE | 2023-04-13 20:10 | PC.NURSE ---
Pt is alert and oriented; Vital Sign Stable; Pt vomited about 120ml clear liquid, umbrella tipper hand provider notified, new order for zofran given and administered awaiting results.
[2023-04-13] MEDS: traZODone HCL 50 MG TABLET 150 MG PO (20:30)
--- NOTE | 2023-04-13 21:15 | PC.NURSE ---
Pt is alert and oriented X3, Vital sign stable. Pt had unwitnessed fall in the shower around 2100, it infrastructure consultant provider Boby Tobin notified, CT Scan, neuro check and hospitalist consult ordered. Pt is stable at this time resting in her room.
--- NOTE | 2023-04-13 21:54 | P.EN_ITS ---
Event Note Date of Service: 04/13/23 Event Note: 48-year-old female admitted to Psychiatry with consult placed to hospitalist service for evaluation of fall. Earlier this evening, patient was taking a shower and when she exited the shower she fell backwards hitting the occipital scalp on the door. She did not fall to the floor or lose consciousness. She is not on any blood thinners. Initially there was some lightheadedness but after resting in bed she is feeling slightly better. She does have nausea and vomiting with states this has been going on for several days. She she is reporting a 7/10 occipital headache and left frontal headache. No visual changes. On exam, there are no raccoon eyes or Jin sign. She is alert and oriented x4. CN II-XII in tact. There is some mild swelling in the occipital scalp without any laceration or abrasion appreciated. At this time, patient does not meet criteria for head CT per [place] Head CT rules. She can have tylenol prn for headache. Recommend neuro checks q4h as ordered by psychiatry. Thank you for allowing me to participate in this consult. Signing off at this time. Please do not hesitate to call for further questions. Time Spent With Patient Time: Total time managing care of this patient today ____ minutes.
--- NOTE | 2023-04-13 22:02 | PC.ADMIT ---
Pt is a 48 year old female admitted on CV for containment and stabilization after pt reported Suicidal ideation with unclear plan. Pt is alert and oriented x3, VSS, Covid negative, Tox screen positive for MAR, Benzo, Opiate, Amphetamine. Per care team, Pt stated at triage that she wants to commit suicide . Pt appeared tired, calm and cooperative, disheveled and malodorous. She denied SI/HI. she endorsed anxiety, stating anxiety of 6, depression of 4. Speech is low and pressured. Pt reported nausea, crew person provider made aware, order for zofran given with good effect. Admission orders obtained, treatment plan and safety tool completed. Pt currently in bed, respirations even and unlabored and in no apparent distress.
[2023-04-14 08:50] VITALS: BP 107/60; PULSE 69; RESP 18; TEMP 36.3; O2SAT 96
[2023-04-14] MEDS: Lurasidone HCl 20 MG TABLET PO (09:03)
[2023-04-14] MEDS: Levothyroxine Sodium 100 MCG TABLET PO (09:03)
[2023-04-14] MEDS: Nitrofurantoin Monohyd/M-Cryst 100 MG CAPSULE PO (09:03)
[2023-04-14] MEDS: cloNIDine HCL 0.1 MG TABLET PO ×3 (09:04→21:17)
[2023-04-14] MEDS: Acetaminophen 325 MG TABLET 650 MG PO (09:19)
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
[2023-04-14] MEDS: Ondansetron ODT 4 MG TAB.RAPDIS TRANSLINGU ×3 (13:22→20:00)
[2023-04-14] MEDS: clonazePAM 0.5 MG TABLET PO ×2 (13:22→21:18)
--- NOTE | 2023-04-14 18:38 | PC.NURSE ---
PT reports nausea/vomiting and mild headache for 4 day duration. Did have fall yesterday here in the shower. CT results relayed, negative. GCS = 15 Zofran 4mg given, effect pending.
[2023-04-14 19:11] VITALS: BP 152/57; PULSE 69; RESP 18; TEMP 36.3
--- NOTE | 2023-04-14 20:21 | PC.NURSE ---
PT reports continued nausea and one more episode of vomiting. Dr. Chairez contacted via [facility], another 4mg of Zofran ordered and given. Effect pending. VSS.
[2023-04-14 21:16] VITALS: BP 109/64; PULSE 63; RESP 18
[2023-04-14] MEDS: Lithium Carbonate ER 300 MG TABLET.ER 600 MG PO (21:17)
[2023-04-14] MEDS: Melatonin 3 MG TABLET 6 MG PO (21:17)
[2023-04-14] MEDS: traZODone HCL 50 MG TABLET 150 MG PO (21:29)
[2023-04-15 06:00] VITALS: BP 117/68; PULSE 92; RESP 18
[2023-04-15] MEDS: Nitrofurantoin Monohyd/M-Cryst 100 MG CAPSULE PO (08:09)
[2023-04-15] MEDS: cloNIDine HCL 0.1 MG TABLET PO ×2 (08:09→19:57)
[2023-04-15] MEDS: Lurasidone HCl 20 MG TABLET PO ×2 (08:09→19:57)
[2023-04-15] MEDS: Levothyroxine Sodium 100 MCG TABLET PO (08:09)
[2023-04-15] MEDS: Acetaminophen 325 MG TABLET 650 MG PO (08:32)
[2023-04-15] MEDS: clonazePAM 0.5 MG TABLET PO ×3 (08:32→19:56)
--- NOTE | 2023-04-15 10:06 | HO.PSYCHPN ---
Subjective Subjective Date of Service: 04/15/23 Reason For Visit: Depression Interim History: met with patient; discussed with team Patient tearful; says her head hurts. Patient complaining of light sensitivity, noise sensitivity, dizzy if moves to fast, headache. Yesterday evening/night, vomiting (Head CT negative). Pt not sure if nausea/vomiting due to dizziness but reports indicate patient was nauseous prior to fall and may just be exacerbated by dizziness. Patient says that when she gets upset she wants to kill herself. She said she got triggered at the house but does not know why. She says I do not remember why I was upset. She told her boyfriend Lam that she wanted to kill herself and at his behest, was willing to come to the hospital. Patient denies that she had a plan to kill herself and reiterates that when she gets upset she says she wants to kill herself. Patient has signed a 3 day notice and tearfully says I do not want to stay any longer. Rope Tow Operator tried to discuss that this is the 2nd admission in about 2 weeks, with the same presentation, feeling suicidal not taking her medications and at this point nothing has changed and that it does not seem patient is ready to return home. Patient cannot say why she does not some of her take her medication other than she just does not take it. Mental Status Exam Mental Status Exam Narrative: Pt is alert and oriented; behavior is isolative, tearful; no acute distress; regressed/child-like emotional responses; dressed in casual attire with unkempt hair and malodorous; mood is described as depressed and affect congruent, downcast, tearful; eye contact appropriate; Speech is normal rate, volume and prosody and not pressured; psychomotor retardation present; thought process is concrete but goal directed; Thought content is on depression, going home; otherwise pertinent to relevant topics; passive SI; no HI. There is no evidence of perceptual disturbance. Patients insight and judgment impaired. Diagnostics Vital Signs (24Hr): Vital Signs - 24 hr 04/14/23 19:11 04/14/23 21:16 04/15/23 06:00 Temperature 97.4 F Pulse Rate 69 63 92 Respiratory Rate 18 18 18 Blood Pressure 152/57 H 109/64 117/68 BMI result Body Mass Index 26.4 Labs 04/10/23 20:58 04/10/23 20:58 Imaging Radiology Impressions: ITS Impressions Head CT 04/14/23 12:34 IMPRESSION: No evidence of calvarial fracture, intracranial hemorrhage or other acute intracranial pathology. Medications Medications Current Medications Acetaminophen (Acetaminophen 325 Mg Tablet) 650 mg PO Q6H PRN PRN Reason: Headache/Pain Mild Scale (1-3) Last Admin: 04/15/23 08:32 Dose: 650 mg Al Hydroxide/Mg Hydroxide (Magnesium Hydrox/Alum Hydrox 30 Ml Oral.Susp) 30 ml PO Q6H PRN PRN Reason: Heartburn/Nausea Clonazepam (Clonazepam 0.5 Mg Tablet) 0.5 mg PO TID PRN PRN Reason: Anxiety Last Admin: 04/15/23 08:32 Dose: 0.5 mg Clonidine HCl (Clonidine Hcl 0.1 Mg Tablet) 0.1 mg PO TID [facility]; Protocol Last Admin: 04/15/23 08:09 Dose: 0.1 mg Hydroxyzine HCl (Hydroxyzine Hcl 25 Mg Tablet) 25 mg PO Q6H PRN PRN Reason: Anxiety Levothyroxine Sodium (Levothyroxine Sodium 100 Mcg Tablet) 100 mcg PO DAILY [facility] Last Admin: 04/15/23 08:09 Dose: 100 mcg [place] Carbonate ([place] Carbonate Er 300 Mg Tablet.Er) 600 mg PO BEDTIME [facility] Last Admin: 04/14/23 21:17 Dose: 600 mg Lurasidone HCl (Lurasidone Hcl 20 Mg Tablet) 20 mg PO DAILY [facility] Last Admin: 04/15/23 08:09 Dose: 20 mg Magnesium Hydroxide (Milk Of Magnesia 30 Ml Oral.Susp) 30 ml PO DAILY PRN PRN Reason: Constipation Melatonin (Melatonin 3 Mg Tablet) 6 mg PO BEDTIME [facility] Last Admin: 04/14/23 21:17 Dose: 6 mg Nicotine (Nicotine 21 Mg Patch.Td24) 21 mg TRANSDERMA DAILY PRN PRN Reason: smoking cessation Nicotine Polacrilex (Nicotine Polacrilex 2 Mg Gum) 4 mg BUCCAL Q2H PRN PRN Reason: Nicotine Cravings Nitrofurantoin Macrocrystals (Nitrofurantoin Monohyd/M-Cryst 100 Mg Capsule) 100 mg PO BID [facility] Last Admin: 04/15/23 08:09 Dose: 100 mg Ondansetron HCl (Ondansetron Odt 4 Mg Tab.Rapdis) 8 mg TRANSLINGU Q4H PRN PRN Reason: Nausea and Vomiting Trazodone HCl (Trazodone Hcl 50 Mg Tablet) 150 mg PO BEDTIME PRN PRN Reason: Insomnia Last Admin: 04/14/23 21:29 Dose: 150 mg Allergies Allergies Allergy/AdvReac Type Severity Reaction Status Date / Time methotrexate Allergy Rash Verified 03/22/23 20:54 warfarin [From Coumadin] Allergy Rash Verified 03/22/23 20:54 Assessment & Plan Assessment & Plan (1) Bipolar disorder: Status: Acute Code(s): F31.9 - Bipolar disorder, unspecified (2) PTSD (post-traumatic stress disorder): Status: Acute Code(s): F43.10 - Post-traumatic stress disorder, unspecified (3) Hypothyroidism: Status: Acute Code(s): E03.9 - Hypothyroidism, unspecified Plan Pt is a 48 yo female with hx of bipolar disorder, ptsd, recently discharged from , who presents with depression and SI in face of non-adherence with medication. Pt lying in bed. She says things were ok for a little bit... She said she did not take her Latuda or the thyroid medication... When asked why, she said tearfully, i don't know.... She acknowledges that she got depressed and wanted to . Pt said she wants to discharge home now; she starts to cry when discussing the possible need to stay longer Hospital course: 04/14 fell hit head; CT negative 04/15 Patient tearful; says her head hurts. Patient complaining of light sensitivity, noise sensitivity, dizzy if moves to fast, headache. Yesterday evening/night, vomiting (Head CT negative). Pt not sure if nausea/vomiting due to dizziness but reports indicate patient was nauseous prior to fall and may just be exacerbated by dizziness. Patient seems to have mild concussion; discussed with hospitalist FELICITA; will initiate concussion protocols and lower stimulation, moved to dark room Talked about incident. Patient says that when she gets upset she wants to kill herself. She said she got triggered at the house but does not know why;old her boyfriend Lam that she wanted to kill herself and at his behest, came to the hospital. Patient denies that she had a plan to kill herself and reiterates that when she gets upset she says she wants to kill herself. -Patient has signed a 3 day notice and tearfully says I do not want to stay any longer. Rope Tow Operator tried to discuss that this is the 2nd admission in about 2 weeks, with the same presentation, feeling suicidal not taking her medications and at this point nothing has changed and that it does not seem patient is ready to return home. -refuses therapy and tearfully says I'm not going to talk to anybody: -lithium level 0.9 indicating that patient was indeed taking lithium at home; would consider increasing this medication to help with depression as there is a little room to do so, however do not want to risks and side effects and patient discontinuing this medication as well. -might consider Wellbutrin which can help with depression and less risk the for triggering tan, however it does require be taking during the day. dx: Patient meets criteria for bipolar disorder Rope Tow Operator suspects intellectual dissability. Patient has a regressed, child-like emotional response to problems; reportedly repeated the 9th grade 3 times; concrete; appears to have limited understanding Plan: 3 day q15; -Will initiate concussion protocols, moving patient to a darkened room, reducing sensory stimulation; tylenol for headache -continue lithium ER 600 mg q.h.s. -restart levothyroxine 100 mcg; will likely move it to bedtime since patient only takes medications at bedtime. While this is not ideal and not the way it is supposed to be taking, getting some amount of levothyroxine into her system is better than none -continue Latuda for now; however not clear if this medication is helpful and patient has not been taking -Macrobid started in the emergency room for UTI; patient says she is nauseous and attributes that this medication; discussed with hospitalist FELICITA who will consider change Prep pursue collateral; patient said it was okay for staff writer and criminal justice social worker to call her boyfriend Lam Patient educated on: diagnosis, medication risk/benefits and medical condition Informed Consent: understands Reason for continued inpatient stay Substantial Risk for: rapid decompensation Time Spent With Patient Time: Total time managing care of this patient today ____ minutes.
[2023-04-15] MEDS: Acetaminophen 325 MG TABLET 975 MG PO (12:50)
[2023-04-15] MEDS: Ondansetron ODT 8 MG TAB.RAPDIS TRANSLINGU (12:50)
--- NOTE | 2023-04-15 14:01 | P.EN_ITS ---
Event Note Date of Service: 04/15/23 Event Note: Pt seen and examined in follow up for fall with head strike. There was no LOC and patient hit back of head on door, did not fall to floor. See prior note. Psychiatry did order head CT which was negative. Pt continues to report occipital headache rated 5/10. There is associated lightheadedness which improves when laying with eyes closed in dark room. No photopobia or phonophobia. She does continue with nausea and vomiting but this started prior to attival on unit, unclear when it actually started as patient is somewhat vague. She is A&Ox3. CN II-XII in tact. Ambulating without ataxia or balance disturbance. She is now complaining of tightness in the neck and low back. Discussed she likely has a mild-moderate concussion that unfortunately takes time to resolve. Recommend cognitive rest as discussed with psychiatry. She continues to have n/v despite ondansetron being increased to 8mg TID. Reviewed last EKG which revealed qtc 585. Discontinued the zofran. Discussed with dr. Curiel. Recommend inhaled isopropyl alcohol prn and topical capsaicin cream on t he epigastric area. Unfortunately oral antiemetics carry increased risk of prolonged qtc and would not recommend at this time. I will discontinue macrobid as this could be contributing to the n/v and urine culture does not reveal UTI. Time Spent With Patient Time: Total time managing care of this patient today ____ minutes.
[2023-04-15 14:04] VITALS: BP 100/58
[2023-04-15 19:55] VITALS: BP 118/69; PULSE 75; RESP 18; TEMP 36.3
[2023-04-15] MEDS: Melatonin 3 MG TABLET 6 MG PO (19:56)
[2023-04-15] MEDS: traZODone HCL 50 MG TABLET 150 MG PO (19:56)
[2023-04-15] MEDS: Lithium Carbonate ER 300 MG TABLET.ER 600 MG PO (19:56)
[2023-04-16 08:05] VITALS: BP 144/66; PULSE 87; RESP 18; TEMP 36
[2023-04-16] MEDS: cloNIDine HCL 0.1 MG TABLET PO ×3 (08:51→20:01)
[2023-04-16] MEDS: clonazePAM 0.5 MG TABLET PO (08:52)
[2023-04-16] MEDS: Acetaminophen 325 MG TABLET 975 MG PO (14:32)
--- NOTE | 2023-04-16 16:38 | P.PNPSI_ITS ---
Subjective Subjective Date of Service: 04/16/23 Reason For Visit: Depression Interim History: met w/ patient; discussed with team; pt continues to complain of concussion symptoms, dizzy, headache however says headache getting a little better; says back hurts too and agrees to lidocaine patch. Yesterday pt retracted 3 day notice (signed another one) since automotive service writer agreed to dc her thursday since no longer SI and have a plan for meds w/ boyfriend Lam. Today, she still wants to go home but agrees she will likely benefit from staying longer since continues to have concussion symptoms. Talked about meeting and she says Lam is nice to her. later in day yesterday, had family meeting with pt and boyfriend Lam. He reports pt never said she was going to kill herself but just that she got upset and told him she wished she were ; says lasted for 3 days and he asked her what she wanted to do and she agreed to go to ED to talk to someone. He does not know the trigger for what made her upset since she won't tell him, which pt confirms (and won't tell automotive service writer). Lam says he's home in evening time and so she takes pm meds, but skips morning meds. Discussed need for meds and will switch to bedtime to which pt was amenable. Mental Status Exam Mental Status Exam Narrative: Pt is alert and oriented; behavior tearful; regressed/child-like emotional responses; dressed in casual attire with unkempt hair and malodorous; mood is described as depressed and affect congruent, downcast, tearful; eye contact appropriate; Speech is normal rate, volume and prosody and not pressured; psychomotor retardation present; thought process is concrete but goal directed; Thought content is on depression, going home; otherwise pertinent to relevant topics; passive SI; no HI. There is no evidence of perceptual disturbance. Patients insight and judgment impaired but approaching baseline. Diagnostics Vital Signs (24Hr): Vital Signs - 24 hr 04/15/23 19:55 04/16/23 08:05 Temperature 97.3 F 96.8 F Pulse Rate 75 87 Respiratory Rate 18 18 Blood Pressure 118/69 144/66 H BMI result Body Mass Index 26.4 Labs 04/10/23 20:58 04/10/23 20:58 Imaging Radiology Impressions: ITS Impressions Head CT 04/14/23 12:34 IMPRESSION: No evidence of calvarial fracture, intracranial hemorrhage or other acute intracranial pathology. Medications Medications Current Medications Acetaminophen (Acetaminophen 325 Mg Tablet) 975 mg PO Q6H PRN PRN Reason: Headache/Pain Mild Scale (1-3) Last Admin: 04/16/23 14:32 Dose: 975 mg Al Hydroxide/Mg Hydroxide (Magnesium Hydrox/Alum Hydrox 30 Ml Oral.Susp) 30 ml PO Q6H PRN PRN Reason: Heartburn/Nausea Capsaicin (Capsaicin 0.025% Cream 60 Gm Tube) 1 appl TOPICAL QID PRN; Protocol PRN Reason: Nausea and Vomiting Clonazepam (Clonazepam 0.5 Mg Tablet) 0.5 mg PO TID PRN PRN Reason: Anxiety Last Admin: 04/16/23 08:52 Dose: 0.5 mg Clonidine HCl (Clonidine Hcl 0.1 Mg Tablet) 0.1 mg PO TID [facility]; Protocol Last Admin: 04/16/23 14:32 Dose: 0.1 mg Hydroxyzine HCl (Hydroxyzine Hcl 25 Mg Tablet) 25 mg PO Q6H PRN PRN Reason: Anxiety Levothyroxine Sodium (Levothyroxine Sodium 112 Mcg Tablet) 112 mcg PO BEDTIME [facility] [place] Carbonate ([place] Carbonate Er 300 Mg Tablet.Er) 600 mg PO BEDTIME [facility] Last Admin: 04/15/23 19:56 Dose: 600 mg Lurasidone HCl (Lurasidone Hcl 20 Mg Tablet) 20 mg PO BEDTIME [facility] Last Admin: 04/15/23 19:57 Dose: 20 mg Magnesium Hydroxide (Milk Of Magnesia 30 Ml Oral.Susp) 30 ml PO DAILY PRN PRN Reason: Constipation Melatonin (Melatonin 3 Mg Tablet) 6 mg PO BEDTIME [facility] Last Admin: 04/15/23 19:56 Dose: 6 mg Nicotine (Nicotine 21 Mg Patch.Td24) 21 mg TRANSDERMA DAILY PRN PRN Reason: smoking cessation Nicotine Polacrilex (Nicotine Polacrilex 2 Mg Gum) 4 mg BUCCAL Q2H PRN PRN Reason: Nicotine Cravings Tizanidine HCl (Tizanidine Hcl 4 Mg Tablet) 4 mg PO TID PRN PRN Reason: muscle spasm Trazodone HCl (Trazodone Hcl 50 Mg Tablet) 150 mg PO BEDTIME PRN PRN Reason: Insomnia Last Admin: 04/15/23 19:56 Dose: 150 mg Allergies Allergies Allergy/AdvReac Type Severity Reaction Status Date / Time methotrexate Allergy Rash Verified 03/22/23 20:54 warfarin [From Coumadin] Allergy Rash Verified 03/22/23 20:54 Assessment & Plan Assessment & Plan (1) Bipolar disorder: Status: Acute Code(s): F31.9 - Bipolar disorder, unspecified (2) PTSD (post-traumatic stress disorder): Status: Acute Code(s): F43.10 - Post-traumatic stress disorder, unspecified (3) Hypothyroidism: Status: Acute Code(s): E03.9 - Hypothyroidism, unspecified (4) Intellectual disability: Status: Suspected Code(s): F79 - Unspecified intellectual disabilities Plan Pt is a 48 yo female with hx of bipolar disorder, ptsd, recently discharged from , who presents with depression and SI in face of non-adherence with medication. Pt lying in bed. She says things were ok for a little bit... She said she did not take her Latuda or the thyroid medication... When asked why, she said tearfully, i don't know.... She acknowledges that she got depressed and wanted to . Pt said she wants to discharge home now; she starts to cry when discussing the possible need to stay longer Hospital course: 04/14 fell hit head; CT negative 04/15 Patient tearful; says her head hurts. Patient complaining of light sensitivity, noise sensitivity, dizzy if moves to fast, headache. Yesterday evening/night, vomiting (Head CT negative). Pt not sure if nausea/vomiting due to dizziness but reports indicate patient was nauseous prior to fall and may just be exacerbated by dizziness. Patient seems to have mild concussion; discussed with hospitalist FELICITA; will initiate concussion protocols and lower stimulation, moved to dark room -Talked about incident. Patient says that when she gets upset she wants to kill herself. She said she got triggered at the house but does not know why;told her boyfriend Lam that she wanted to kill herself and at his behest, came to the hospital. Patient denies that she had a plan to kill herself and reiterates that when she gets upset she says she wants to kill herself. -Patient has signed a 3 day notice and tearfully says I do not want to stay any longer. Mixing Machine Attendant tried to discuss that this is the 2nd admission in about 2 weeks, with the same presentation, feeling suicidal not taking her medications and at this point nothing has changed and that it does not seem patient is ready to return home. -refuses therapy and tearfully says I'm not going to talk to anybody: -lithium level 0.9 indicating that patient was indeed taking lithium at home; would consider increasing this medication to help with depression as there is a little room to do so, however do not want to risks and side effects and patient discontinuing this medication as well. -might consider Wellbutrin which can help with depression and less risk the for triggering tan, however it does require be taking during the day. 04/16 yesterday meeting with Lam/boyfriend who thinks she is safe to come home; all agree to move meds to bedtime so Lam can help with adhence. continued concussion symptoms; pt wanted to DC Thursday (and automotive service writer not opposed) however she thinks she may need to stay longer dx: Patient meets criteria for bipolar disorder; pTSD Mixing Machine Attendant suspects intellectual dissability. Patient has a regressed, child-like emotional response to problems; reportedly repeated the 9th grade 3 times; concrete; appears to have limited understanding Plan: 3 day (new one) q15; -concussion protocols, moving patient to a darkened room, reducing sensory stimulation; tylenol for headache -continue lithium ER 600 mg q.h.s. -restart levothyroxine 100 mcg; will move it to bedtime since patient only takes medications at bedtime. While this is not ideal and not the way it is supposed to be taking, getting some amount of levothyroxine into her system is better than none -continue Latuda but nighttime; not clear if this medication is helpful and patient has not been taking -Macrobid dc'd; hospitalist says no UTI Patient educated on: diagnosis, medication risk/benefits and medical condition Informed Consent: understands and further education needed Reason for continued inpatient stay Substantial Risk for: stable for discharge and med/psych decompensation Time Spent With Patient Time: Total time managing care of this patient today ____ minutes.
[2023-04-16] MEDS: Capsaicin 0.025% Cream 60 GM TUBE 1 APPL TOPICAL ×2 (16:42→19:48)
[2023-04-16] MEDS: Lidocaine 4 % Patch ADH..PATCH 1 PATCH TRANSDERMA (17:35)
--- NOTE | 2023-04-16 18:01 | PC.NURSE ---
1754 hospitalist operations forester notified of consult for ear pain.
[2023-04-16 19:45] VITALS: BP 131/94; PULSE 104; TEMP 36.6
[2023-04-16] MEDS: Lithium Carbonate ER 300 MG TABLET.ER 600 MG PO (20:00)
[2023-04-16] MEDS: Melatonin 3 MG TABLET 6 MG PO (20:00)
[2023-04-16] MEDS: traZODone HCL 50 MG TABLET 150 MG PO (20:01)
[2023-04-16] MEDS: Levothyroxine Sodium 112 MCG TABLET PO (20:01)
[2023-04-16] MEDS: Lurasidone HCl 20 MG TABLET PO (20:01)
--- NOTE | 2023-04-16 20:55 | PM.PSYDC ---
DS: Providers Provider Date of Service: 04/17/23 Date of admission: 04/13/23 15:31 Date of discharge: 04/17/23 Primary care physician: Unknown Physician Consults: 04/13/23 10:58 Consult to Hospitalist Routine Comment: Consulting Provider: Hospitalist Reason For Exam: Fall, head trauma 04/16/23 17:45 Consult to Hospitalist Routine Comment: Dr. Chairez's pt, requesting ear exam Consulting Provider: Hospitalist Reason For Exam: s/p concussion, pt reporting ear pain sx to MD DS: Diagnosis Discharge Diagnosis (1) Bipolar disorder: Status: Acute (2) PTSD (post-traumatic stress disorder): Status: Acute (3) Hypothyroidism: Status: Acute (4) Intellectual disability: Status: Suspected DS: Medications Discharge Medications Home Medications: Home Medications Medication Instructions Recorded Confirmed clonazepam 0.5 mg tablet 0.5 mg PO TID PRN Anxiety 04/10/23 04/10/23 clonidine HCl 0.1 mg tablet 0.1 mg PO TID 04/10/23 04/10/23 levothyroxine 112 mcg tablet 112 mcg PO DAILY 04/10/23 04/10/23 lithium carbonate 300 mg 300 mg PO BID 04/10/23 04/10/23 tablet,extended release lurasidone 20 mg tablet 20 mg PO QAM 04/10/23 04/10/23 melatonin 5 mg tablet 5 mg PO BEDTIME 04/10/23 04/10/23 trazodone 150 mg tablet 150 - 300 mg PO BEDTIME PRN 04/10/23 04/10/23 Insomnia Data Data Completed and Pending Completed studies during hospitalization [Text1]: 04/10/23 04/10/23 04/10/23 20:16 20:23 20:58 WBC 8.5 RBC 5.00 Hgb 13.9 Hct 43.3 MCV 86.6 MCH 27.8 MCHC 32.1 RDW 16.8 H Plt Count 376 MPV 9.1 L Immature Gran % (Auto) 0.2 Neut % (Auto) 55.0 Lymph % (Auto) 32.7 [place] % (Auto) 8.0 Eos % (Auto) 3.5 Baso % (Auto) 0.6 Lymph # (Auto) 2.8 [place] # (Auto) 0.7 Eos # (Auto) 0.3 Baso # (Auto) 0.1 Abs Immat Gran (auto) 0.02 Absolute Neuts (auto) 4.7 Absolute Nucleated RBC 0.000 Nucleated RBC % (auto) 0.0 Sodium 134 L Potassium 3.3 Chloride 107 Carbon Dioxide 19 L Anion Gap 11 L BUN 12 Creatinine 1.10 Estim Creat Clear Calc 58.4 Estimated GFR 53 Random Glucose 111 Calcium 9.6 Total Bilirubin 0.4 AST 12 ALT 6 Alkaline Phosphatase 81 Total Protein 7.2 Albumin 4.4 Lipase 114 H TSH > 100.00 H Free T4 0.51 L Urine Color Yellow Urine Appearance Cloudy Urine pH 6.0 Ur Specific [place] 1.020 Urine Protein 30 (1+) H Urine Glucose (UA) Negative Urine Ketones Trace Urine Blood Negative Urine Nitrite Negative Ur Leukocyte Esterase Moderate (2+) H Urine RBC 0-2 Urine WBC 21-50 H Ur Squamous Epith Cells 11-20 Urine Bacteria 4+ Hyaline Casts 3-5 Urine Test NEGATIVE Salicylates < 5.0 L Urine Opiates Screen Not Detected Urine Fentanyl Screen POSITIVE H Acetaminophen < 17 Ur Barbiturates Screen Not Detected Ur Phencyclidine Scrn Not Detected Ur Amphetamines Screen POSITIVE H U Benzodiazepines Scrn POSITIVE H [place] 0.90 Urine Cocaine Screen Not Detected U Marijuana (THC) Screen POSITIVE H Ethyl Alcohol < 10 COVID-19 (DANIEL) Negative COVID-19 Clin Com See Note 04/12/23 18:45 WBC RBC Hgb Hct MCV MCH MCHC RDW Plt Count MPV Immature Gran % (Auto) Neut % (Auto) Lymph % (Auto) [place] % (Auto) Eos % (Auto) Baso % (Auto) Lymph # (Auto) [place] # (Auto) Eos # (Auto) Baso # (Auto) Abs Immat Gran (auto) Absolute Neuts (auto) Absolute Nucleated RBC Nucleated RBC % (auto) Sodium Potassium Chloride Carbon Dioxide Anion Gap BUN Creatinine Estim Creat Clear Calc Estimated GFR Random Glucose Calcium Total Bilirubin AST ALT Alkaline Phosphatase Total Protein Albumin Lipase TSH Free T4 Urine Color Urine Appearance Urine pH Ur Specific [place] Urine Protein Urine Glucose (UA) Urine Ketones Urine Blood Urine Nitrite Ur Leukocyte Esterase Urine RBC Urine WBC Ur Squamous Epith Cells Urine Bacteria Hyaline Casts Urine Test Salicylates Urine Opiates Screen Urine Fentanyl Screen Acetaminophen Ur Barbiturates Screen Ur Phencyclidine Scrn Ur Amphetamines Screen U Benzodiazepines Scrn [place] Urine Cocaine Screen U Marijuana (THC) Screen Ethyl Alcohol COVID-19 (DANIEL) Negative COVID-19 Clin Com See Note Imaging Diagnostic Imaging Impressions Head CT 04/14/23 12:34 IMPRESSION: No evidence of calvarial fracture, intracranial hemorrhage or other acute intracranial pathology. DS: Summary Time Spent with Patient Time attestation: Total time managing care of this patient today ____ minutes. Discharge Plan Discharge Patient Disposition: Home, Self-Care Discharge Diagnosis: Bipolar I, recurrent, severe, most recent episode depressed Referrals: Physician,Unknown J [Primary Care Provider] - 1 Week Discharge Medications: New trazodone 50 mg Tablet 150 mg PO BEDTIME PRN (Reason: Insomnia) Qty: 0 0RF lithium carbonate 300 mg Tablet Extended Release 600 mg PO BEDTIME Qty: 0 0RF levothyroxine 112 mcg Tablet 112 mcg PO BEDTIME Qty: 0 0RF lurasidone [Latuda] 20 mg Tablet 20 mg PO BEDTIME Qty: 0 0RF Continued clonidine HCl 0.1 mg tablet 0.1 mg PO TID clonazepam 0.5 mg tablet 0.5 mg PO TID PRN (Reason: Anxiety) melatonin 5 mg tablet 5 mg PO BEDTIME Discontinued lithium carbonate 300 mg tablet extended release 300 mg PO BID trazodone 150 mg tablet 150 - 300 mg PO BEDTIME PRN (Reason: Insomnia) lurasidone 20 mg tablet 20 mg PO QAM levothyroxine 112 mcg tablet 112 mcg PO DAILY Diet: Regular diet Activity on Discharge: As tolerated Stand Alone Forms: Patient Portal Discharge page Care Plan Goals: Maintain mood and safe behaviors Take medications as prescribed Practice coping skills Continue with outpatient providers and reach out to them as needed Health Concerns: Mood stability and behaviors Concussion Hypothroid Plan of Treatment: Follow up with your PCP, psychiatric provider and other outpatient providers regarding above concerns Take medications as prescribed Assessment: Risk assessment at time of discharge:? Patient was interviewed prior to discharge and found to be fully oriented and without any SI or HI. Patient has insight and demonstrates good judgment in terms of wanting to pursue treatment. Patient is not in imminent risk of harm to self or others and has a safety plan that includes presenting to the closest ER or calling 911 if feeling unsafe.? Patient has been observed closely by nursing and unit staff throughout admission; patient has not engaged in any behaviors that suggest dangerousness to self or others and has demonstrated appropriate behaviors and impulse control
--- NOTE | 2023-04-17 | ECG_ITS ---
Test Reason : r/o qtc prolongation Blood Pressure : / mmHG Vent. Rate : 108 BPM Atrial Rate : 535 BPM P-R Int : 000 ms QRS Dur : 106 ms QT Int : 304 ms P-R-T Axes : 061 079 246 degrees QTc Int : 407 ms Sinus tachycardia Left ventricular hypertrophy with repolarization abnormality ( Boy product ) Cannot rule out Inferior infarct , age undetermined Abnormal ECG When compared with ECG of 12-APR-2023 20:17, Vent. rate has increased BY 44 BPM Minimal criteria for Inferior infarct are now Present T wave inversion less evident in Anterior leads QT has shortened Referred By: Bertha Lancaster Electronically Signed By:STEVE HENDRICKS
--- NOTE | 2023-04-17 05:34 | PC.NURSE ---
PT vomitted 2x on the overnight, refusing zofran. RN saw about a cup of foul smelling green thin liquid in emesis bag. VSS.
[2023-04-17 09:00] VITALS: BP 116/57; PULSE 92; RESP 18; TEMP 36.9; O2SAT 96
--- NOTE | 2023-04-17 09:24 | P.PNPSI_ITS ---
Subjective Subjective Date of Service: 04/17/23 Reason For Visit: Depression Interim History: Met with patient; discussed with team continues to c/o nausea and vomiting that won't stop; c/o dizziness and confusion. As well as b/l ear aches. will consult medicine to help find alternative to zofran given limited effect. Continued symptoms may warrant repeat head CT Mental Status Exam Mental Status Exam Narrative: Pt is alert and oriented; behavior tearful; regressed/child-like emotional responses; dressed in casual attire with unkempt hair and malodorous; mood is described as sick and affect congruent; eye contact appropriate; Speech is normal rate, volume and prosody and not pressured;no psychomotor retardation present; thought process is concrete but goal directed; Thought content is on felling sick; otherwise pertinent to relevant topics;no SI; no HI. There is no evidence of perceptual disturbance. Patients insight and judgment impaired but at baseline and adequate. Diagnostics Vital Signs (24Hr): Vital Signs - 24 hr 04/16/23 19:45 04/17/23 09:00 Temperature 97.9 F 98.5 F Pulse Rate 104 H 92 Respiratory Rate 18 Blood Pressure 131/94 H 116/57 L Pulse Oximetry 96 Oxygen Delivery Method Room Air BMI result Body Mass Index 26.4 Labs 04/10/23 20:58 04/10/23 20:58 Imaging Radiology Impressions: ITS Impressions Head CT 04/14/23 12:34 IMPRESSION: No evidence of calvarial fracture, intracranial hemorrhage or other acute intracranial pathology. Medications Medications Current Medications Acetaminophen (Acetaminophen 325 Mg Tablet) 975 mg PO Q6H PRN PRN Reason: Headache/Pain Mild Scale (1-3) Last Admin: 04/16/23 14:32 Dose: 975 mg Al Hydroxide/Mg Hydroxide (Magnesium Hydrox/Alum Hydrox 30 Ml Oral.Susp) 30 ml PO Q6H PRN PRN Reason: Heartburn/Nausea Capsaicin (Capsaicin 0.025% Cream 60 Gm Tube) 1 appl TOPICAL QID PRN; Protocol PRN Reason: Nausea and Vomiting Last Admin: 04/16/23 19:48 Dose: 1 appl Clonazepam (Clonazepam 0.5 Mg Tablet) 0.5 mg PO TID PRN PRN Reason: Anxiety Last Admin: 04/16/23 08:52 Dose: 0.5 mg Clonidine HCl (Clonidine Hcl 0.1 Mg Tablet) 0.1 mg PO TID [facility]; Protocol Last Admin: 04/17/23 09:00 Dose: Not Given Hydroxyzine HCl (Hydroxyzine Hcl 25 Mg Tablet) 25 mg PO Q6H PRN PRN Reason: Anxiety Levothyroxine Sodium (Levothyroxine Sodium 112 Mcg Tablet) 112 mcg PO BEDTIME [facility] Last Admin: 04/16/23 20:01 Dose: 112 mcg Lidocaine (Lidocaine 4 % Patch Adh..Patch) 1 patch TRANSDERMA DAILY [facility]; Protocol Last Admin: 04/17/23 09:00 Dose: Not Given [place] Carbonate ([place] Carbonate Er 300 Mg Tablet.Er) 600 mg PO BEDTIME [facility]ALO Last Admin: 04/16/23 20:00 Dose: 600 mg Lurasidone HCl (Lurasidone Hcl 20 Mg Tablet) 20 mg PO BEDTIME [facility]O Last Admin: 04/16/23 20:01 Dose: 20 mg Magnesium Hydroxide (Milk Of Magnesia 30 Ml Oral.Susp) 30 ml PO DAILY PRN PRN Reason: Constipation Melatonin (Melatonin 3 Mg Tablet) 6 mg PO BEDTIME [facility] Last Admin: 04/16/23 20:00 Dose: 6 mg Nicotine (Nicotine 21 Mg Patch.Td24) 21 mg TRANSDERMA DAILY PRN PRN Reason: smoking cessation Nicotine Polacrilex (Nicotine Polacrilex 2 Mg Gum) 4 mg BUCCAL Q2H PRN PRN Reason: Nicotine Cravings Tizanidine HCl (Tizanidine Hcl 4 Mg Tablet) 4 mg PO TID PRN PRN Reason: muscle spasm Trazodone HCl (Trazodone Hcl 50 Mg Tablet) 150 mg PO BEDTIME PRN PRN Reason: Insomnia Last Admin: 04/16/23 20:01 Dose: 150 mg Allergies Allergies Allergy/AdvReac Type Severity Reaction Status Date / Time methotrexate Allergy Rash Verified 03/22/23 20:54 warfarin [From Coumadin] Allergy Rash Verified 03/22/23 20:54 Assessment & Plan Assessment & Plan (1) Bipolar disorder: Status: Acute Code(s): F31.9 - Bipolar disorder, unspecified (2) PTSD (post-traumatic stress disorder): Status: Acute Code(s): F43.10 - Post-traumatic stress disorder, unspecified (3) Hypothyroidism: Status: Acute Code(s): E03.9 - Hypothyroidism, unspecified (4) Intellectual disability: Status: Suspected Code(s): F79 - Unspecified intellectual disabilities Plan Pt is a 48 yo female with hx of bipolar disorder, ptsd, recently discharged from , who presents with depression and SI in face of non-adherence with medication. Pt lying in bed. She says things were ok for a little bit... She said she did not take her Latuda or the thyroid medication... When asked why, she said tearfully, i don't know.... She acknowledges that she got depressed and wanted to . Pt said she wants to discharge home now; she starts to cry when discussing the possible need to stay longer Hospital course: 04/14 fell hit head; CT negative 04/15 Patient tearful; says her head hurts. Patient complaining of light sensitivity, noise sensitivity, dizzy if moves to fast, headache. Yesterday evening/night, vomiting (Head CT negative). Pt not sure if nausea/vomiting due to dizziness but reports indicate patient was nauseous prior to fall and may just be exacerbated by dizziness. Patient seems to have mild concussion; discussed with hospitalist FELICITA; will initiate concussion protocols and lower stimulation, moved to dark room -Talked about incident. Patient says that when she gets upset she wants to kill herself. She said she got triggered at the house but does not know why;told her boyfriend Lam that she wanted to kill herself and at his behest, came to the hospital. Patient denies that she had a plan to kill herself and reiterates that when she gets upset she says she wants to kill herself. -Patient has signed a 3 day notice and tearfully says I do not want to stay any longer. Beverage Steward tried to discuss that this is the 2nd admission in about 2 weeks, with the same presentation, feeling suicidal not taking her medications and at this point nothing has changed and that it does not seem patient is ready to return home. -refuses therapy and tearfully says I'm not going to talk to anybody: -lithium level 0.9 indicating that patient was indeed taking lithium at home; would consider increasing this medication to help with depression as there is a little room to do so, however do not want to risks and side effects and patient discontinuing this medication as well. -might consider Wellbutrin which can help with depression and less risk the for triggering tan, however it does require be taking during the day. 04/16 yesterday meeting with Lam/boyfriend who thinks she is safe to come home; all agree to move meds to bedtime so Lam can help with adhence. continued concussion symptoms; pt wanted to DC Thursday (and greeting card writer not opposed) however she thinks she may need to stay longer 04/17 continued concussion symptoms; vomiting; ej re-consult medicine dx: Patient meets criteria for bipolar disorder; pTSD Beverage Steward suspects intellectual dissability. Patient has a regressed, child-like emotional response to problems; reportedly repeated the 9th grade 3 times; concrete; appears to have limited understanding Plan: 3 day (new one) q15; -concussion protocols, moving patient to a darkened room, reducing sensory stimulation; tylenol for headache -continue lithium ER 600 mg q.h.s. -restart levothyroxine 100 mcg; will move it to bedtime since patient only takes medications at bedtime. While this is not ideal and not the way it is supposed to be taking, getting some amount of levothyroxine into her system is better than none -continue Latuda but nighttime; not clear if this medication is helpful and patient has not been taking -Macrobid dc'd; hospitalist says no UTI Patient educated on: diagnosis and medical condition Informed Consent: understands and further education needed Reason for continued inpatient stay Substantial Risk for: rapid decompensation Time Spent With Patient Time: Total time managing care of this patient today ____ minutes.
[2023-04-17] MEDS: Acetaminophen 325 MG TABLET 975 MG PO (14:21)
[2023-04-17] MEDS: clonazePAM 0.5 MG TABLET PO ×2 (14:22→18:50)
[2023-04-17 18:00] VITALS: BP 113/57; PULSE 95; RESP 16; TEMP 36.4; O2SAT 97
[2023-04-17] MEDS: hydrOXYzine HCL 25 MG TABLET PO (18:50)
--- NOTE | 2023-04-17 19:04 | PM.EVENT ---
Event Note Date of Service: 04/17/23 Event Note: Addendum: Repeat EKG with shortened QTc of 407, initially read by computer as atrial flutter with 5-1 AV conduction, but appears to be sinus tachycardia with rate of 108. Order 1 dose of Reglan for now. If nausea and vomiting persist will consider alternative anti emetics such as Compazine 5 mg q.4. Follow-up for patient with recent fall with head strike on 04/13/2023. Patient fell backwards when exiting the shower, hitting her occipital scalp on the door. Patient did not fall to the floor or have loss of consciousness. CT of head on 04/14/2023 negative for intracranial pathology. Patient reporting continued, persistent nausea and vomiting. States she has vomited 14 time since last night and has been unable to eat or keep anything solid down. Also complains of headache, and earache bilaterally. Says her back hurts, her legs feel heavy, and has had confusion/mental fogginess. Some of patient's symptoms, especially nausea vomiting, have been ongoing prior to her arrival on the unit, though she states these have significantly worsened after her fall. Patient was diagnosed on 04/15 with likely mild concussion and patient has been resting in the isolation room. Currently she states her photophobia and phonophobia have improved. Patient's previous EKG showed a prolonged QTc of 585, and patient's Zofran has been stopped. Upon physical examination mild diffuse abdominal tenderness noted, abdomen soft, nondistended. No sign of head trauma: No lacerations, hematomas, sherwood sign, or raccoon eyes noted. Repeat CT of head on 04/17/2023 negative for acute intracranial hemorrhage or edematous territorial infarction. Will order new EKG Will get new labs: BMP, Mag, TSH Additional anti emetics will depend on EKG findings Time Spent With Patient Time: Total time managing care of this patient today ____ minutes.
[2023-04-17] MEDS: Melatonin 3 MG TABLET 6 MG PO (20:50)
[2023-04-17] MEDS: cloNIDine HCL 0.1 MG TABLET PO (20:50)
[2023-04-17] MEDS: Lurasidone HCl 20 MG TABLET PO (20:50)
[2023-04-17] MEDS: Levothyroxine Sodium 112 MCG TABLET PO (20:50)
[2023-04-17] MEDS: Lithium Carbonate ER 300 MG TABLET.ER 600 MG PO (20:50)
[2023-04-17] MEDS: Metoclopramide HCl 5 MG TABLET PO (22:07)
[2023-04-17 22:32] LABS: Blood Urea Nitrogen 25 mg/dL (9-16); Calcium 11.1 mg/dL (8.4-10.2); Carbon Dioxide 16 mmol/L (22-29); Chloride 95 mmol/L (96-108); Creatinine Clr Calc Pharmacy 25.9; Estimated Glomerular Filt Rate 21; Glucose Random 131 mg/dL (60-115); Magnesium 2.2 mg/dL (1.6-2.6); Potassium 2.2 mmol/L (3.3-5.1); Sodium 135 mmol/L (135-145)
[2023-04-17 22:40] LABS: Anion Gap 26 (12-20)
[2023-04-17 22:41] LABS: TSH reflex Free T4 19.55 uIU/mL (0.32-4.0)
--- NOTE | 2023-04-17 22:58 | PM.EVENT ---
Event Note Date of Service: 04/17/23 Event Note: Pt transfer to medical floor due to NYLA, intractable nausea. d/c order placed but pt not seen by this marine underwriter. Time Spent With Patient Time: Total time managing care of this patient today ____ minutes.
[2023-04-18 00:04] LABS: Free T4 (Free Thyroxine) 0.95 ng/dL (0.71-1.85)
--- NOTE | 2023-04-18 00:08 | PC.NURSE ---
Pt is alert and oriented x3, vital sign is stable, Pt had frequent vomiting, seen by hospitalist several times, critical lab received around 2230, wardsperson provider reji arias notified. order for abdominal ct scan and discharge/transfer to [facility] floor completed.
[2023-04-18 08:26] LABS: Influenza A PCR NEGATIVE (Negative); Influenza B PCR NEGATIVE (Negative); Resp Syncy Virus RNA Qual PCR NEGATIVE (Negative); SARS COV2 PCR INHOUSE NEGATIVE (Negative)
--- NOTE | 2023-04-20 09:10 | PM.PSYDC ---
DS: Providers Provider Date of Service: 04/17/23 Date of admission: 04/13/23 15:31 Date of discharge: 04/17/23 Primary care physician: Unknown Physician Attending physician on admission: Segun Chairez Consults: 04/13/23 10:58 Consult to Hospitalist Routine Comment: Consulting Provider: Hospitalist Reason For Exam: Fall, head trauma 04/16/23 17:45 Consult to Hospitalist Routine Comment: nausea before concussion but much worse now Consulting Provider: Hospitalist Reason For Exam: s/p concussion, still vomiting/dizzy b/l ear pain 04/17/23 15:10 Consult to Neurology Routine Consulting Provider: [facility] Reason for consultation: S/P Concussion, active sx present Has provider been notified: No Attending physician on discharge: Kimberly Huff DS: Diagnosis Discharge Diagnosis (1) Bipolar disorder: Status: Acute (2) PTSD (post-traumatic stress disorder): Status: Acute (3) Hypothyroidism: Status: Acute (4) Intellectual disability: Status: Suspected DS: Medications Discharge Medications Home Medications: Home Medications Medication Instructions Recorded Confirmed clonazepam 0.5 mg tablet 0.5 mg PO TID PRN Anxiety 04/10/23 04/18/23 clonidine HCl 0.1 mg tablet 0.1 mg PO TID 04/10/23 04/18/23 melatonin 5 mg tablet 10 mg PO BEDTIME 04/10/23 04/18/23 levothyroxine 112 mcg tablet 112 mcg PO DAILY 04/18/23 04/18/23 lurasidone 20 mg tablet (Latuda) 20 mg PO DAILY 04/18/23 04/18/23 thiamine HCl (vitamin B1) 100 mg 100 mg DAILY 04/18/23 04/18/23 tablet yeast ea PO 04/18/23 Previous Rx's Medication Instructions Recorded lithium carbonate 300 mg 600 mg (2 x 300 mg) PO BEDTIME #0 04/16/23 tablet,extended release tabs trazodone 50 mg tablet 150 mg (3 x 50 mg) PO BEDTIME PRN 04/16/23 Insomnia #0 tabs Mental Status Exam Mental Status Exam Narrative: Pt is alert and oriented; behavior tearful; regressed/child-like emotional responses; dressed in casual attire with unkempt hair and malodorous; mood is described as sick and affect congruent; eye contact appropriate; Speech is normal rate, volume and prosody and not pressured;no psychomotor retardation present; thought process is concrete but goal directed; Thought content is on felling sick; otherwise pertinent to relevant topics;no SI; no HI. There is no evidence of perceptual disturbance. Patients insight and judgment impaired but at baseline and adequate. Data Data Completed and Pending Completed studies during hospitalization [Text1]: 04/17/23 04/17/23 04/17/23 17:30 21:45 21:46 Sodium 135 Potassium 2.2 L* D Chloride 95 L Carbon Dioxide 16 L Anion Gap 26 H BUN 25 H Creatinine 2.39 H Estim Creat Clear Calc 25.9 Estimated GFR 21 Random Glucose 131 H Calcium 11.1 H D Magnesium 2.2 TSH 19.55 H Free T4 0.95 Influenza Type A (PCR) NEGATIVE Influenza Type B (PCR) NEGATIVE RSV RNA Qual (PCR) NEGATIVE SARS-CoV-2 RNA (RT-PCR) NEGATIVE Imaging Diagnostic Imaging Impressions Head CT 04/14/23 12:34 IMPRESSION: No evidence of calvarial fracture, intracranial hemorrhage or other acute intracranial pathology. Head CT 04/17/23 16:39 IMPRESSION: No evidence of acute intracranial hemorrhage or edematous territorial infarction. Abdomen/Pelvis CT 04/17/23 23:08 IMPRESSION: Nonobstructing bilateral renal calculi. Fibroid uterus. No acute intra-abdominal process identified. Fleischner guidelines were followed. DS: Summary Hospital Course Hospital Course: Pt is a 48 yo female with hx of bipolar disorder, ptsd, recently discharged from , who presents with depression and SI in face of non-adherence with medication. Pt lying in bed. She says things were ok for a little bit... She said she did not take her Latuda or the thyroid medication... When asked why, she said tearfully, i don't know.... She acknowledges that she got depressed and wanted to . Pt said she wants to discharge home now; she starts to cry when discussing the possible need to stay longer Hospital course: Patient tearful and depressed on admission however his suicidality was resolved. She again stop taking her medications in the morning time which included Latuda and levothyroxine. She has a very similar presentation to last admission and would only say I do not know to questions about medication. She was able to say that whenever she gets upset, she has thoughts to kill herself, she does not know why but this is a chronic issue. Patient's boyfriend came to family meeting and reported that she never actually said she wanted to kill herself but just that she wanted to with which patient agreed and added that she never had any active suicidality. Discussing situation, all agreed that patient does not take medications in the morning, she does not know why but would be willing to take them at bedtime since her boyfriend is there to help encourage her. Thus all medications to be scheduled at bedtime, including Latuda and levothyroxine (discussed with patient and her boyfriend about levothyroxine; both notes was to be taking in the morning, before food or other medications; however, all agreed that switching it to bedtime would better ensure that she is adherent and that some levothyroxine is better than none). Patient's depression improved and she wanted to go home signed a 3 day notice. Patient was not in imminent risk for harm to self or others and request for discharge was to be honored. However, patient remained due to concussion sustained on On the 1st day of admission when she hit her head from a fall in the shower; at that time, negative head CT but symptoms of concussion persisted; she was nauseous before admission however after concussions she developed intractable vomiting; repeat head CT also negative. Patient agreed to stay in the unit longer since to stabilize concussive symptoms. Due to vomiting, she became hypokalemic and developed NYLA and was transferred to medical floor. Time spent discussing smoking cessation with patient: 3 to 10 minutes Status at Discharge Functional status at discharge: independent ambulation Overall status at discharge: patient is back to baseline (psychiatrially) Time Spent with Patient Time attestation: Total time managing care of this patient today ____ minutes. Time spent: Less than 30 minutes Discharge Plan Discharge Anticipated Discharge Date/Time: 04/17/23 23:36 Patient Disposition: Xfer Other Discharge Diagnosis: Bipolar I, recurrent, severe, most recent episode depressed Referrals: Therapy Intake: Yuliana Ac ([facility]) [Other] - 04/24/23 10:00 am (Appointment is in person at the office ) Psychiatric Prescriber: Chu Arthur ([facility]) [Other] - 1 Week (Telehealth) Physician,Marcel J [Primary Care Provider] - 1 Week Discharge Medications: New trazodone 50 mg Tablet 150 mg PO BEDTIME PRN (Reason: Insomnia) Qty: 0 0RF lithium carbonate 300 mg Tablet Extended Release 600 mg PO BEDTIME Qty: 0 0RF Continued clonidine HCl 0.1 mg tablet 0.1 mg PO TID clonazepam 0.5 mg tablet 0.5 mg PO TID PRN (Reason: Anxiety) melatonin 5 mg tablet 10 mg PO BEDTIME Discontinued lithium carbonate 300 mg tablet extended release 300 mg PO BID trazodone 150 mg tablet 150 - 300 mg PO BEDTIME PRN (Reason: Insomnia) lurasidone 20 mg tablet 20 mg PO QAM levothyroxine 112 mcg tablet 112 mcg PO DAILY No Action yeast Powder PO levothyroxine 112 mcg tablet 112 mcg PO DAILY lurasidone [Latuda] 20 mg tablet 20 mg PO DAILY thiamine HCl (vitamin B1) 100 mg Tablet 100 mg DAILY Discharge Orders: Discharge Order (Routine); Ordered 04/17/23 Ordered By: Kimberly Huff Diet: Regular diet Activity on Discharge: As tolerated Stand Alone Forms: Patient Portal Discharge page, Community Support Care Plan Goals: transfer to medical floor Health Concerns: transfer to medical floor for hypokalemia, NYLA Plan of Treatment: transfer to medical floor Assessment: Risk assessment at time of discharge:? Patient was interviewed prior to discharge and found to be fully oriented and without any SI or HI. Patient has insight and demonstrates good judgment in terms of wanting to pursue treatment. Patient is not in imminent risk of harm to self or others and has a safety plan that includes presenting to the closest ER or calling 911 if feeling unsafe.? Patient has been observed closely by nursing and unit staff throughout admission; patient has not engaged in any behaviors that suggest dangerousness to self or others and has demonstrated appropriate behaviors and impulse control Discharge Date/Time: 04/17/23 23:42
== END 2023-04-17 23:42 | disposition other institution (70) | DRG 753 ==
LOC: HO.ED 04-11 19:38 → HO.PM5 04-13 15:34
PROVIDERS: Clinical Nurse Specialist Psychiatric/Mental Health, Adult; Emergency Medicine; Physician Assistant; Student in an Organized Health Care Education/Training Program; Admitting Provider Psychiatry & Neurology Psychiatry; Emergency Provider Emergency Medicine Emergency Medical Services; Visit Provider Psychiatry & Neurology Psychiatry
DX: F31.4 Bipolar disorder, current episode depressed, severe, without psychotic features (principal); R45.851 Suicidal ideations; S06.0X0A Concussion without loss of consciousness, initial encounter; W18.2XXA Fall in (into) shower or empty bathtub, initial encounter; E03.9 Hypothyroidism, unspecified; F43.10 Post-traumatic stress disorder, unspecified; Z23 Encounter for immunization; Z20.822 Contact with and (suspected) exposure to COVID-19; Z79.890 Hormone replacement therapy; Z79.899 Other long term (current) drug therapy
CPT/HCPCS: 0241U; 36415; 70450; 74176; 80048; 80053; 80143; 80178; 80179; 80307; 81001; 81025; 83690; 83735; 84439; 84443; 85025; 87635; 90686; 93005; 99285; S9485

== ENCOUNTER → 2023-04-13 15:31 | Outpatient (BNV) | payer OTHER, SELFPAY | PROVIDERS: Admitting Provider Psychiatry & Neurology Psychiatry; Emergency Provider Emergency Medicine Emergency Medical Services; Visit Provider Psychiatry & Neurology Psychiatry | DX: F31.4 Bipolar disorder, current episode depressed, severe, without psychotic features (principal); F43.11 Post-traumatic stress disorder, acute; F79 Unspecified intellectual disabilities; E03.9 Hypothyroidism, unspecified | CPT/HCPCS: 90792; 99231; 99232; 99238; 99499 ==

== ENCOUNTER 2023-04-17 23:01 | Inpatient (IN) | payer OTHER, SELFPAY ==
--- NOTE | 2023-04-17 23:08 | PM.IMHP ---
History of Present Illness Date of Service: 04/17/23 Attending physician on admission: Toan Green Chief Complaint: Intractable nausea and vomiting Pt is a 48-year-old female with a PMH significant for?hypothyroidism, depression, anxiety, PTSD, and bipolar disorder who presented to the ED?on 04/10/2023 with SI with vague plan and was admitted to Psychiatry. Pt had recent fall with head strike on 04/13/2023. Patient fell backwards when exiting the shower, hitting her occipital scalp on the door. Patient did not fall to the floor or have loss of consciousness. CT of head on 04/14/2023 negative for intracranial pathology. Patient reporting continued, persistent nausea and vomiting. States she has vomited 14 time since last night and has been unable to eat or keep anything solid down. Also complains of headache, and earache bilaterally. Says her back hurts, her legs feel heavy, and has had confusion/mental fogginess. Some of patient's symptoms, especially nausea vomiting, have been ongoing prior to her arrival on the unit, though she states these have significantly worsened after her fall. Patient was diagnosed on 04/15 with likely mild concussion and patient has been resting in the isolation room. Currently she states her photophobia and phonophobia have improved. Patient's previous EKG showed a prolonged QTc of 585, and patient's Zofran has been stopped. Upon physical examination mild diffuse abdominal tenderness noted, abdomen soft, nondistended. No sign of head trauma: No lacerations, hematomas, sherwood sign, or raccoon eyes noted. Repeat CT of head on 04/17/2023 negative for acute intracranial hemorrhage or edematous territorial infarction. Repeat EKG showed shortened QTc of 407, initially read by computer as atrial flutter with 5-1 AV conduction, but appears to be sinus tachycardia with rate of 108. Pt was given 1 dose of Reglan and new labs were ordered. Repeat BMP showed critical potassium of 2.2, BUN elevated 25, and creatinine 2.39 (elevated from baseline of 0.90). Patient will be transferred from Psychiatry to the medical floor for hypokalemia, NYLA, and intractable nausea and vomiting. Review of Systems Review of Systems: Nausea, vomiting Confusion, mental fogginess Dizziness Headache bilateral earaches Yes all other systems are reviewed and are negative PMFSH Medical History (Updated 04/17/23 @ 23:22 by FELICITA Myers) Intellectual disability PTSD (post-traumatic stress disorder) Anxiety Hypothyroidism Depression Social History Household Members: None Housing: House Do you presently have visiting nurse or other home services: No Patient Tobacco Use Status: Never used Tobacco Substance Use Type: Marijuana service: No Sexual orientation: Straight/Heterosexual Meds Allergies Allergy/AdvReac Type Severity Reaction Status Date / Time methotrexate Allergy Rash Verified 03/22/23 20:54 warfarin [From Coumadin] Allergy Rash Verified 03/22/23 20:54 Active Medications: Current Medications Docusate Sodium (Docusate Sodium 100 Mg Capsule) 100 mg PO DAILY PRN PRN Reason: Constipation Enoxaparin Sodium (Enoxaparin Sodium 30 Mg/0.3 Ml Syringe) 30 mg SUBCUT Q24H [facility] Potassium Chloride (Potassium Chloride/H20) 10 meq in 100 mls @ 100 mls/hr IV Q1H [facility] Stop: 04/18/23 03:14 Metoclopramide HCl (Metoclopramide Hcl 10 Mg/2 Ml Vial) 5 mg IVPUSH Q6H PRN PRN Reason: Nausea and Vomiting Sodium Chloride (0.9 % Sodium Chloride Flush 3 Ml Syringe) 3 ml IVFLUSH QSHIFT [facility] Home Medications Medication Instructions Recorded Confirmed Last Taken Type clonazepam 0.5 mg tablet 0.5 mg PO TID PRN Anxiety 04/10/23 04/10/23 Unknown History clonidine HCl 0.1 mg tablet 0.1 mg PO TID 04/10/23 04/10/23 Unknown History levothyroxine 112 mcg tablet 112 mcg PO DAILY 04/10/23 04/10/23 Unknown History lithium carbonate 300 mg 300 mg PO BID 04/10/23 04/10/23 Unknown History tablet,extended release lurasidone 20 mg tablet 20 mg PO QAM 04/10/23 04/10/23 Unknown History melatonin 5 mg tablet 5 mg PO BEDTIME 04/10/23 04/10/23 Unknown History trazodone 150 mg tablet 150 - 300 mg PO BEDTIME PRN 04/10/23 04/10/23 Unknown History Insomnia Physical Exam Vital Signs and Narrative: Vital Signs: General: AOx3, uncomfortable, no acute distress, pt unkempt Resp: CTA bilaterally CVS: S1, S2, RRR GI: +BS, no distention, diffuse tenderness Skin: No rash Neuro: Cranial nerves II-XII grossly intact bilaterally. Motor grossly intact bilaterally Extremities: No edema Assessment and Plan (1) Hypothyroidism: Status: Acute (2) NYLA (acute kidney injury): Status: Acute (3) Hypokalemia: Status: Acute (4) Intractable nausea and vomiting: Status: Acute Plan Pt is a 48-year-old female with a PMH significant for?hypothyroidism, depression, anxiety, PTSD, and bipolar disorder who presented to the ED?on 04/10/2023 with SI with vague plan and was admitted to Psychiatry. Pt had recent fall with head strike on 04/13/2023. Patient has since had intractable nausea and vomiting Intractable nausea and vomiting Etiology unclear: Has been experiencing symptoms for at least 14 days, though much worse after fall with head strike on 04/13/2023 Patient had limited efficacy with Zofran Will give Reglan for now Will place on IVF: Lactated Ringer's CT of abdomen and pelvis pending Will consider GI consult if symptoms persist Patient be placed on clear liquid diet, advance as tolerated NYLA Creatinine 2.59, elevated from baseline of 0.90 Likely secondary to intractable nausea and vomiting, reduced p.o. intake Treat as above Follow BMP Hypokalemia Potassium 2.2 Likely secondary to intractable nausea and vomiting, reduced p.o. intake Will supplement with IV potassium Follow BMP Hypothyroidism Patient's TSH > 100 on 04/10/2023, now down to 19.55 Recently started on levothyroxine 112 mcg Free T4 pending Mood disorder Continue lithium ER 600 mg q.h.s. Continue Latuda Clonazepam, clonidine p.r.n. Full Code Attending:?Dr. Green DVT Prophylaxis: Lovenox Pt will require a hospitalization of at least two nights for treatment of hypokalemia with IV potassium, NYLA with IVF, and intractable nausea and vomiting with IV anti emetics and specialist consult. Time Spent With Patient Time: Total time managing care of this patient today ____ minutes. Quality Stroke Does the patient have a stroke diagnosis?: No VTE Prior VTE?: No VTE Risk Level:: Medical - moderate - high VTE Device Contraindication: Treatment Not Indicated VTE Drug Contraindication: N/A - Med Ordered
[2023-04-17 23:48] VITALS: BP 123/60; PULSE 102; RESP 17; TEMP 37.2; O2SAT 92
--- OUTSIDE RECORDS SUMMARY | 2023-04-17 23:52 | XMS_ITS | Continuity of Care Document ---
Author Name Unknown Organization [facility] ter Address [address] [place] [id number]- Care Team Providers Care Photocopy Operator Name Role Phone Bambi GUADARRAMA, Jazzy García Primary Care Physician Encounter [facility] Date(s): 12/22/21 - 01/01/[address] [address]- Discharge Disposition: Transfer to [facility] Facility Attending Physician: Nura Ramírez MD Admitting Physician: Nura Ramírez MD Referring Physician: Not on Staff, Referring MD Allergies, Adverse Reactions, Alerts Substance Reaction Severity Status methotrexate itch Active Coumadin itch,Headache Active Immunizations Given and Recorded Vaccine Date Status Refusal Reason influenza virus vaccine, inactivated 09/05/21 Give n influenza virus vaccine, inactivated 05/06/18 Give n Medications cholecalciferol 2000 intl units oral capsule 1 capsule = 50 mcg, By Mouth, Daily, # 30 capsule, 0 Refills, Maintenance, 12/19/21 10:36:00 EDT, Capsule, [facility], Partial fill upon patient request if the prescription is for aschedule II opioid drug., 160, cm, 12/19/21 10:11:00 ED... Start Date: 12/19/21 Status: Ordered levothyroxine 150 mcg (0.15 mg) oral tablet 1 tablet = 150 mcg, By Mouth, Daily, # 30 tablet, 0 Refills, Maintenance, 12/19/21 10:36:00 EDT, Tablet, [facility], Partial fill upon patient request if the prescription is for a schedule II opioid drug., 160, cm, 12/19/21 10:11:00 EDT,... Start Date: 12/19/21 Status: Ordered LORazepam 0.5 mg oral tablet See Instructions, 1 tablet By Mouth 2 times a day for 14 days, then 1 tablet daily for 14 days thenstop, # 42 tablet, 0 Refills, Maintenance, 12/19/21 10:37:00 EDT, Tablet, [facility], Partial fill upon patient request if the prescripti... Start Date: 12/19/21 Status: Ordered mirtazapine 15 mg oral tablet 1 tablet = 15 mg, By Mouth, Daily at bedtime, # 30 tablet, 0 Refills, Maintenance, 12/19/21 10:36:00 EDT, Tablet, [facility], Partial fill upon patient request if the prescription is for a schedule II opioid drug., 160, cm, 12/19/21 10:1... Start Date: 12/19/21 Status: Ordered multivitamin with minerals Multiple Vitamins with Minerals oral capsule 1 tablet, By Mouth, Daily, # 30 tablet, 0 Refills, Maintenance, 12/19/21 10:36:00 EDT, Capsule, [facility], Partial fill upon patient request if the prescription is for a schedule II opioid drug., 1 tablet By Mouth Daily, 160, cm, ... Start Date: 12/19/21 Status: Ordered thiamine 100 mg oral tablet 100 mg, 1, tablet, By Mouth, Daily, # 30 tablet, Refills 0, Tot. Refills 0, Maintenance, 12/19/21 10:37:00 EDT, Route to Pharmacy Electronically, [facility], Partial fill upon patient request if the prescription is for a schedule II opio... Start Date: 12/19/21 Status: Ordered traZODone 50 mg oral tablet 50 mg, 1, tablet, By Mouth, Daily at bedtime, # 30 tablet, Refills 0, Tot. Refills 0, Maintenance, 12/19/21 10:37:00 EDT, Route to Pharmacy Electronically, [facility], Partial fill upon patient request if the prescription is for a schedu... Start Date: 12/19/21 Status: Ordered ZyPREXA 15 mg oral tablet 1 tablet = 15 mg, By Mouth, Daily, # 30 tablet, 0 Refills, Maintenance, 12/19/21 10:37:00 EDT, Tablet, [facility], Partial fill upon patient request if the prescription is for a schedule II opioid drug., 160, cm, 12/19/21 10:11:00 EDT, H... Start Date: 12/19/21 Status: Ordered Problem List Condition Effective Dates Status Health Status Inform ant Myalgia(Confirmed) Active MDD (major depressive disord er), recurrent, with catatonic features(Confirmed) Active SI joint arthritis(Confirmed) Active Vital Signs Most recent to oldest [Reference Range]: 1 2 3 Oxygen Saturation [94-100 %] 98 % (01/01/22 6:35 AM) 100 % (12/31/21 10:06 PM) 100 % (12/31/21 6:54 AM) Pulse Rate [55-90 bpm] 89 bpm (01/01/22 6:35 AM) 93 bpm *H* (12/31/21 10:06 PM) 91 bpm *H* (12/31/21 6:54 AM) Blood Pressure [90-138/55-84 mm Hg] 95/66mm Hg (01/01/22 6:35 AM) 121/79mm Hg (12/31/21 10:06 PM) 99/68mm Hg (12/31/21 6:54 AM) Respiratory Rate [16-30 br/min] 17 br/min (01/01/22 6:35 AM) 18 br/min (12/31/21 10:06 PM) 18 br/min (12/31/21 6:54 AM) Temperature [96.8-100.4 DegF] 98.0 DegF (01/01/22 6:35 AM) 98 DegF (12/31/21 10:06 PM) 97.3 DegF (12/31/21 6:54 AM) Mode of Delivery (Oxygen) Room air (01/01/22 6:35 AM) Room air (12/31/21 10:06 PM) Room air (12/31/21 6:54 AM) Blood pressure sites Arm, right (01/01/22 6:35 AM) Arm, right (12/31/21 10:06 PM) Arm, right (12/31/21 6:54 AM) Temperature Route Oral (01/01/22 6:35 AM) Oral (12/31/21 10:06 PM) Oral (12/31/21 6:54 AM) Social History Social History Type Response Smoking Status Never (less than 100 in lifetime); Other: patient denies; entered on: 12/13/21 Sex
--- OUTSIDE RECORDS SUMMARY | 2023-04-17 23:53 | XMS_ITS | Continuity of Care Document ---
Author Name Unknown Organization [facility] ter Address [address] [place] [phone]- Care Team Providers Care Graphic Coordinator Name Role Phone Bambi GUADARRAMA, Jazzy D Primary Care Physician Encounter [facility] Date(s): 12/01/21 - 12/13/[address] [address]- Discharge Disposition: Transfer to [facility] Attending Physician: Avila GUADARRAMA, Twin Matthew Admitting Physician: Reynaldo Dumas MD Referring Physician: Not on Staff, Referring [...] Daily, # 30 capsule, 0 Refills, Maintenance, 10/07/21 15:29:00 EST, Capsule, [facility], Partial fill upon patient request if the prescription is for aschedule II opioid drug., 160, cm, 10/06/21 20:31:00 ES... Start Date: 10/07/21 Status: Ordered gabapentin 300 mg oral capsule 300 mg, Capsule, By Mouth, 12/13/21 9:00:00 EDT Start Date: 12/13/21 Stop Date: 12/13/21 Status: Completed gabapentin 300 mg oral capsule 300 mg, 1, capsule, By Mouth, 3 times a day, # 90 capsule, Refills 0, Tot. Refills 0, Maintenance, 10/07/21 15:29:00 EST, Route to Pharmacy Electronically, [facility], Partial fill upon patient request if the prescription is for a schedu... Start Date: 10/07/21 Status: Ordered levothyroxine 150 mcg (0.15 mg) oral tablet = 150 mcg, By Mouth, Daily, 0 Refills, Maintenance, 12/13/21 12:28:00 EDT, Tablet, Partial fill upon patient request if the prescription is for a schedule II opioid drug. Start Date: 12/13/21 Status: Ordered LORazepam 0.5 mg oral tablet 1 tablet = 0.5 mg, By Mouth, Every 6 hours, 0 Refills, Maintenance, 12/13/21 12:29:00 EDT, Tablet, Partial fill upon patient request if the prescription is for a schedule II opioid drug. Start Date: 12/13/21 Status: Ordered mirtazapine 15 mg oral tablet 0.5 tablet = 7.5 mg, By Mouth, Daily at bedtime, # 15 tablet, 0 Refills, Maintenance, 10/07/21 15:29:00 EST, Tablet, [facility], Partial fill upon patient request if the prescription is for a schedule II opioid drug., 160, cm, 10/06/21 2... Start Date: 10/07/21 Status: Ordered Multivit Therapeutic/Minerals Tablet 1 tablet, By Mouth, Daily, 0 Refills, Maintenance, 12/13/21 12:29:00 EDT, Tablet, Partial fill uponpatient request if the prescription is for a schedule II opioid drug. Start Date: 12/13/21 Status: Ordered thiamine 100 mg oral tablet 100 mg, 1, tablet, By Mouth, Daily, # 30 tablet, Refills 0, Tot. Refills 0, Maintenance, 10/07/21 15:29:00 EST, Route to Pharmacy Electronically, [facility], Partial fill upon patient request if the prescription is for a schedule II opio... Start Date: 10/07/21 Status: Ordered traZODone 50 mg oral tablet 50 mg, 1, tablet, By Mouth, Daily at bedtime, # 30 tablet, Refills 0, Tot. Refills 0, Maintenance, 10/07/21 15:29:00 EST, Route to Pharmacy Electronically, [facility], Partial fill upon patient request if the prescription is for a schedu... Start Date: 10/07/21 Status: Ordered Problem List Condition Effective Dates Status Health Status Inform ant Myalgia(Confirmed) Active MDD (major depressive disord er), recurrent, with catatonic features(Confirmed) Active SI joint arthritis(Confirmed) Active Vital Signs Most recent to oldest [Reference Range]: 1 2 3 Height 160 cm (12/13/21 1:02 PM) 160 cm (12/13/21 5:30 AM) 160 cm (12/12/21 10:00 PM) Weight 44.8 kg (12/03/21 12:03 AM) Oxygen Saturation [94-100 %] 99 % (12/13/21 1:02 PM) 98 % (12/13/21 5:30 AM) 97 % (12/12/21 10:00 PM) Pulse Rate [55-90 bpm] 81 bpm (12/13/21 1:02 PM) 79 bpm (12/13/21 5:30 AM) 85 bpm (12/12/21 10:00 PM) Body Mass Index [18.5-24.99] 17.5 *L* (12/03/21 12:03 AM) Blood Pressure [90-138/55-84 mm Hg] 115/73mm Hg (12/13/21 1:02 PM) 106/72mm Hg (12/13/21 5:30 AM) 111/76mm Hg (12/12/21 10:00 PM) Respiratory Rate [16-30 br/min] 18 br/min (12/13/21 1:02 PM) 18 br/min (12/13/21 10:37 AM) 20 br/min (12/13/21 9:37 AM) Temperature [96.8-100.4 DegF] 98.6 DegF (12/13/21 1:02 PM) 97.3 DegF (12/13/21 5:30 AM) 98.4 DegF (12/12/21 10:00 PM) Mode of Delivery (Oxygen) Room air (12/13/21 1:02 PM) Room air (12/13/21 5:30 AM) Room air (12/12/21 10:00 PM) Blood pressure sites Arm, left (12/13/21 1:02 PM) Arm, right (12/13/21 5:30 AM) Arm, right (12/12/21 10:00 PM) Temperature Route Oral (12/13/21 1:02 PM) Oral (12/13/21 5:30 AM) Oral (12/12/21 10:00 PM) Dry Weight 46.4 kg (12/13/21 1:31 PM) 98 kg (12/03/21 12:03 AM) Weight Obtained Via Bed scale (12/03/21 12:03 AM) Dry Weight Obtained Via Bed scale (12/13/21 1:31 PM) Patient/family stated (12/03/21 12:03 AM) Social History Social History Type Response Smoking Status Never (less than 100 in lifetime); Other: patient denies; entered on: 12/13/21 Sex
--- OUTSIDE RECORDS SUMMARY | 2023-04-17 23:53 | XMS_ITS | Continuity of Care Document ---
Author Name Unknown Organization [facility] Address [address] [place] [phone]- Care Team Providers Care Tug Master Name Role Phone Bambi GUADARRAMA, Jazzy Ricky Primary Care Physician Encounter [id number] Date(s): 08/16/19 - 08/26/19 [facility] [address] [place] [address]- [facility] Attending Physician: Alisson Looney Admitting Physician: AdmAlisson lundy Referring Physician: Admtr Ar8 Allergies, Adverse Reactions, Alerts Substance Reaction Severity Status methotrexate itch Active Coumadin itch,Headache Active Immunizations Given and Recorded Vaccine Date Status Refusal Reason influenza virus vaccine, inactivated 05/06/18 Give n Medications aspirin 81 mg oral tablet 1 tablet = 81 mg, By Mouth, Daily, 0 Refills, Maintenance, 12/21/18 14:49:43 EDT Start Date: 12/21/18 Status: Ordered cyanocobalamin 1000 mcg/ml injectable solution 0 Refills, Maintenance, 10/12/18 13:11:55 EDT Start Date: 10/12/18 Status: Ordered Ferrous Sulfate EC Refills 0, Maintenance, 12/21/18 14:49:30 EDT Start Date: 12/21/18 Status: Ordered Functional Capacity Evaluation Functional Capacity Evaluation, See Instructions, # 1 application, Refills 0, Tot. Refills 0, Maintenance, FCE: dx: low back pain, 10/12/18 14:04:18 EDT, Compound Start Date: 10/12/18 Status: Ordered Synthroid 0.025 mg oral tablet = 25 mcg, By Mouth, Daily, # 30 tablet, 0 Refills, Maintenance, 05/06/18 15:03:48 EDT, Tablet Start Date: 05/06/18 Stop Date: 06/05/18 Status: Ordered Valium 5 mg oral tablet See Instructions, 1 tab PO 1 hr. prior to procedure, May repeat x 1, # 2 tablet, Refills 0, Tot. Refills 0, Maintenance, 06/02/19 16:32:00 EDT, Instructions Replace Required Details, Route to Pharmacy Electronically, [id number]... Start Date: 06/02/19 Status: Ordered Problem List Condition Effective Dates Status Health Status Inform ant Myalgia(Confirmed) Active SI joint arthritis(Confirmed) Active Social History Social History Type Response Smoking Status Never (less than 100 in lifetime) entered on: 10/12/18 Sex
--- OUTSIDE RECORDS SUMMARY | 2023-04-17 23:53 | XMS_ITS | Continuity of Care Document ---
Author Name Unknown Organization [facility] ter Address [address] [place] [address]- Care Team Providers Care Visual Lead Name Role Phone Bambi GUADARRAMA, Jazzy García Primary Care Physician [phone] Encounter [facility] Date(s): 12/21/21 - 12/22/[address] [address]- Discharge Disposition: [facility] Attending Physician: Paloma Mayes MD Admitting Physician: Paloma Mayes MD Referring Physician: Not on Staff, Referring MD Allergies, Adverse Reactions, Alerts Substance Reaction Severity Status methotrexate itch Active Coumadin itch,Headache Active Immunizations Given and Recorded Vaccine Date Status Refusal Reason influenza virus vaccine, inactivated 09/05/21 Give n influenza virus vaccine, inactivated 05/06/18 Give n Medications Acetaminophen Tablet 650 mg, Tablet, By Mouth, Every 8 hours, PRN for Pain , Moderate, STAT, 12/21/21 7:17:00 EDT Start Date: 12/21/21 Stop Date: 12/23/21 Status: Discontinued cholecalciferol 2000 intl units oral capsule 1 [...] Range]: 1 2 3 Height 160 cm (12/21/21 7:57 PM) 160 cm (12/21/21 5:07 PM) 160 cm (12/21/21 2:52 PM) Weight 50.8 kg (12/21/21 5:07 PM) 50 kg (12/21/21 2:52 PM) 50 kg (12/21/21 12:40 AM) Oxygen Saturation [94-100 %] 97 % (12/21/21 7:57 PM) 98 % (12/21/21 5:07 PM) 98 % (12/21/21 2:52 PM) Pulse Rate [55-90 bpm] 98 bpm *H* (12/21/21 7:57 PM) 79 bpm (12/21/21 5:07 PM) 77 bpm (12/21/21 2:52 PM) Body Mass Index [18.5-24.99] 19.84 (12/21/21 5:07 PM) 19.53 (12/21/21 2:52 PM) Blood Pressure [90-138/55-84 mm Hg] 130/81mm Hg (12/21/21 7:57 PM) 122/78mm Hg (12/21/21 5:07 PM) 113/73mm Hg (12/21/21 2:52 PM) Respiratory Rate [16-30 br/min] 18 br/min (12/21/21 8:26 PM) 14 br/min *L* (12/21/21 7:57 PM) 18 br/min (12/21/21 5:07 PM) Temperature [96.8-100.4 DegF] 97.1 DegF (5/21/22 7:57 PM) 98.1 DegF (12/21/21 5:07 PM) 98.3 DegF (12/21/21 2:52 PM) Mode of Delivery (Oxygen) Room air (12/21/21 7:57 PM) Room air (12/21/21 5:07 PM) Room air (12/21/21 2:52 PM) Blood pressure sites Arm, right (12/21/21 7:57 PM) Arm, right (12/21/21 5:07 PM) Arm, right (12/21/21 2:52 PM) Temperature Route Temporal (12/21/21 7:57 PM) Temporal (12/21/21 5:07 PM) Oral (12/21/21 2:52 PM) Dry Weight 50.8 kg (12/21/21 5:07 PM) 50 kg (12/21/21 2:52 PM) 50 kg (12/21/21 12:40 AM) Weight Obtained Via Patient/family state d (12/21/21 12:40 AM) Dry Weight Obtained Via Patient/family s tated (12/21/21 12:40 AM) Social History Social History Type Response Smoking Status Never (less than 100 in lifetime); Other: patient denies; entered on: 12/13/21 Sex
--- OUTSIDE RECORDS SUMMARY | 2023-04-17 23:53 | XMS_ITS | Continuity of Care Document ---
Author Name Unknown Organization [facility] Address [address] [place] [phone]- Care Team Providers Care Sap Bpc Developer Name Role Phone Bambi GUADARRAMA, Jazzy Ricky Primary Care Physician [phone] Encounter [facility] Date(s): 10/07/19 - 10/17/19 [facility] [address] [place] [address]- [facility] Attending Physician: Alisson Looney Admitting Physician: AdmAlisson lundy Referring Physician: AdmtrAlisson Allergies, Adverse Reactions, Alerts Substance Reaction Severity [...] Replace Required Details, Route to Pharmacy Electronically, [id number]... Start Date: 06/02/19 Status: Ordered Problem List Condition Effective Dates Status Health Status Inform ant Myalgia(Confirmed) Active SI joint arthritis(Confirmed) Active Social History Social History Type Response Smoking Status Never (less than 100 in lifetime) entered on: 10/12/18 Sex
--- OUTSIDE RECORDS SUMMARY | 2023-04-17 23:53 | XMS_ITS | Continuity of Care Document ---
Author Name Unknown Organization [facility] ter Address [address] [place] [address]- Care Team Providers Care Police Magistrate Name Role Phone Bambi GUADARRAMA, Jazzy Ricky Primary Care Physician Encounter [facility] Date(s): 09/27/21 - 10/30/[address] [address] Attending Physician: Walter Sanchez MD Admitting Physician: Laura GUADARRAMA, Walter Layton Referring Physician: Laura GUADARRAMA, Walter Layton Allergies, Adverse Reactions, Alerts Substance Reaction Severity [...] schedu... Start Date: 10/07/21 Status: Ordered levothyroxine 0.1 mg oral tablet 1 tablet = 100 mcg, By Mouth, Daily, # 30 tablet, 0 Refills, Maintenance, 10/07/21 15:29:00 EST, Tablet, [facility], Partial fill upon patient request if the prescription is for a schedule II opioid drug., 160, cm, 10/06/21 20:31:00 EST,... Start Date: 10/07/21 Status: Ordered mirtazapine 15 mg oral tablet 0.5 tablet = 7.5 mg, By Mouth, Daily at bedtime, # 15 tablet, 0 Refills, Maintenance, 10/07/21 15:29:00 EST, Tablet, [facility], Partial fill upon patient request if the prescription is for a schedule II opioid drug., 160, cm, 10/06/21 2... Start Date: 10/07/21 Status: Ordered thiamine 100 mg oral tablet [...] catatonic features(Confirmed) Active SI joint arthritis(Confirmed) Active Social History Social History Type Response Smoking Status Never (less than 100 in lifetime) entered on: 10/12/18 Sex
--- OUTSIDE RECORDS SUMMARY | 2023-04-17 23:53 | XMS_ITS | Continuity of Care Document ---
Author Name Unknown Organization [facility] ter Address [address] [place] [phone]- Care Team Providers Care Coding Analyst Name Role Phone Bambi GUADARRAMA, Jazzy García Primary Care Physician Encounter [facility] Date(s): 01/18/22 - 01/28/[address] [address]- Encounter Diagnosis Suicidal ideation(Final) - 01/18/22 Discharge Disposition: A-D/C Home Attending Physician: Segun Moore MD Admitting Physician: Segun Moore MD Referring Physician: Not on Staff, Referring [...] 10:11:00 EDT,... Start Date: 12/19/21 Status: Ordered levothyroxine 150 mcg (0.15 mg) oral tablet 1 tablet = 150 mcg, By Mouth, Daily, # 30 tablet, 0 Refills, Maintenance, 01/18/22 21:16:00 EDT, Tablet, Partial fill upon patient request if the prescription is for a schedule II opioid drug. Start Date: 01/18/22 Status: Ordered lithium 300 mg oral capsule 1 capsule = 300 mg, By Mouth, 2 times a day, 0 Refills, Maintenance, 01/18/22 21:16:00 EDT, Capsule, Partial fill upon patient request if the prescription is for a schedule II opioid drug. Start Date: 01/18/22 Status: Ordered LORazepam 0.5 mg oral tablet See Instructions, 1 tablet By Mouth 2 times a day for 14 days, then 1 tablet daily for 14 days thenstop, # 42 tablet, 0 Refills, Maintenance, 12/19/21 10:37:00 EDT, Tablet, [facility], Partial fill upon patient request if the prescripti... Start Date: 12/19/21 Status: Ordered LORazepam 1 mg oral tablet 0 Refills, Maintenance, 01/18/22 21:16:00 EDT, Partial fill upon patient request if the prescription is for a schedule II opioid drug. Start Date: 01/18/22 Status: Ordered Melatonin 3 mg oral tablet 1 tablet = 3 mg, By Mouth, Daily at bedtime, PRN for insomnia, # 60 tablet, 0 Refills, Maintenance,01/18/22 21:16:00 EDT, Tablet, Partial fill upon patient request if the prescription is for a schedule II opioid drug. Start Date: 01/18/22 Status: Ordered mirtazapine 15 mg oral tablet 1 tablet = 15 mg, By Mouth, Daily at bedtime, # 30 tablet, 0 Refills, Maintenance, 12/19/21 10:36:00 EDT, Tablet, [facility], Partial fill upon patient request if the prescription is for a schedule II opioid drug., 160, cm, 12/19/21 10:1... Start Date: 12/19/21 Status: Ordered mirtazapine 15 mg oral tablet 1 tablet = 15 mg, By Mouth, Daily at bedtime, # 30 capsule, 0 Refills, Maintenance, 01/18/22 21:17:00 EDT, Partial fill upon patient request if the prescription is for a schedule II opioid drug. Start Date: 01/18/22 Stop Date: 02/17/22 Status: Ordered MULTIVITAMIN ADULT (MINERALS TABS Maintenance, 01/18/22 21:17:00 EDT, Supply Start Date: 01/18/22 Status: Ordered multivitamin with minerals Multiple Vitamins with Minerals oral capsule 1 tablet, By Mouth, Daily, # 30 tablet, 0 Refills, Maintenance, 12/19/21 10:36:00 EDT, Capsule, [facility], Partial fill upon patient request if the prescription is for a schedule II opioid drug., 1 tablet By Mouth Daily, 160, cm, ... Start Date: 12/19/21 Status: Ordered olanzapine 20 mg oral tablet 1 tablet = 20 mg, By Mouth, Daily at bedtime, # 30 capsule, 0 Refills, Maintenance, 01/18/22 21:17:00 EDT, Partial fill upon patient request if the prescription is for a schedule II opioid drug. Start Date: 01/18/22 Stop Date: 02/17/22 Status: Ordered thiamine 100 mg oral tablet 100 mg, 1, tablet, By Mouth, Daily, # 30 tablet, Refills 0, Tot. Refills 0, Maintenance, 12/19/21 10:37:00 EDT, Route to Pharmacy Electronically, [facility], Partial fill upon patient request if the prescription is for a schedule II opio... Start Date: 12/19/21 Status: Ordered traZODone 100 mg oral tablet 100 mg, 1, tablet, By Mouth, Daily at bedtime, # 30 capsule, Refills 0, Maintenance, 01/18/22 21:17:00 EDT, Partial fill upon patient request if the prescription is for a schedule II opioid drug. Start Date: 01/18/22 Stop Date: 02/17/22 Status: Ordered traZODone 50 mg oral tablet 50 mg, 1, tablet, By Mouth, Daily at bedtime, # 30 tablet, Refills 0, Tot. Refills 0, Maintenance, 12/19/21 10:37:00 EDT, Route to Pharmacy Electronically, [facility], Partial fill upon patient request if the prescription is for a schedu... Start Date: 12/19/21 Status: Ordered Vitamin B1 100 mg oral tablet TAKE ONE TABLET BY MOUTH EVERY DAY Start Date: 01/18/22 Status: Ordered Vitamin D3 oral tablet TAKE FIVE TABLETS BY MOUTH EVERY DAY Start Date: 01/18/22 Status: Ordered ZyPREXA 15 mg oral tablet [...] 3 Oxygen Saturation [94-100 %] 98 % (01/28/22 3:32 PM) 99 % (01/28/22 6:34 AM) 100 % (01/27/22 11:40 PM) Pulse Rate [55-90 bpm] 119 bpm *H* (01/28/22 3:32 PM) 93 bpm *H* (01/28/22 6:34 AM) 88 bpm (01/27/22 11:40 PM) Blood Pressure [90-138/55-84 mm Hg] 115/75mm Hg (01/28/22 3:32 PM) 99/67mm Hg (01/28/22 6:34 AM) 116/76mm Hg (01/27/22 11:40 PM) Respiratory Rate [16-30 br/min] 19 br/min (01/28/22 3:32 PM) 18 br/min (01/28/22 6:34 AM) 18 br/min (01/27/22 11:40 PM) Temperature [96.8-100.4 DegF] 98.2 DegF (01/28/22 3:32 PM) 97.5 DegF (01/28/22 6:34 AM) 98.3 DegF (01/27/22 9:42 PM) Mode of Delivery (Oxygen) Room air (01/28/22 3:32 PM) Room air (01/28/22 6:34 AM) Room air (01/27/22 11:40 PM) Blood pressure sites Arm, right (01/28/22 3:32 PM) Arm, right (01/28/22 6:34 AM) Arm, right (01/27/22 11:40 PM) Temperature Route Oral (01/28/22 3:32 PM) Oral (01/28/22 6:34 AM) Oral (01/27/22 9:42 PM) Social History Social History Type Response Smoking Status Never (less than 100 in lifetime); Other: patient denies; entered on: 12/13/21 Sex
--- OUTSIDE RECORDS SUMMARY | 2023-04-17 23:53 | XMS_ITS | Continuity of Care Document ---
Author Name Unknown Organization [facility] ter Address [address] [place] [address]- Care Team Providers Care Imitation Marble Mechanic Name Role Phone Bambi GUADARRAMA, Jazzy Ricky Primary Care Physician [phone] Encounter [facility] Date(s): 10/21/21 - 11/20/[address] [address] Attending Physician: Walter Sanchez MD Admitting Physician: [...]
--- OUTSIDE RECORDS SUMMARY | 2023-04-17 23:53 | XMS_ITS | Continuity of Care Document ---
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 Role Phone Bambi GUADARRAMA, Jazzy García Primary Care Physician Encounter [facility] Date(s): 09/06/21 - 09/17/[address] [address]- Discharge Disposition: Transfer to [facility] Facility Attending Physician: Luis Enrique Canales MD Admitting Physician: Luther Del Rio MD Referring Physician: Luther Del Rio MD Allergies, Adverse Reactions, Alerts Substance Reaction Severity Status methotrexate itch Active Coumadin itch,Headache Active Immunizations Given and Recorded Vaccine Date Status Refusal Reason influenza virus vaccine, inactivated 09/05/21 Give n influenza virus vaccine, inactivated 05/06/18 Give n Medications gabapentin 300 mg oral capsule 300 mg, Capsule, By Mouth, 09/17/21 9:00:00 EST Start Date: 09/17/21 Stop Date: 09/17/21 Status: Completed Problem List Condition Effective Dates Status Health Status Inform ant Myalgia(Confirmed) Active SI joint arthritis(Confirmed) Active Underweight(Confirmed) Active Vital Signs Most recent to oldest [Reference Range]: 1 2 3 Height 160 cm (09/17/21 8:37 AM) 160 cm (09/16/21 2:31 PM) 160 cm (09/15/21 8:34 AM) Weight 45.9 kg (09/09/21 10:56 AM) 46.5 kg (09/06/21 9:09 AM) Oxygen Saturation [94-100 %] 98 % (09/17/21 8:37 AM) 100 % (09/17/21 4:00 AM) 99 % (09/17/21 1:00 AM) Pulse Rate [55-90 bpm] 63 bpm (09/17/21 8:37 AM) 65 bpm (09/17/21 4:00 AM) 66 bpm (09/17/21 1:00 AM) Body Mass Index [18.5-24.99] 18.16 *L* (09/06/21 9:09 AM) Blood Pressure [90-138/55-84 mm Hg] 95/64mm Hg (09/17/21 8:37 AM) 98/67mm Hg (09/17/21 4:00 AM) 95/49mm Hg (09/17/21 1:00 AM) Respiratory Rate [16-30 br/min] 20 br/min (09/17/21 12:23 PM) 20 br/min (09/17/21 9:22 AM) 18 br/min (09/17/21 8:37 AM) Temperature [96.8-100.4 DegF] 98.2 DegF (09/17/21 8:37 AM) 98.7 DegF (09/17/21 4:00 AM) 98.0 DegF (09/17/21 1:00 AM) Liters per Minute 1 L/min (09/17/21 4:00 AM) 1 L/min (09/16/21 5:00 AM) 1 L/min (09/15/21 11:00 PM) Mode of Delivery (Oxygen) Room air (09/17/21 8:37 AM) Nasal cannula (09/17/21 4:00 AM) Room air (09/17/21 1:00 AM) Blood pressure sites Arm, right (09/17/21 8:37 AM) Arm, right (09/17/21 4:00 AM) Arm, left (09/17/21 1:00 AM) Temperature Route Oral (09/17/21 8:37 AM) Oral (09/17/21 4:00 AM) Oral (09/17/21 1:00 AM) Dry Weight 46.5 kg (09/06/21 9:09 AM) Weight Obtained Via Standing scale (09/09/21 10:56 AM) Social History Social History Type Response Smoking Status Never (less than 100 in lifetime) entered on: 10/12/18 Sex
--- OUTSIDE RECORDS SUMMARY | 2023-04-17 23:53 | XMS_ITS | Continuity of Care Document ---
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 Name Role Phone Bambi GUADARRAMA, Jazzy García Primary Care Physician Encounter [facility] Date(s): 07/14/21 - 09/04/[address] [address]- Discharge Disposition: Transfer to [facility] Facility Attending Physician: Delisa Granado MD Admitting Physician: Nu Davila MD Referring Physician: Not on Staff, Referring MD Allergies, Adverse Reactions, Alerts Substance Reaction Severity Status methotrexate itch Active Coumadin itch,Headache Active Immunizations Given and Recorded Vaccine Date Status Refusal Reason influenza virus vaccine, inactivated 05/06/18 Give n Medications Acetaminophen Tablet 975 mg, Tablet, By Mouth, 09/03/21 20:00:00 EST Start Date: 09/03/21 Stop Date: 09/03/21 Status: Completed levothyroxine 75 mcg (0.075 mg) oral tablet 1 tablet = 75 mcg, By Mouth, Daily, # 30 tablet, 0 Refills, Maintenance, 07/15/21 17:49:00 EST, Tablet, Partial fill upon patient request if the prescription is for a schedule II opioid drug. Start Date: 07/15/21 Status: Ordered Problem List Condition Effective Dates Status Health Status Inform ant Myalgia(Confirmed) Active SI joint arthritis(Confirmed) Active Underweight(Confirmed) Active Results Radiology Reports (Most Recent Ten) * Exam Date Time Procedure Performing Provider Status 08/26/21 11:24 PM Chest Portable Stella Isaacs; Mayra th (Verified) Notes: (Chest Portable) Reason For Exam: NGT placement;Line Placement RESULT: Chest Portable Chest Portable Reason: Line Placement; NGT placement; Clinical Question(s): Line Placement COMPARISON: 08/23/2021. FINDINGS: LINES AND TUBES: Again demonstrated is an enteric tube with its tip in the left upper abdomen in satisfactory position. LUNGS AND PLEURA: Again seen is a linear opacity in the lower left lung field. No pleural effusion. No pneumothorax. HEART, MEDIASTINUM AND LAUREN: Heart is normal in size. Normal upper mediastinal and hilar contour. BONES AND SOFT TISSUES: Again seen are surgical clips in the left abdomen compatible with cholecystectomy. IMPRESSION: No acute abnormality. Again demonstrated is S-shaped scoliosis of the thoracolumbar spine. WSN: [id number] Ordering Physician: Yamile Farooq Dictated By: Harriett Palma MD Dictated Date/Time: 08/26/21 11:33 p Reviewed By: Harriett Palma MD Signed By: Harriett Palma MD Signed Date/Time: 08/26/21 11:33 pm Transcribed By: FILI Transcribed Date/Time: 08/26/21 11:28 pm * Exam Date Time Procedure Performing Provider Status 08/23/21 12:24 AM Chest Portable Lam Olivo; Auth (Ve rified) Notes: (Chest Portable) Reason For Exam: Line Placement RESULT: Chest Portable Chest Portable AP upright at 12:11 AM REASON: Line Placement; Clinical Question(s): Line Placement; Special Instructions: For NGT placement / Line Placement COMPARISON: 08/21/2021 FINDINGS: LINES AND TUBES: Enteric tube tip and side-port project in the stomach. LUNGS AND PLEURA: Unchanged linear band of scarring or atelectasis in the left midlung. No pleural effusion. No pneumothorax. HEART, MEDIASTINUM AND LAUREN: Heart is normal in size. Normal mediastinal and hilar contour. BONES AND SOFT TISSUES: No acute abnormality. IMPRESSION: Enteric tube ends in the stomach. WSN: [id number] Ordering Physician: Aide Pina Dictated By: Geraldo Parham MD Dictated Date/Time: 08/23/21 8:23 am Reviewed By: Geraldo Parham MD Signed By: Geraldo Parham MD Signed Date/Time: 08/23/21 8:23 am Transcribed By: FILI Transcribed Date/Time: 08/23/21 8:23 am * Exam Date Time Procedure Performing Provider Status 08/21/21 5:05 AM Chest Portable Tequila Canseco; Auth (Verified) Notes: (Chest Portable) Reason For Exam: NGT placement;Tube Placement RESULT: Chest Portable Chest Portable performed upright at 4:59 AM Reason: Tube Placement; NGT placement; Clinical Question(s): Tube Placement COMPARISON: Multiple prior chest x-rays, the most recent of which is dated 08/19/2021. FINDINGS: LINES AND TUBES: An enteric tube extends to the stomach. LUNGS AND PLEURA: Unchanged mild linear atelectasis laterally in the left mid chest. No pleural effusion. No pneumothorax. HEART, MEDIASTINUM AND LAUREN: Heart is normal in size. Normal upper mediastinal and hilar contour. BONES AND SOFT TISSUES: No acute abnormality. IMPRESSION: Enteric tube in the stomach. Otherwise, no change. WSN: [id number] Ordering Physician: Terri Winchester Dictated By: Krysten Ladd MD Dictated Date/Time: 08/21/21 8:18 am Reviewed By: Krysten Ladd MD Signed By: Krysten Ladd MD Signed Date/Time: 08/21/21 8:18 am Transcribed By: FILI Transcribed Date/Time: 08/21/21 8:17 am * Exam Date Time Procedure Performing Provider Status 08/20/21 12:03 AM Chest Portable Geovani , Lam; Auth (Ve rified) Notes: (Chest Portable) Reason For Exam: Tube Placement RESULT: Chest Portable Chest Portable Reason: Tube Placement; Clinical Question(s): Tube Placement COMPARISON: 08/18/2021 FINDINGS: LINES AND TUBES: Enteric tube in good position with tip and side-port in the stomach. LUNGS AND PLEURA: Clear lungs. Normal pulmonary vascularity. No pleural effusion. No pneumothorax. HEART, MEDIASTINUM AND LAUREN: Heart is normal in size. Normal upper mediastinal and hilar contour. BONES AND SOFT TISSUES: No acute abnormality. Thoracic levoscoliosis and lumbar dextroscoliosis. Surgical clips in the right upper quadrant from a remote cholecystectomy. IMPRESSION: Enteric tube in good position with tip and side-port in the stomach. No acute disease. Thoracolumbar scoliosis. WSN: [id number] Ordering Physician: Geovanni Moreno Dictated By: Ashkan Ashraf MD Dictated Date/Time: 08/20/21 8:07 am Reviewed By: Ashkan Ashraf MD Signed By: Ashkan Ashraf MD Signed Date/Time: 08/20/21 8:07 am Transcribed By: FILI Transcribed Date/Time: 08/20/21 8:06 am * Exam Date Time Procedure Performing Provider Status 08/18/21 9:15 PM Chest Portable Eugenie Arora (Ve rified) Notes: (Chest Portable) Reason For Exam: Line Placement RESULT: Chest Portable Chest Portable INDICATION: Line placement COMPARISON: 08/17/2021 FINDINGS: LINES AND TUBES: Enteric tube courses below the diaphragm, with side-port projecting over the left upper abdomen andtip extending beyond the field of view into the left upper to mid abdomen. LUNGS AND PLEURA: Clear lungs. Normal pulmonary vascularity. No pleural effusion. No pneumothorax. HEART, MEDIASTINUM AND LAUREN: Heart is normal in size. Normal upper mediastinal and hilar contour. BONES AND SOFT TISSUES: No acute abnormality. Moderate thoracolumbar scoliosis. Cholecystectomy clips visualized. IMPRESSION: Enteric tube courses below the diaphragm, with side-port projecting over the left upper abdomen andtip extending beyond the field of view into the left upper to mid abdomen. I have personally reviewed the images and I agree with this report. WSN: [id number] Ordering Physician: Geovanni Moreno Dictated By: Antony Kendrick DO Dictated Date/Time: 08/18/21 9:34 pm Reviewed By: Moi Brothers MD Signed By: Moi Brothers MD Signed Date/Time: 08/18/21 9:39 pm Transcribed By: FILI Transcribed Date/Time: 08/18/21 9:32 pm * Exam Date Time Procedure Performing Provider Status 08/17/21 5:42 PM Chest Portable Yumiko Archibald; Leo (Ve rified) Notes: (Chest Portable) Reason For Exam: Tube Placement RESULT: Chest Portable Chest Portable Reason: Tube Placement; Clinical Question(s): Tube Placement COMPARISON: 08/16/2021 FINDINGS: LINES AND TUBES: Enteric tube within the stomach. LUNGS AND PLEURA: Linear atelectasis or scarring in the left lower lung zone. No pleural effusion. No pneumothorax. HEART, MEDIASTINUM AND LAUREN: Heart is normal in size. Normal upper mediastinal and hilar contour. BONES AND SOFT TISSUES: No acute abnormality. IMPRESSION: No acute abnormality. WSN: [id number] Ordering Physician: Geovanni Moreno Dictated By: Pavan Robins MD Dictated Date/Time: 08/17/21 6:41 pm Reviewed By: Pavan Robins MD Signed By: Pavan Robins MD Signed Date/Time: 08/17/21 6:41 pm Transcribed By: FILI Transcribed Date/Time: 08/17/21 6:39 pm * Exam Date Time Procedure Performing Provider Status 08/16/21 8:20 PM Chest Portable Amalia Holt; Leo (V erified) Notes: (Chest Portable) Reason For Exam: NGT placment, check position;Other: RESULT: Chest Portable Chest Portable Reason: Other:; NGT placement, check position; Clinical Question(s): Other:; NGT placement, check position COMPARISON: 08/08/2021 FINDINGS: LINES AND TUBES: The tip of the nasogastric tube is not seen but side port and most distal aspect along the greater curvature. LUNGS AND PLEURA: Reticular densities in the left lung base. HEART, MEDIASTINUM AND LAUREN: Heart is normal in size. Normal upper mediastinal and hilar contour. BONES AND SOFT TISSUES: No acute abnormality. IMPRESSION: Enteric tube in good position. WSN: [id number] Ordering Physician: Rustam Major Dictated By: Moi Brothers MD Dictated Date/Time: 08/16/21 9:09 pm Reviewed By: Moi Brothers MD Signed By: Moi Brothers MD Signed Date/Time: 08/16/21 9:09 pm Transcribed By: FILI Transcribed Date/Time: 08/16/21 9:08 pm * Exam Date Time Procedure Performing Provider Status 08/08/21 11:22 AM Chest Portable Katie Azar; Leo (Verified) Notes: (Chest Portable) Reason For Exam: Tube Placement RESULT: Chest Portable Chest Portable Reason: Tube Placement; Clinical Question(s): Tube Placement COMPARISON: Multiple priors most recently 08/05/2021 FINDINGS: LINES AND TUBES: Enteric tube with side port within the stomach. LUNGS AND PLEURA: Clear lungs. Normal pulmonary vascularity. No pleural effusion. No pneumothorax. HEART, MEDIASTINUM AND LAUREN: Heart is normal in size. Prominent aortic arch, unchanged. BONES AND SOFT TISSUES: No acute abnormality. Moderate thoracolumbar scoliosis. IMPRESSION: Enteric tube with side port within the stomach. No acute cardiopulmonary process. I have personally reviewed the images and I agree with this report. WSN: [id number] Ordering Physician: Milagro Cerda Dictated By: Olimpia Casper DO Dictated Date/Time: 08/08/21 11:38 a Reviewed By: José Miguel Wilson MD Signed By: José Miguel Wilson MD Signed Date/Time: 08/08/21 11:43 am Transcribed By: FILI Transcribed Date/Time: 08/08/21 11:28 am * Exam Date Time Procedure Performing Provider Status 08/05/21 7:12 PM Chest Portable Vladislav Menard; Auth (V erified) Notes: (Chest Portable) Reason For Exam: Tube Placement RESULT: Chest Portable AP upright portable chest dated August 05, 2021 at 1900 hours. Comparison films are from today at 1316 hours. HISTORY: Tube placement. FINDINGS: The cardiac silhouette is within normal limits for size. The aortic arch is mildly enlarged. A nasogastric tube is present extending into the left upper quadrant. The tip and sidehole are distal to the EG junction region. No airspace infiltrate or pleural effusion is identified. There is a convex left thoracolumbar scoliosis. IMPRESSION: Nasogastric tube in place. No evidence of acute pulmonary disease. Examination [address]. Thank you for allowing me to participate in the care of this patient. WSN: [id number] Ordering Physician: Geovanni Moreno Dictated By: Elfego Goodman MD Dictated Date/Time: 08/05/21 7:18 pm Reviewed By: Elfego Goodman MD Signed By: Elfego Goodman MD Signed Date/Time: 08/05/21 7:18 pm Transcribed By: FILI Transcribed Date/Time: 08/05/21 7:18 pm * Exam Date Time Procedure Performing Provider Status 08/05/21 1:51 PM Chest Portable Mary Aaron; Auth (V erified) Notes: (Chest Portable) Reason For Exam: Tube Placement RESULT: Chest Portable Chest Portable REASON: Tube Placement; Clinical Question(s): Tube Placement / Tube Placement COMPARISON: 07/26/2021 FINDINGS: LINES AND TUBES: Enteric tube tip and side-port project in the stomach. LUNGS AND PLEURA: Clear lungs. Normal pulmonary vascularity. No pleural effusion. No pneumothorax. HEART, MEDIASTINUM AND LAUREN: Heart is normal in size. Normal mediastinal and hilar contour. BONES AND SOFT TISSUES: No acute abnormality. Thoracolumbar scoliosis, similar to prior. There are surgical clips in the right upper quadrant. IMPRESSION: Enteric tube tip and side-port project in the stomach. WSN: [id number] Ordering Physician: Geovanni Moreno Dictated By: Geraldo Parham MD Dictated Date/Time: 08/05/21 1:58 pm Reviewed By: Geraldo Parham MD Signed By: Geraldo Parham MD Signed Date/Time: 08/05/21 1:58 pm Transcribed By: FILI Transcribed Date/Time: 08/05/21 1:57 pm Vital Signs Most recent to oldest [Reference Range]: 1 2 3 Height 160 cm (09/03/21 7:40 PM) 160 cm (09/03/21 3:30 PM) 160 cm (09/03/21 10:53 AM) Weight 41.1 kg (09/03/21 6:26 AM) 46 kg (08/28/21 4:00 PM) 46 kg (08/28/21 1:52 PM) Oxygen Saturation [94-100 %] 93 % *L* (09/03/21 7:40 PM) 98 % (09/03/21 3:30 PM) 100 % (09/03/21 10:53 AM) Pulse Rate [55-90 bpm] 80 bpm (09/03/21 7:40 PM) 74 bpm (09/03/21 3:30 PM) 73 bpm (09/03/21 10:53 AM) Body Mass Index [18.5-24.99] 14.84 *L* (07/15/21 6:05 AM) Blood Pressure [90-138/55-84 mm Hg] 100/62mm Hg (09/03/21 7:40 PM) 100/61mm Hg (09/03/21 3:30 PM) 99/62mm Hg (09/03/21 10:53 AM) Respiratory Rate [16-30 br/min] 16 br/min (09/03/21 9:51 PM) 17 br/min (09/03/21 7:40 PM) 18 br/min (09/03/21 3:30 PM) Temperature [96.8-100.4 DegF] 97.9 DegF (09/03/21 7:40 PM) 98.4 DegF (09/03/21 3:30 PM) 98.2 DegF (09/03/21 10:53 AM) Mode of Delivery (Oxygen) Room air (09/03/21 7:40 PM) Room air (09/03/21 3:30 PM) Room air (09/03/21 10:53 AM) Blood pressure sites Arm, right (09/03/21 3:30 PM) Arm, right (09/03/21 10:53 AM) Arm, right (09/03/21 8:01 AM) Temperature Route Oral (09/03/21 7:40 PM) Oral (09/03/21 3:30 PM) Oral (09/03/21 10:53 AM) Dry Weight 38 kg (07/15/21 12:38 PM) Weight Obtained Via Bed scale (09/03/21 6:26 AM) Bed scale (08/28/21 1:52 PM) Bed scale (08/18/21 6:14 PM) Dry Weight Obtained Via Bed scale (07/15/21 12:38 PM) Social History Social History Type Response Smoking Status Never (less than 100 in lifetime) entered on: 10/12/18 Sex
[2023-04-18] MEDS: ondansetron HCL 4 MG/2 ML VIAL IVPUSH ×2 (00:31→06:14)
[2023-04-18] MEDS: Lactated Ringers 1,000 ML 100 ML IVCONT ×2 (00:31→17:59)
[2023-04-18] MEDS: Potassium Chloride/H20 10 MEQ/100 ML PIGGYBACK 100 MEQ IV ×8 (00:31→23:53)
[2023-04-18] MEDS: Potassium Chloride Packet 20 MEQ PACKET 40 MEQ PO ×2 (00:32→17:58)
[2023-04-18] MEDS: Enoxaparin Sodium 30 MG/0.3 ML SYRINGE SUBCUT ×2 (01:06→21:34)
[2023-04-18] MEDS: 0.9 % Sodium Chloride Flush 3 ML SYRINGE IVFLUSH ×3 (01:06→21:35)
[2023-04-18] MEDS: Metoclopramide HCl 10 MG/2 ML VIAL 5 MG IVPUSH ×2 (03:03→10:27)
[2023-04-18] MEDS: OLANZapine 10 MG VIAL IM (03:03)
[2023-04-18 04:00] VITALS: BP 100/62; PULSE 99; RESP 16; TEMP 37; O2SAT 98
[2023-04-18 07:20] VITALS: BP 100/64; PULSE 90; RESP 12; TEMP 36.8; O2SAT 94
[2023-04-18 08:11] LABS: Hematocrit 45.4 % (37.0-47.0); Hemoglobin 15.4 g/dl (12.0-16.0); Mean Corpuscular HGB Conc 33.9 g/dl (31.0-35.0); Mean Corpuscular Hemoglobin 28.5 pg (27.0-33.0); Mean Corpuscular Volume 84.1 fL (80.0-98.0); Mean Platelet Volume 9.7 fL (9.4-12.3); Platelet Count 371 X10*3/uL (160-400); Red Cell Distribution Width 15.8 % (11.0-16.0); White Blood Count 21.9 X10*3/uL (4.8-10.8)
[2023-04-18] MEDS: Famotidine/PF 20 MG/2 ML VIAL IVPUSH ×2 (08:20→21:35)
[2023-04-18 08:41] LABS: Anion Gap 19 (12-20); Blood Urea Nitrogen 30 mg/dL (9-16); Calcium 10.4 mg/dL (8.4-10.2); Carbon Dioxide 23 mmol/L (22-29); Chloride 97 mmol/L (96-108); Estimated Glomerular Filt Rate 22; Glucose Random 121 mg/dL (60-115); Potassium 2.5 mmol/L (3.3-5.1); Sodium 136 mmol/L (135-145)
--- NOTE | 2023-04-18 08:52 | P.PNIM_ITS ---
Subjective Subjective Date of Service: 04/18/23 Review of Systems Follow up intractable nausea and vomiting still with nausea Physical Exam 2 Vital Signs: Vital Signs: Last Vital Signs Temp 98.2 F 04/18/23 07:20 Pulse 90 04/18/23 07:20 Resp 12 04/18/23 07:20 BP 100/64 04/18/23 07:20 Pulse Ox 94 04/18/23 07:20 O2 Del Method Room Air 04/18/23 07:20 Appearing in no acute distress lung sounds are clear to auscultation heart regular rate rhythm, clear S1, S2 positive bowel sounds, tender diffuse neuro patient is alert x3, no focal deficits Objective Data Active Medications Docusate Sodium (Docusate Sodium 100 Mg Capsule) 100 mg PO DAILY PRN PRN Reason: Constipation Enoxaparin Sodium (Enoxaparin Sodium 30 Mg/0.3 Ml Syringe) 30 mg SUBCUT Q24H [facility] Last Admin: 04/18/23 01:06 Dose: 30 mg Documented By: HUGO Famotidine (Famotidine/Pf 20 Mg/2 Ml Vial) 20 mg IVPUSH BID [facility] Last Admin: 04/18/23 08:20 Dose: 20 mg Documented By: HALLEY Lactated Ringer's (Lr) 1,000 mls @ 100 mls/hr IVCONT .Q10H [facility] Last Admin: 04/18/23 00:31 Dose: 100 mls/hr Documented By: HUGO Metoclopramide HCl (Metoclopramide Hcl 10 Mg/2 Ml Vial) 5 mg IVPUSH Q6H PRN PRN Reason: Nausea and Vomiting Last Admin: 04/18/23 03:03 Dose: 5 mg Documented By: HUGO Ondansetron HCl (Ondansetron Hcl 4 Mg/2 Ml Vial) 4 mg IVPUSH Q6H PRN PRN Reason: Nausea and Vomiting Last Admin: 04/18/23 06:14 Dose: 4 mg Documented By: HUGO Potassium Chloride (Potassium Chloride Er 20 Meq Tab.Er.Prt) 40 meq PO BID [facility] Sodium Chloride (0.9 % Sodium Chloride Flush 3 Ml Syringe) 3 ml IVFLUSH QSHIFT [facility] Last Admin: 04/18/23 08:20 Dose: 3 ml Documented By: HALLEY Labs 04/18/23 07:41 04/18/23 07:41 Labs: Laboratory Results - last 24 hr 04/18/23 07:41 MCV 84.1 MCH 28.5 MCHC 33.9 RDW 15.8 Plt Count 371 MPV 9.7 Absolute Nucleated RBC 0.000 Nucleated RBC % (auto) 0.0 Anion Gap 19 Estim Creat Clear Calc TNP Estimated GFR 22 Random Glucose 121 H Calcium 10.4 H D Assessment and Plan (1) Intractable nausea and vomiting: Status: Acute Plan Pt is a 48-year-old female with a PMH significant for?hypothyroidism, depression, anxiety, PTSD, and bipolar disorder who presented to the ED?on 04/10/2023 with SI with vague plan and was admitted to Psychiatry. Pt had recent fall with head strike on 04/13/2023. Patient has since had intractable nausea and vomiting Leukocytosis likely to nausea and vomiting, no infectious source Hypokalemia Potassium 2.5 Likely secondary to intractable nausea and vomiting, reduced p.o. intake Will supplement with IV and po potassium Follow BMP Intractable nausea and vomiting Etiology unclear, Has been experiencing symptoms for at least 14 days, though much worse after fall with head strike on 04/13/[address] neg for acute abnormality GI consult pending clears antiemetics IV fluids IV Pepcid NYLA Creatinine 2.34, elevated from baseline of 0.90 Likely secondary to intractable nausea and vomiting, reduced p.o. intake Treat as above Follow BMP Hypothyroidism Patient's TSH > 100 on 04/10/2023, now down to 19.55 Recently started on levothyroxine 112 mcg Free T4 0.95 Mood disorder Continue lithium ER 600 mg q.h.s. Continue Latuda Clonazepam, clonidine p.r.n. Full Code Attending:?Dr. Fisher DVT Prophylaxis: Lovenox continue hospital stay for treatment of hypokalemia with IV potassium, NYLA with IVF, and intractable nausea and vomiting with IV anti emetics and specialist consult. Time Spent With Patient Time: Total time managing care of this patient today ____ minutes. Quality Stroke Does the patient have a stroke diagnosis?: No VTE Prior VTE?: No VTE Risk Level:: Medical - moderate - high VTE Device Contraindication: Treatment Not Indicated VTE Drug Contraindication: N/A - Med Ordered
[2023-04-18] MEDS: Potassium Chloride ER 20 MEQ TAB.ER.PRT 40 MEQ PO ×2 (10:26→21:34)
[2023-04-18 11:34] VITALS: BP 111/70; PULSE 90; RESP 13; TEMP 36.6; O2SAT 94
--- NOTE | 2023-04-18 11:57 | P.CNGI_ITS ---
History of Present Illness Data of Consult Service Date: 04/18/23 Requesting physician: Gabby Caldwell Primary Care Provider: Unknown Physician HPI Reason for consult: Abd pain, N,V This is a 48-year-old female past medical history of hypothyroidism, bipolar disorder, PTSD, who has been admitted to the hospital for a week for suicidal ideation with inpatient psychiatry care. Hospital course complicated by persistent nausea and vomiting since fall on 04/13. Gastroenterology has been consulted for further evaluation. Pt seen at bedside and reports having occ nausea and vomiting x weeks before hospitalistion without abd pain. However after she sustained a fall and hit the the back of her head she developed light sensitivity, nausea and vomiting up to 4-5 times a day with inability to tolerate much PO. Again this remains without any abd pain or changes in bowel habits. No fevers or chills. Head imaging without any overt fractures or parenchymal injury. Abd imaging without any obstruction or inflammation of the GI tract. Today, reports significant improvement in nausea. Has not had any vomiting and thinks may be able to tolerate something to eat. Review of Systems 2 Review of Systems: Yes all other systems are reviewed and are negative [facility] Past Medical History Medical History (Updated 04/18/23 @ 13:[address] MD) Intellectual disability PTSD (post-traumatic stress disorder) Anxiety Hypothyroidism Depression Social History Social History Household Members: Family Housing: House Do you presently have visiting nurse or other home services: No Patient Tobacco Use Status: Never used Tobacco Use of substances other than those prescribed or required for medical reasons: Yes Substance Use Type: Marijuana Currently Displaying Signs/Symptoms of Drug Intoxication Withdrawal: No Have you been hit, kicked, punched, or otherwise hurt by someone within the past year? If so, by whom?: No Do you feel safe in your current relationship?: Yes Is there a partner from a previous relationship who is making you feel unsafe now?: No Are you made to feel afraid or neglected: No Advance Directives: No Advance Directives Information Provided: Yes Do you have thoughts of harming others: None Do you have a plan to hurt others: No Plan Recently lost weight without trying: No Patient : No service: No Sexual orientation: Straight/Heterosexual Meds Allergies Allergy/AdvReac Type Severity Reaction Status Date / Time methotrexate Allergy Rash Verified 03/22/23 20:54 warfarin [From Coumadin] Allergy Rash Verified 03/22/23 20:54 Active Medications: Current Medications Docusate Sodium (Docusate Sodium 100 Mg Capsule) 100 mg PO DAILY PRN PRN Reason: Constipation Enoxaparin Sodium (Enoxaparin Sodium 30 Mg/0.3 Ml Syringe) 30 mg SUBCUT Q24H [facility] Last Admin: 04/18/23 01:06 Dose: 30 mg Famotidine (Famotidine/Pf 20 Mg/2 Ml Vial) 20 mg IVPUSH BID [facility] Last Admin: 04/18/23 08:20 Dose: 20 mg Lactated Ringer's (Lr) 1,000 mls @ 100 mls/hr IVCONT .Q10H [facility] Last Admin: 04/18/23 10:31 Dose: Not Given Metoclopramide HCl (Metoclopramide Hcl 10 Mg/2 Ml Vial) 5 mg IVPUSH Q6H PRN PRN Reason: Nausea and Vomiting Last Admin: 04/18/23 10:27 Dose: 5 mg Ondansetron HCl (Ondansetron Hcl 4 Mg/2 Ml Vial) 4 mg IVPUSH Q6H PRN PRN Reason: Nausea and Vomiting Last Admin: 04/18/23 06:14 Dose: 4 mg Potassium Chloride (Potassium Chloride Er 20 Meq Tab.Er.Prt) 40 meq PO BID [facility] Last Admin: 04/18/23 10:26 Dose: 40 meq Sodium Chloride (0.9 % Sodium Chloride Flush 3 Ml Syringe) 3 ml IVFLUSH QSHIFT [facility] Last Admin: 04/18/23 08:20 Dose: 3 ml Home Medications Medication Instructions Recorded Confirmed Last Taken Type clonazepam 0.5 mg tablet 0.5 mg PO TID PRN Anxiety 04/10/23 04/18/23 Unknown History clonidine HCl 0.1 mg tablet 0.1 mg PO TID 04/10/23 04/18/23 Unknown History melatonin 5 mg tablet 10 mg PO BEDTIME 04/10/23 04/18/23 Unknown History levothyroxine 112 mcg tablet 112 mcg PO DAILY 04/18/23 04/18/23 Unknown History lurasidone 20 mg tablet (Latuda) 20 mg PO DAILY 04/18/23 04/18/23 Unknown History thiamine HCl (vitamin B1) 100 mg 100 mg DAILY 04/18/23 04/18/23 Unknown History tablet yeast ea PO 04/18/23 Unknown History Physical Exam 2 Vital Signs: Vital Signs: Last Vital Signs Temp 97.9 F 04/18/23 11:34 Pulse 90 04/18/23 11:34 Resp 13 04/18/23 11:34 BP 111/70 04/18/23 11:34 Pulse Ox 94 04/18/23 11:34 O2 Del Method Room Air 04/18/23 11:34 Gen appear: NAD HEENT: nonicteric, no cervical lymphadenopathy Chest: CTA CVS: Regular S1/S2 Abd: soft, nontender, nondistended, bowel sounds + Ext: no peripheral edema Neuro: A/Ox3, noted to move all extremities spontaneously Psych: interacting appropriately Results Labs 04/18/23 07:41 04/19/23 05:45 Labs: Short CBC 04/18/23 Range/Units 07:41 WBC 21.9 H (4.8-10.8) X10*3/uL Hgb 15.4 (12.0-16.0) g/dl Hct 45.4 (37.0-47.0) % Plt Count 371 (160-400) X10*3/uL BMP 04/18/23 07:41 Sodium 136 Potassium 2.5 L* Chloride 97 Carbon Dioxide 23 BUN 30 H Creatinine 2.34 H Calcium 10.4 H D Assessment and Plan (1) Intractable nausea and vomiting: Status: Acute (2) Fall: Status: Acute Plan Sx most consistent with mild concussive injury leading to N/V. Reports no vomiting today. Sx of photophobia have improved as well. No obstruction noted on CT Abd/pel. Plan: - Start CLD and advance as tolerated - Correct electrolytes - If unable to advance to solids over next 1-2 days can consider EGD to r/o PUD, gastritis/duodenitis Thank you for allowing me to participate in her care. Please do not hestitate to reach out for any questions or concerns. Time Spent With Patient Time: Total time managing care of this patient today ____ minutes. Procedures Date of Service Date of Service: 04/18/23
--- NOTE | 2023-04-18 12:17 | MHC.CM.PN ---
CM MET WITH PT AT BEDSIDE . PT HAS 1:1 SITTER. PT INDEPENDENT AT BASELINE. + THRIVE ASSESSMENT, RESOURCE GUIDE PROVIDED. NO COVID VAX NO HCP PCP DR. PEREZ DP: PT WILL RETURN TO INPT PSYCH ON DC FROM MEDICAL UNIT. CM WILL CONTINUE TO FOLLOW FOR ANY CHANGE IN NEEDS/PLAN
[2023-04-18 12:28] LABS: Potassium 2.6 mmol/L (3.3-5.1)
[2023-04-18 16:00] VITALS: BP 120/74; PULSE 91; RESP 18; TEMP 36.9; O2SAT 96
[2023-04-18 16:36] LABS: Potassium 2.5 mmol/L (3.3-5.1)
[2023-04-18 18:07] LABS: Magnesium 1.8 mg/dL (1.6-2.6)
[2023-04-18 19:44] VITALS: BP 111/81; PULSE 87; RESP 18; TEMP 36.3; O2SAT 96
[2023-04-18] MEDS: clonazePAM 0.5 MG TABLET PO (22:17)
[2023-04-18] MEDS: traZODone HCL 50 MG TABLET 150 MG PO (22:17)
[2023-04-18] MEDS: cloNIDine HCL 0.1 MG TABLET PO (22:17)
[2023-04-18] MEDS: Lithium Carbonate ER 300 MG TABLET.ER 600 MG PO (23:01)
[2023-04-19] VITALS: BP 101/57; PULSE 83; PULSE 84; RESP 20; TEMP 36.7; O2SAT 96
[2023-04-19] MEDS: Potassium Chloride/H20 10 MEQ/100 ML PIGGYBACK 100 MEQ IV (01:01)
[2023-04-19 03:39] VITALS: BP 104/57; PULSE 78; RESP 20; TEMP 36.6; O2SAT 97
[2023-04-19] MEDS: Lactated Ringers 1,000 ML 100 ML IVCONT (04:23)
[2023-04-19 06:40] LABS: Anion Gap 9 (12-20); Blood Urea Nitrogen 22 mg/dL (9-16); Calcium 9.6 mg/dL (8.4-10.2); Carbon Dioxide 22 mmol/L (22-29); Chloride 106 mmol/L (96-108); Estimated Glomerular Filt Rate 54; Glucose Random 103 mg/dL (60-115); Potassium 2.8 mmol/L (3.3-5.1); Sodium 134 mmol/L (135-145)
[2023-04-19 07:29] VITALS: BP 93/57; PULSE 76; RESP 16; TEMP 36.5; O2SAT 94
[2023-04-19] MEDS: Magnesium Sulfate/D5W 1 GM/100 ML PIGGYBACK IV (08:11)
[2023-04-19] MEDS: Levothyroxine Sodium 112 MCG TABLET PO (08:16)
[2023-04-19] MEDS: Thiamine HCL 100 MG TABLET PO (08:16)
[2023-04-19] MEDS: 0.9 % Sodium Chloride Flush 3 ML SYRINGE IVFLUSH ×2 (08:16→14:08)
[2023-04-19] MEDS: Potassium Chloride ER 20 MEQ TAB.ER.PRT 40 MEQ PO ×3 (08:17→21:35)
[2023-04-19] MEDS: Lurasidone HCl 20 MG TABLET PO (08:18)
[2023-04-19] MEDS: cloNIDine HCL 0.1 MG TABLET PO ×3 (08:18→21:35)
--- NOTE | 2023-04-19 11:15 | HO.PM.IMPN ---
Subjective Subjective Date of Service: 04/19/23 Review of Systems Follow up intractable nausea and vomiting still with nausea Physical Exam Vital Signs: Vital Signs: Last Vital Signs Temp 97.7 F 04/19/23 07:29 Pulse 76 04/19/23 07:29 Resp 16 04/19/23 07:29 BP 93/57 L 04/19/23 07:29 Pulse Ox 94 04/19/23 07:29 O2 Del Method Room Air 04/19/23 07:29 Appearing in no acute distress lung sounds are clear to auscultation heart regular rate rhythm, clear S1, S2 positive bowel sounds, abdomen is soft, nontender neuro patient is alert x3, no focal deficits Objective Data Active Medications Clonazepam (Clonazepam 0.5 Mg Tablet) 0.5 mg PO TID PRN PRN Reason: Anxiety Last Admin: 04/18/23 22:17 Dose: 0.5 mg Documented By: LALI Clonidine HCl (Clonidine Hcl 0.1 Mg Tablet) 0.1 mg PO TID [facility]; Protocol Last Admin: 04/19/23 08:18 Dose: 0.1 mg Documented By: DAVID Docusate Sodium (Docusate Sodium 100 Mg Capsule) 100 mg PO DAILY PRN PRN Reason: Constipation Enoxaparin Sodium (Enoxaparin Sodium 30 Mg/0.3 Ml Syringe) 30 mg SUBCUT Q24H [facility] Last Admin: 04/18/23 21:34 Dose: 30 mg Documented By: LALI Levothyroxine Sodium (Levothyroxine Sodium 112 Mcg Tablet) 112 mcg PO DAILY [facility] Last Admin: 04/19/23 08:16 Dose: 112 mcg Documented By: DAVID [place] Carbonate ([place] Carbonate Er 300 Mg Tablet.Er) 600 mg PO BEDTIME [facility] Last Admin: 04/18/23 23:01 Dose: 600 mg Documented By: LALI Lurasidone HCl (Lurasidone Hcl 20 Mg Tablet) 20 mg PO DAILY [facility] Last Admin: 04/19/23 08:18 Dose: 20 mg Documented By: DAVID Melatonin (Melatonin 3 Mg Tablet) 9 mg PO BEDTIME [facility] Metoclopramide HCl (Metoclopramide Hcl 10 Mg/2 Ml Vial) 5 mg IVPUSH Q6H PRN PRN Reason: Nausea and Vomiting Last Admin: 04/18/23 10:27 Dose: 5 mg Documented By: HALLEY Ondansetron HCl (Ondansetron Hcl 4 Mg/2 Ml Vial) 4 mg IVPUSH Q6H PRN PRN Reason: Nausea and Vomiting Last Admin: 04/18/23 06:14 Dose: 4 mg Documented By: HUGO Potassium Chloride (Potassium Chloride Er 20 Meq Tab.Er.Prt) 40 meq PO BID [facility] Last Admin: 04/19/23 08:17 Dose: 40 meq Documented By: DAVID Sodium Chloride (0.9 % Sodium Chloride Flush 3 Ml Syringe) 3 ml IVFLUSH QSHIFT [facility] Last Admin: 04/19/23 08:16 Dose: 3 ml Documented By: DAVID Thiamine HCl (Thiamine Hcl 100 Mg Tablet) 100 mg PO DAILY [facility] Last Admin: 04/19/23 08:16 Dose: 100 mg Documented By: DAVID Trazodone HCl (Trazodone Hcl 50 Mg Tablet) 150 mg PO BEDTIME PRN PRN Reason: Insomnia Last Admin: 04/18/23 22:17 Dose: 150 mg Documented By: LALI Labs 04/18/23 07:41 04/19/23 05:45 Labs: Laboratory Results - last 24 hr 04/18/23 04/19/23 17:51 05:45 Anion Gap 9 L Estim Creat Clear Calc TNP Estimated GFR 54 Random Glucose 103 Calcium 9.6 D Magnesium 1.8 Assessment and Plan (1) Intractable nausea and vomiting: Status: Acute Plan Pt is a 48-year-old female with a PMH significant for?hypothyroidism, depression, anxiety, PTSD, and bipolar disorder who presented to the ED?on 04/10/2023 with SI with vague plan and was admitted to Psychiatry. Pt had recent fall with head strike on 04/13/2023. Patient has since had intractable nausea and vomiting Ear pain Leukocytosis likely to nausea and vomiting, no infectious source follow CBC Hypokalemia Potassium 2.8 Likely secondary to intractable nausea and vomiting, reduced p.o. intake Will supplement with IV and po potassium IV mag Follow BMP Intractable nausea and vomiting Etiology unclear, Has been experiencing symptoms for at least 14 days, though much worse after fall with head strike on 04/13/[address] neg for acute abnormality GI consult>no GI procedures necessary at this time antiemetics advance diet to regular NYLA Creatinine 2.34, elevated from baseline of 0.90 Likely secondary to intractable nausea and vomiting, reduced p.o. intake Treat as above Follow BMP Hypothyroidism Patient's TSH > 100 on 04/10/2023, now down to 19.55 Recently started on levothyroxine 112 mcg Free T4 0.95 Mood disorder Continue lithium ER 600 mg q.h.s. Continue Latuda Clonazepam, clonidine p.r.n. transferred from the medical center due to NYLA, re-consult when medically clear Full Code Attending:?Dr. Fisher DVT Prophylaxis: Lovenox continue hospital stay for treatment of hypokalemia with IV potassium, NYLA with IVF, and intractable nausea and vomiting with IV anti emetics and specialist consult. Time Spent With Patient Time: Total time managing care of this patient today ____ minutes. Quality Stroke Does the patient have a stroke diagnosis?: No VTE Prior VTE?: No VTE Risk Level:: Medical - moderate - high VTE Device Contraindication: Treatment Not Indicated VTE Drug Contraindication: N/A - Med Ordered
[2023-04-19 12:00] VITALS: BP 108/52; PULSE 78; RESP 17; TEMP 36.2; O2SAT 93
[2023-04-19] MEDS: Amoxicillin/Potassium Clav 875 MG TABLET PO ×2 (14:07→21:35)
[2023-04-19 20:00] VITALS: BP 102/56; PULSE 68; RESP 18; TEMP 36.3; O2SAT 97
[2023-04-19] MEDS: Melatonin 3 MG TABLET 9 MG PO (21:34)
[2023-04-19] MEDS: Lithium Carbonate ER 300 MG TABLET.ER 600 MG PO (21:36)
[2023-04-19] MEDS: clonazePAM 0.5 MG TABLET PO (21:41)
[2023-04-19] MEDS: traZODone HCL 50 MG TABLET 150 MG PO (21:42)
[2023-04-19] MEDS: Acetaminophen 325 MG TABLET 650 MG PO (21:43)
[2023-04-19] MEDS: Enoxaparin Sodium 30 MG/0.3 ML SYRINGE SUBCUT (21:46)
[2023-04-20] VITALS: BP 108/65; PULSE 62; RESP 18; TEMP 37.1; O2SAT 96
[2023-04-20] MEDS: 0.9 % Sodium Chloride Flush 3 ML SYRINGE IVFLUSH ×2 (00:04→09:00)
[2023-04-20 07:13] LABS: MANUAL DIFF FLAG NO
[2023-04-20 07:21] LABS: Basophils Percent Auto 0.4 % (0-2); Eosinophils Absolute Auto 0.3 X10*3/uL (0.0-0.4); Eosinophils Percent Auto 4.1 % (0-4); Hematocrit 38.1 % (37.0-47.0); Hemoglobin 12.4 g/dl (12.0-16.0); Imm Gran Abs Auto 0.02 X10*3/uL (0.00-0.03); Imm Gran Pct Auto 0.2 % (0.0-0.4); Lymphocytes Absolute Auto 1.9 X10*3/uL (1.2-4.9); Lymphocytes Percent Auto 23.4 % (20-40); Mean Corpuscular HGB Conc 32.5 g/dl (31.0-35.0); Mean Corpuscular Hemoglobin 28.7 pg (27.0-33.0); Mean Corpuscular Volume 88.2 fL (80.0-98.0); Mean Platelet Volume 10.2 fL (9.4-12.3); Monocytes Absolute Auto 0.6 X10*3/uL (0.1-1.2); Monocytes Percent Auto 7.6 % (2-11); Neutrophils Absolute Auto 5.3 x10*3/uL (2.0-8.3); Neutrophils Percent Auto 64.3 % (45-73); Platelet Count 264 X10*3/uL (160-400); Red Blood Count 4.32 X10*6/uL (4.20-5.50); White Blood Count 8.3 X10*3/uL (4.8-10.8)
[2023-04-20 07:51] VITALS: BP 92/60; PULSE 59; RESP 18; TEMP 36.4; O2SAT 96
[2023-04-20 07:53] LABS: Anion Gap 7 (12-20); Blood Urea Nitrogen 14 mg/dL (9-16); Calcium 9.8 mg/dL (8.4-10.2); Carbon Dioxide 22 mmol/L (22-29); Chloride 109 mmol/L (96-108); Estimated Glomerular Filt Rate > 60; Glucose Random 89 mg/dL (60-115); Potassium 3.7 mmol/L (3.3-5.1); Sodium 134 mmol/L (135-145)
[2023-04-20] MEDS: Amoxicillin/Potassium Clav 875 MG TABLET PO (08:59)
[2023-04-20] MEDS: Thiamine HCL 100 MG TABLET PO (08:59)
[2023-04-20] MEDS: Potassium Chloride ER 20 MEQ TAB.ER.PRT 40 MEQ PO ×2 (08:59→14:47)
[2023-04-20 09:16] VITALS: BP 88/8
--- NOTE | 2023-04-20 11:01 | MHC.CARE ---
Pt assessed by the CARE Team, plan for discharge home with current providers. Hospitalist aware of plan of care.
[2023-04-20 11:13] VITALS: BP 102/52; PULSE 65; RESP 18; TEMP 36.4; O2SAT 97
--- NOTE | 2023-04-20 12:36 | PM.DS ---
DS: Providers Provider Date of Service: 04/20/23 Date of admission: 04/17/23 23:01 Primary care physician: Unknown Physician Consults: 04/18/23 09:05 Consult to Gastroenterology Routine Consulting Provider: Fidelia Lane Reason for consultation: abd pain, intractable nausea and vomiting 04/20/23 07:58 Consult to Psychiatry Routine Consulting Provider: Psych Covering Reason for consultation: transfer back to psych DS: Diagnosis Discharge Diagnosis (1) Intractable nausea and vomiting: Status: Acute DS: Summary Hospital Course Hospital Course: HP as per admitting provider. Pt is a 48-year-old female with a PMH significant for?hypothyroidism, depression, anxiety, PTSD, and bipolar disorder who presented to the ED?on 04/10/2023 with SI with vague plan and was admitted to Psychiatry. Pt had recent fall with head strike on 04/13/2023. Patient fell backwards when exiting the shower, hitting her occipital scalp on the door. Patient did not fall to the floor or have loss of consciousness. CT of head on 04/14/2023 negative for intracranial pathology. Patient reporting continued, persistent nausea and vomiting. States she has vomited 14 time since last night and has been unable to eat or keep anything solid down. Also complains of headache, and earache bilaterally. Says her back hurts, her legs feel heavy, and has had confusion/mental fogginess. Some of patient's symptoms, especially nausea vomiting, have been ongoing prior to her arrival on the unit, though she states these have significantly worsened after her fall. Patient was diagnosed on 04/15 with likely mild concussion and patient has been resting in the isolation room. Currently she states her photophobia and phonophobia have improved. Patient's previous EKG showed a prolonged QTc of 585, and patient's Zofran has been stopped. Upon physical examination mild diffuse abdominal tenderness noted, abdomen soft, nondistended. No sign of head trauma: No lacerations, hematomas, sherwood sign, or raccoon eyes noted. Repeat CT of head on 04/17/2023 negative for acute intracranial hemorrhage or edematous territorial infarction. Repeat EKG showed shortened QTc of 407, initially read by computer as atrial flutter with 5-1 AV conduction, but appears to be sinus tachycardia with rate of 108. Pt was given 1 dose of Reglan and new labs were ordered. Repeat BMP showed critical potassium of 2.2, BUN elevated 25, and creatinine 2.39 (elevated from baseline of 0.90). Patient will be transferred from Psychiatry to the medical floor for hypokalemia, NYLA, and intractable nausea and vomiting. 48 year old woman treated for electrolyte abnormalities. She was initially admitted to the psychiatric floor for management of suicide ideation and depression. Patient had developed intractable nausea and vomiting and due to this subsequently developed hypokalemia mild hyponatremia and NYLA. After being transferred to the medical floor she was treated with IV and oral potassium, IV fluids and IV magnesium. After 2 days hole or electrolyte abnormalities have resolved. She has been able to eat solid foods and she denied any further nausea and vomiting. She was seen and evaluated by the care team who did not feel that the patient needed any further admission to the psychiatric unit. At this point patient will be discharged home. Otitis media. Developed pain to her right ear. She was noted to have some erythema and fluid to the eardrum. Started on amoxicillin, total 7 days of 175 twice daily. Mental health. Continue medications Hypothyroidism. Patient had been noncompliant with medications. On 112 mcg at this time. Patient should follow-up with primary care provider in 3-4 weeks to reassess her TSH. Time Spent with Patient Time attestation: Total time managing care of this patient today ____ minutes. Discharge coordination time: Greater than 30 minutes Quality: Safe Use of Opioids Does Pt have an Active Cancer Diagnosis on the Problem List?: No Quality: Stroke Does the patient have a stroke diagnosis?: No Physical Exam Vital Signs: Vital Signs: Last Vital Signs Temp 97.6 F 04/20/23 11:13 Pulse 65 04/20/23 11:13 Resp 18 04/20/23 11:13 BP 102/52 L 04/20/23 11:13 Pulse Ox 97 04/20/23 11:13 O2 Del Method Room Air 04/20/23 11:13 Appearing in no acute distress head is normocephalic atraumatic eyes pupils are PERRLA sclera is anicteric mouth throat mucous membranes are intact and moist neck is supple no lymphadenopathy, no JVD noted lung sounds are clear to auscultation heart regular rate rhythm, clear S1, S2 positive bowel sounds, abdomen is soft, nontender neuro patient is alert x3, no focal deficits DS: Data Data Completed and Pending Completed studies during hospitalization [Text1]: Procedures Insertion of Infusion Device into Upper Vein, Percutaneous Approach (03/23/23) Labs on day of discharge: Laboratory Results - last 24 hr 04/20/23 06:16 WBC 8.3 RBC 4.32 Hgb 12.4 Hct 38.1 MCV 88.2 MCH 28.7 MCHC 32.5 RDW 16.0 Plt Count 264 D MPV 10.2 Immature Gran % (Auto) 0.2 Neut % (Auto) 64.3 Lymph % (Auto) 23.4 [place] % (Auto) 7.6 Eos % (Auto) 4.1 H Baso % (Auto) 0.4 Lymph # (Auto) 1.9 [place] # (Auto) 0.6 Eos # (Auto) 0.3 Baso # (Auto) 0.0 Abs Immat Gran (auto) 0.02 Absolute Neuts (auto) 5.3 Absolute Nucleated RBC 0.000 Nucleated RBC % (auto) 0.0 Sodium 134 L Potassium 3.7 D Chloride 109 H Carbon Dioxide 22 Anion Gap 7 L BUN 14 Creatinine 0.97 Estim Creat Clear Calc TNP Estimated GFR > 60 Random Glucose 89 Calcium 9.8 Discharge Plan Discharge Anticipated Discharge Date/Time: 04/20/23 12:30 Patient Disposition: Home, Self-Care Discharge Diagnosis: Intractable nausea and vomiting Hypokalemia NYLA Otitis media Discharge Medications: New amoxicillin-pot clavulanate 875-125 mg Tablet 1 tab PO BID Qty: 12 0RF Continued clonidine HCl 0.1 mg tablet 0.1 mg PO TID clonazepam 0.5 mg tablet 0.5 mg PO TID PRN (Reason: Anxiety) melatonin 5 mg tablet 10 mg PO BEDTIME trazodone 50 mg Tablet 150 mg PO BEDTIME PRN (Reason: Insomnia) Qty: 0 0RF lithium carbonate 300 mg Tablet Extended Release 600 mg PO BEDTIME Qty: 0 0RF yeast Powder PO levothyroxine 112 mcg tablet 112 mcg PO DAILY lurasidone [Latuda] 20 mg tablet 20 mg PO DAILY thiamine HCl (vitamin B1) 100 mg Tablet 100 mg DAILY Discharge Orders: Discharge Order (Routine); Ordered 04/20/23 Ordered By: Gabby Caldwell Diet: Advance to usual diet Activity on Discharge: As tolerated Stand Alone Forms: Patient Portal Discharge page Care Plan Goals: Complete resolution of symptoms Health Concerns: Intractable nausea and vomiting Hypokalemia NYLA Otitis media Plan of Treatment: Follow-up with primary care provider as needed Take all medications as prescribed Assessment: See discharge summary
[2023-04-20] MEDS: Acetaminophen 325 MG TABLET 650 MG PO (14:46)
--- NOTE | 2023-04-20 16:21 | MHC.CM.PN ---
EMR reviewed and per MD rounds, pt is medically cleared for D/C home self-care. Pts friend Lam at [phone] to pick up driver and transport her home.
== END 2023-04-20 18:19 | disposition home or self-care (01) | DRG 425 ==
PROVIDERS: Physician Assistant; Student in an Organized Health Care Education/Training Program; Admitting Provider Student in an Organized Health Care Education/Training Program; Visit Provider Nurse Practitioner Acute Care
DX: E87.6 Hypokalemia (principal); N17.9 Acute kidney failure, unspecified; E03.9 Hypothyroidism, unspecified; H66.91 Otitis media, unspecified, right ear; F32.A Depression, unspecified; F41.9 Anxiety disorder, unspecified; F43.10 Post-traumatic stress disorder, unspecified; Z91.148 Patient's other noncompliance with medication regimen for other reason; Z79.890 Hormone replacement therapy; Z79.899 Other long term (current) drug therapy
CPT/HCPCS: 36415; 80048; 83735; 84132; 85025; 85027; J1650; J2405; J2765; J3475; S9485

== ENCOUNTER → 2023-04-17 23:01 | Outpatient (BNV) | payer OTHER, SELFPAY | PROVIDERS: Admitting Provider Student in an Organized Health Care Education/Training Program; Visit Provider Student in an Organized Health Care Education/Training Program | DX: R11.2 Nausea with vomiting, unspecified (principal) | CPT/HCPCS: 99223; 99232; 99239 ==

== ENCOUNTER → 2023-04-17 23:01 | Outpatient (BNV) | payer OTHER, SELFPAY | PROVIDERS: Admitting Provider Student in an Organized Health Care Education/Training Program; Visit Provider Internal Medicine | DX: R11.2 Nausea with vomiting, unspecified (principal); W19.XXXA Unspecified fall, initial encounter | CPT/HCPCS: 99222 ==

== ENCOUNTER 2023-05-05 17:21 | Emergency (ER) | payer OTHER, SELFPAY ==
[2023-05-05 17:37] VITALS: BP 108/53; PULSE 77; RESP 18; TEMP 36.9; O2SAT 98; BMI 27.2
--- NOTE | 2023-05-05 19:34 | ED_ITS ---
HPI - General Adult General Chief complaint: Psychiatric Symptoms Stated complaint: ?Confused Time Seen by Provider: 05/05/23 18:53 Source: patient and family Mode of arrival: ambulatory History of Present Illness HPI narrative: 48-year-old female presents with complaints of dizziness, tremors, ear pain, headache and also describes some confusion, family member is at bedside and states that she fell during her admission 2 weeks ago and was scanned in then subsequently was found to have a low potassium level and they are expressing concerns regarding concussion. Patient also stating that she is having thoughts of hurting herself and family member at bedside supports this stating that patient has been hitting herself. Related Data Home Medications Medication Instructions Recorded Confirmed clonazepam 0.5 mg tablet 0.5 mg PO TID PRN Anxiety 04/10/23 05/05/23 clonidine HCl 0.1 mg tablet 0.1 mg PO TID PRN Anxiety 04/10/23 05/05/23 melatonin 5 mg tablet 10 mg PO BEDTIME 04/10/23 05/05/23 levothyroxine 112 mcg tablet 112 mcg PO DAILY@1700 04/18/23 05/05/23 lurasidone 20 mg tablet (Latuda) 20 mg PO BEDTIME 04/18/23 05/05/23 trazodone 150 mg tablet 300 mg PO BEDTIME Insomnia 05/05/23 05/05/23 Previous Rx's Medication Instructions Recorded lithium carbonate 300 mg 600 mg (2 x 300 mg) PO BEDTIME #0 04/16/23 tablet,extended release tabs Allergies Allergy/AdvReac Type Severity Reaction Status Date / Time methotrexate Allergy Rash Verified 05/05/23 17:37 warfarin [From Coumadin] Allergy Rash Verified 05/05/23 17:37 Review of Systems 2 Review of Systems: Pertinent positives and negatives as stated in HPI [facility] Past Medical History Source: nursing notes reviewed Medical History Intellectual disability PTSD (post-traumatic stress disorder) Anxiety Hypothyroidism Depression Social History Social History Household Members: Family Housing: House Do you presently have visiting nurse or other home services: No Patient Tobacco Use Status: Never used Tobacco Substance Use Type: Marijuana Advance Directives: No Advance Directives Information Provided: No service: No Sexual orientation: Straight/Heterosexual Physical Exam ED Vital Signs: Vital Signs - 24 hr 05/05/23 17:37 Temperature 98.5 F Pulse Rate 77 Respiratory Rate 18 Blood Pressure 108/53 L Pulse Oximetry 98 Oxygen Delivery Method Room Air BMI result Body Mass Index 27.2 VITAL SIGNS: Reviewed. GENERAL: Well developed, well nourished, in no acute distress. HEAD: Normocephalic/atraumatic EYES: PERRLA, EOMI EARS: Ext canals without abnormality, TMs non-bulging and non-erythematous NOSE: Nares patent bilateral OROPHARYNX: no oral lesions noted, posterior pharynx clear NECK: Supple, no adenopathy LUNGS: Normal breath sounds. No adventitious sounds or accessory muscle use. SpO2<98> CARDIOVASCULAR: Regular rate and rhythm without noted murmurs ABDOMEN: Soft, non-tender, non-distended with bowel sounds. MUSCULOSKELETAL: No tenderness, deformities, or effusions noted on gross inspection. EXTREMITIES: No cyanosis, clubbing or edema. SKIN: Inspection of the skin reveals no rashes NEUROLOGIC: Alert and oriented x 4. Strength and sensation to light touch were grossly intact x 4, cranial nerves 2-12 are grossly intact PSYCH: Depressed affect Medical Decision Making Medical Decision Making MDM Narrative: 48-year-old female with history and clinical presentation, DDX: Concussion, medication side effect, infection/anemia/electrolyte abnormality. I reviewed all investigations and hematologic indices are negative for leukocytosis or left shift, no anemia or thrombocytopenia. Chemistry indices negative for NYLA, potassium mildly low at 3.0 and will be repleted with oral supplementation after obtaining magnesium level. TSH is noted to be 31.95. Urinalysis appears to be contaminated sample and will not treat unless urine culture comes back positive. Toxicology is otherwise benign for salicylate/acetaminophen, EtOH undetectable, lithium is noted to be within normal limits and otherwise positive for THC and suspect that the amphetamine positivity is secondary to medications. 2103: Patient is otherwise medically cleared for further evaluation by the behavioral team. She is nonfocal and at this time there is no indication to pursue CT of the head. Patient placed in physician observation because the patient needed more time for evaluation by the care team. 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 Please see the discussion above 05/05/23 20:01 05/05/23 20:01 Labs: Lab Results 05/05/23 Range/Units 20:01 WBC 7.8 (4.8-10.8) X10*3/uL RBC 4.51 (4.20-5.50) X10*6/uL Hgb 12.8 (12.0-16.0) g/dl Hct 39.8 (37.0-47.0) % MCV 88.2 (80.0-98.0) fL MCH 28.4 (27.0-33.0) pg MCHC 32.2 (31.0-35.0) g/dl RDW 16.5 H (11.0-16.0) % Plt Count 364 D (160-400) X10*3/uL MPV 8.5 L (9.4-12.3) fL Immature Gran % (Auto) 0.1 (0.0-0.4) % Neut % (Auto) 57.7 (45-73) % Lymph % (Auto) 31.3 (20-40) % [place] % (Auto) 6.9 (2-11) % Eos % (Auto) 3.2 (0-4) % Baso % (Auto) 0.8 (0-2) % Lymph # (Auto) 2.5 (1.2-4.9) X10*3/uL [place] # (Auto) 0.5 (0.1-1.2) X10*3/uL Eos # (Auto) 0.3 (0.0-0.4) X10*3/uL Baso # (Auto) 0.1 (0.0-0.2) X10*3/uL Abs Immat Gran (auto) 0.01 (0.00-0.03) X10*3/uL Absolute Neuts (auto) 4.5 (2.0-8.3) x10*3/uL Absolute Nucleated RBC 0.000 (0.0-0.012) X10*3/uL Nucleated RBC % (auto) 0.0 (0.0-0.2) /100WBC Sodium 137 (135-145) mmol/L Potassium 3.0 L (3.3-5.1) mmol/L Chloride 105 (96-108) mmol/L Carbon Dioxide 23 (22-29) mmol/L Anion Gap 12 (12-20) BUN 11 (9-16) mg/dL Creatinine 0.94 (0.5-1.4) mg/dL Estim Creat Clear Calc 67.0 Estimated GFR > 60 Random Glucose 100 (60-115) mg/dL Calcium 9.7 (8.4-10.2) mg/dL Total Bilirubin 0.3 (0.0-1.0) mg/dL AST 10 (5-31) U/L ALT 8 (0-31) U/L Alkaline Phosphatase 85 (39-117) U/L Total Protein 6.3 L (6.5-8.0) g/dL Albumin 3.8 (3.5-5.0) g/dL TSH 31.95 H (0.32-4.0) uIU/mL Urine Color Dark Yellow Urine Appearance Cloudy Urine pH 6.5 (5.0-9.0) Ur Specific [place] 1.020 (1.005-1.025) Urine Protein 30 (1+) H (Neg-Trace) mg/dL Urine Glucose (UA) Negative (Negative) mg/dL Urine Ketones Trace (Negative) mg/dL Urine Blood Negative (Negative) Urine Nitrite Negative (Negative) Ur Leukocyte Esterase Moderate (2+) H (Negative) Urine RBC 6-10 H (0-2) /HPF Urine WBC 11-20 (0-5) /HPF Ur Squamous Epith Cells 11-20 (0-2) /HPF Calcium Oxalate Crystal Present Urine Bacteria 3+ (None Seen) Hyaline Casts 0-2 (0-2) /LPF Salicylates < 5.0 L (15-30) mg/dL Urine Opiates Screen Not Detected (Not Detect) Urine Fentanyl Screen Not Detected (Not Detect) Acetaminophen < 17 (<30) mcg/mL Ur Barbiturates Screen Not Detected (Not Detect) Ur Phencyclidine Scrn Not Detected (Not Detect) Ur Amphetamines Screen POSITIVE H (Not Detect) U Benzodiazepines Scrn Not Detected (Not Detect) [place] 0.82 (0.60-1.20) mmol/L Urine Cocaine Screen Not Detected (Not Detect) U Marijuana (THC) Screen POSITIVE H (Not Detect) Ethyl Alcohol < 10 mg/dL External Record Review External record reviewed: Outpatient record, Prior outpatient labs and Prior outpatient radiology Chronic Conditions Patient?s care impacted by: Other Hypothyroid Critical Care Time Critical Care Time Critical Care Time: Yes Total Critical Care Time: 30 Attestation: I personally attest to this time spent taking care of the patient. Discharge Plan Discharge Clinical Impression: Hypothyroid, Bipolar disorder, Suicidal ideation Patient Disposition: Still a Patient Prescriptions: No Action clonidine HCl 0.1 mg tablet 0.1 mg PO TID PRN (Reason: Anxiety) clonazepam 0.5 mg tablet 0.5 mg PO TID PRN (Reason: Anxiety) melatonin 5 mg tablet 10 mg PO BEDTIME lithium carbonate 300 mg Tablet Extended Release 600 mg PO BEDTIME Qty: 0 0RF levothyroxine 112 mcg tablet 112 mcg PO DAILY@1700 lurasidone [Latuda] 20 mg tablet 20 mg PO BEDTIME trazodone 150 mg tablet 300 mg PO BEDTIME
[2023-05-05 20:05] LABS: MANUAL DIFF FLAG NO
[2023-05-05 20:08] LABS: Basophils Absolute Auto 0.1 X10*3/uL (0.0-0.2); Basophils Percent Auto 0.8 % (0-2); Eosinophils Absolute Auto 0.3 X10*3/uL (0.0-0.4); Eosinophils Percent Auto 3.2 % (0-4); Hematocrit 39.8 % (37.0-47.0); Hemoglobin 12.8 g/dl (12.0-16.0); Imm Gran Abs Auto 0.01 X10*3/uL (0.00-0.03); Imm Gran Pct Auto 0.1 % (0.0-0.4); Lymphocytes Absolute Auto 2.5 X10*3/uL (1.2-4.9); Lymphocytes Percent Auto 31.3 % (20-40); Mean Corpuscular HGB Conc 32.2 g/dl (31.0-35.0); Mean Corpuscular Hemoglobin 28.4 pg (27.0-33.0); Mean Corpuscular Volume 88.2 fL (80.0-98.0); Mean Platelet Volume 8.5 fL (9.4-12.3); Monocytes Absolute Auto 0.5 X10*3/uL (0.1-1.2); Monocytes Percent Auto 6.9 % (2-11); Neutrophils Absolute Auto 4.5 x10*3/uL (2.0-8.3); Neutrophils Percent Auto 57.7 % (45-73); Platelet Count 364 X10*3/uL (160-400); Red Blood Count 4.51 X10*6/uL (4.20-5.50); Red Cell Distribution Width 16.5 % (11.0-16.0); White Blood Count 7.8 X10*3/uL (4.8-10.8)
[2023-05-05 20:10] LABS: Appearance Urine Cloudy; Color Urine Dark Yellow; Glucose Urine UA Negative (Negative); Leukocyte Esterase Urine Moderate (2+) (Negative); Nitrite Urine Negative (Negative); PH 6.5 (5.0-9.0); UMIC TRIGGER UACC YES; Urine Blood Negative (Negative); Urine Ketones Trace mg/dL (Negative); Urine Protein 30 (1+) mg/dL (Neg-Trace)
[2023-05-05 20:16] LABS: Amphetamine Screen Urine POSITIVE (Not Detect); Barbiturates, Urine Not Detected (Not Detect); Benzodiazepines Screen Urine Not Detected (Not Detect); Cannabinoid Screen Urine POSITIVE (Not Detect); Cocaine Screen Urine Not Detected (Not Detect); Fentanyl, urine Not Detected (Not Detect); Opiate Screen Urine Not Detected (Not Detect); Phencyclidine Screen Urine Not Detected (Not Detect)
--- NOTE | 2023-05-05 20:20 | PHA.MEDREC ---
Pharmacy Consult ? Medication Reconciliation Pharmacy has completed the medication reconciliation. Reports all medications are the same from when she was discharge on 04/20. Patient reported she takes all of her medications at night including the thyriod medications. Both clonidine and clonazepam are prn medications. Haylie Sepulveda, PharmD
[2023-05-05 20:23] LABS: Ethanol < 10 mg/dL; Lithium 0.82 mmol/L (0.60-1.20)
[2023-05-05 20:31] LABS: Alanine Aminotransferase 8 U/L (0-31); Albumin Level 3.8 g/dL (3.5-5.0); Alkaline Phosphatase 85 U/L (39-117); Anion Gap 12 (12-20); Aspartate Amino Transferase 10 U/L (5-31); Bilirubin Total 0.3 mg/dL (0.0-1.0); Blood Urea Nitrogen 11 mg/dL (9-16); Calcium 9.7 mg/dL (8.4-10.2); Carbon Dioxide 23 mmol/L (22-29); Chloride 105 mmol/L (96-108); Estimated Glomerular Filt Rate > 60; Glucose Random 100 mg/dL (60-115); Sodium 137 mmol/L (135-145); Total Protein 6.3 g/dL (6.5-8.0)
[2023-05-05 20:39] LABS: Acetaminophen LAB < 17 mcg/mL (<30); Salicylate < 5.0 mg/dL (15-30)
[2023-05-05 20:41] LABS: Bacteria Urine 3+ (None Seen); Calcium Oxalate Crystals Urine Present; Hyaline Casts Urine 0-2 /LPF (0-2); UACC Culture Trigger YES
[2023-05-05 20:45] LABS: TSH reflex Free T4 31.95 uIU/mL (0.32-4.0)
[2023-05-05 21:02] LABS: Magnesium 2.2 mg/dL (1.6-2.6)
[2023-05-05 21:17] LABS: Free T4 (Free Thyroxine) 0.67 ng/dL (0.71-1.85)
[2023-05-05] MEDS: Potassium Chloride ER 20 MEQ TAB.ER.PRT 60 MEQ PO (22:08)
[2023-05-05 22:35] VITALS: BP 105/68; PULSE 60; RESP 18; TEMP 36.8; O2SAT 98
[2023-05-05] MEDS: Lurasidone HCl 20 MG TABLET PO (22:39)
[2023-05-05] MEDS: Lithium Carbonate ER 300 MG TABLET.ER 600 MG PO (22:39)
[2023-05-05] MEDS: clonazePAM 0.5 MG TABLET PO (22:39)
[2023-05-05] MEDS: traZODone HCL 100 MG TABLET 300 MG PO (23:34)
[2023-05-06 01:56] VITALS: BP 116/66; PULSE 61; RESP 17; TEMP 36.3; O2SAT 99
--- NOTE | 2023-05-06 05:03 | PC.NURSE ---
Patient slept through the night, no distress observed/reported, patient was tearful in the beginning night but later calmed down, engaged well with care team disposition pending psych consult, medication compliant, Klor-con 60 Meq at 2208, lab completed/resulted, VSS, will continue to monitor.
[2023-05-06 09:24] VITALS: BP 103/60; PULSE 53; RESP 15; O2SAT 97
--- NOTE | 2023-05-06 13:09 | MHC.CARE ---
Lam Parnell, patient's boyfriend, calls seeking disposition/ update. His contact is [phone]
[2023-05-06] MEDS: clonazePAM 0.5 MG TABLET PO (13:22)
[2023-05-06 14:03] VITALS: BP 109/68
[2023-05-06 14:04] VITALS: BP 108/81; BP 111/75
--- NOTE | 2023-05-06 14:29 | PC.NURSE ---
Angy has been in her room resting in bed for most of the shift. She does approach the nurses station when she has needs and is appropriate in asking for them to be met. Req PRN Clonidine this AM but HR was 54 and this was not given. Angy did not eat breakfast but did eat 100% of lunch. PRN Clonazepam given after lunch for anxiety. Orthostatic blood pressures taken, laying down 109/62 sitting 111/75 and standing 108/81. Angy denies SI/HI/AVH she does appear tearful at times. No behavioral concerns.
[2023-05-06 16:13] LABS: Folate 3.5 ng/mL (> or = 4.0); Vitamin B12 284 pg/mL (200-900)
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
[2023-05-06] MEDS: Levothyroxine Sodium 112 MCG TABLET PO (17:41)
[2023-05-06] MEDS: Folic Acid 1 MG TABLET 4 MG PO (17:42)
[2023-05-06 18:26] LABS: Potassium 3.5 mmol/L (3.3-5.1)
[2023-05-06] MEDS: Cyanocobalamin (Vitamin B-12) 1,000 MCG/ML VIAL 1000 MCG IM (18:46)
[2023-05-08 12:44] LABS: Thyroid Peroxidase Antibodies 807 IU/mL (<9)
== END 2023-05-06 19:43 | disposition home or self-care (01) ==
PROVIDERS: Social Worker; Emergency Provider Student in an Organized Health Care Education/Training Program; PCP Internal Medicine
DX: R45.851 Suicidal ideations (principal); F31.9 Bipolar disorder, unspecified; E03.9 Hypothyroidism, unspecified; F79 Unspecified intellectual disabilities; F43.10 Post-traumatic stress disorder, unspecified; F41.9 Anxiety disorder, unspecified; F12.90 Cannabis use, unspecified, uncomplicated; Z79.899 Other long term (current) drug therapy
CPT/HCPCS: 36415; 80053; 80143; 80178; 80179; 80307; 81001; 82607; 82746; 83735; 84132; 84439; 84443; 85025; 86376; 87086; 96372; 99284; S9485

== ENCOUNTER → 2023-05-05 18:35 | Outpatient (BNV) | payer OTHER, SELFPAY | PROVIDERS: Emergency Provider Student in an Organized Health Care Education/Training Program; PCP Internal Medicine; Visit Provider Social Worker | DX: F31.9 Bipolar disorder, unspecified (principal) | CPT/HCPCS: 99285 ==

== ENCOUNTER 2023-05-15 14:50 | Inpatient (IN) | payer OTHER, SELFPAY ==
[2023-05-15 15:26] VITALS: BP 123/80; PULSE 73; RESP 16; TEMP 36.3; O2SAT 94; BMI 27.4
--- NOTE | 2023-05-15 15:32 | ECG_ITS ---
Test Reason : weakness Blood Pressure : / mmHG Vent. Rate : 069 BPM Atrial Rate : 069 BPM P-R Int : 200 ms QRS Dur : 084 ms QT Int : 420 ms P-R-T Axes : 060 078 007 degrees QTc Int : 450 ms Normal sinus rhythm Nonspecific T wave abnormality Abnormal ECG When compared with ECG of 17-APR-2023 19:05, Significant changes have occurred Referred By: Aroldo Dowell Electronically Signed By:TRI SWAN MD
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
[2023-05-15 16:29] LABS: MANUAL DIFF FLAG NO
[2023-05-15 16:34] LABS: Basophils Absolute Auto 0.1 X10*3/uL (0.0-0.2); Basophils Percent Auto 0.8 % (0-2); Eosinophils Absolute Auto 0.4 X10*3/uL (0.0-0.4); Eosinophils Percent Auto 5.8 % (0-4); Hematocrit 46.1 % (37.0-47.0); Hemoglobin 14.7 g/dl (12.0-16.0); Imm Gran Abs Auto 0.01 X10*3/uL (0.00-0.03); Imm Gran Pct Auto 0.1 % (0.0-0.4); Lymphocytes Absolute Auto 2.5 X10*3/uL (1.2-4.9); Lymphocytes Percent Auto 33.1 % (20-40); Mean Corpuscular HGB Conc 31.9 g/dl (31.0-35.0); Mean Corpuscular Hemoglobin 28.9 pg (27.0-33.0); Mean Corpuscular Volume 90.7 fL (80.0-98.0); Mean Platelet Volume 8.5 fL (9.4-12.3); Monocytes Absolute Auto 0.6 X10*3/uL (0.1-1.2); Monocytes Percent Auto 7.4 % (2-11); Neutrophils Percent Auto 52.8 % (45-73); Platelet Count 354 X10*3/uL (160-400); Red Blood Count 5.08 X10*6/uL (4.20-5.50); Red Cell Distribution Width 15.9 % (11.0-16.0); White Blood Count 7.6 X10*3/uL (4.8-10.8)
[2023-05-15 16:48] LABS: Acetaminophen LAB < 17 mcg/mL (<30); Alanine Aminotransferase 8 U/L (0-31); Albumin Level 4.4 g/dL (3.5-5.0); Alkaline Phosphatase 88 U/L (39-117); Anion Gap 16 (12-20); Aspartate Amino Transferase 13 U/L (5-31); Bilirubin Total 0.3 mg/dL (0.0-1.0); Blood Urea Nitrogen 8 mg/dL (9-16); Calcium 9.9 mg/dL (8.4-10.2); Carbon Dioxide 22 mmol/L (22-29); Chloride 107 mmol/L (96-108); Creatinine Clr Calc Pharmacy 70.2; Estimated Glomerular Filt Rate > 60; Ethanol < 10 mg/dL; Glucose Random 74 mg/dL (60-115); Lipase 174 U/L (8-78); Potassium 3.5 mmol/L (3.3-5.1); Salicylate < 5.0 mg/dL (15-30); Sodium 141 mmol/L (135-145); Total Protein 7.5 g/dL (6.5-8.0)
[2023-05-15 17:09] LABS: TSH reflex Free T4 89.46 uIU/mL (0.32-4.0)
[2023-05-15 18:31] LABS: Free T4 (Free Thyroxine) 0.52 ng/dL (0.71-1.85)
[2023-05-15 20:42] LABS: Lithium < 0.10 mmol/L (0.60-1.20)
[2023-05-15 20:45] LABS: Appearance Urine Cloudy; Color Urine Yellow; Glucose Urine UA Negative (Negative); Leukocyte Esterase Urine Small (1+) (Negative); Nitrite Urine Negative (Negative); PH 6.5 (5.0-9.0); Specific Gravity - Urine 1.015 (1.005-1.025); UMIC TRIGGER UACC YES; Urine Blood Negative (Negative); Urine Ketones Negative (Negative); Urine Protein Negative (Neg-Trace)
[2023-05-15 20:46] LABS: Bacteria Urine 1+ (None Seen); Calcium Oxalate Crystals Urine Present; Hyaline Casts Urine 0-2 /LPF (0-2); RBC Urine 0-2 /HPF (0-2); UACC Culture Trigger YES
[2023-05-15 20:50] LABS: Amphetamine Screen Urine Not Detected (Not Detect); Barbiturates, Urine Not Detected (Not Detect); Benzodiazepines Screen Urine Not Detected (Not Detect); Cannabinoid Screen Urine POSITIVE (Not Detect); Cocaine Screen Urine Not Detected (Not Detect); Fentanyl, urine Not Detected (Not Detect); Opiate Screen Urine Not Detected (Not Detect); Phencyclidine Screen Urine Not Detected (Not Detect)
[2023-05-15] MEDS: Melatonin 3 MG TABLET 9 MG PO (20:50)
[2023-05-15] MEDS: traZODone HCL 100 MG TABLET 300 MG PO (20:50)
[2023-05-15] MEDS: clonazePAM 0.5 MG TABLET PO (20:50)
[2023-05-15] MEDS: cloNIDine HCL 0.1 MG TABLET PO (20:50)
[2023-05-15 20:51] VITALS: BP 110/72; PULSE 63; RESP 16; TEMP 36.5; O2SAT 95
[2023-05-16] MEDS: Levothyroxine Sodium 112 MCG TABLET PO (05:56)
--- NOTE | 2023-05-16 06:02 | PC.NURSE ---
Patient slept through the night, no distress observed/reported, behavior non concerning, engaged well with care team, disposition is section 12 inpatient bed search, VSS, labs completed/resulted/reviewed by the provider, medication compliant, will continue to monitor.
[2023-05-16 06:47] VITALS: BP 118/70; PULSE 62; RESP 16; TEMP 36.4; O2SAT 98
[2023-05-16 08:49] LABS: COVID-19 Test Negative (Negative); IDNOW Serial# 55D5AD1C
[2023-05-16 09:21] VITALS: RESP 18
[2023-05-16] MEDS: Thiamine HCL 100 MG TABLET PO (09:27)
[2023-05-16] MEDS: clonazePAM 0.5 MG TABLET PO ×2 (09:27→19:55)
[2023-05-16] MEDS: OLANZapine 10 MG TABLET PO ×2 (09:53→19:55)
[2023-05-16 15:30] VITALS: RESP 18
--- NOTE | 2023-05-16 16:04 | PC.NURSE ---
Angy was in her room resting for most of the shift. Open to inpatient admission and agreeing it was probably what I need Angy signed a CV. Angy was told she would be going to [facility] and she asked if there would be a roomate which the floor reported she would have. When Angy found out she began to scream loudly from her bed and repeated I want to go fucking home Angy was asked what we could do to help her calm down and she requested medicine PRN Clonazepam 0.5mg given per her available medications. Angy reported this wasn't enough and was called. 10mg Olanzapine given PO per PT request. Angy was able to calm down after this and slept. Latuda was not available during med pass this morning and once pharmacy brought it the medication was offered to Angy but she stated I'm sleeping in a very tearful manner. Visit with her was positive and several episodes throughout the day of tearful screaming about wanting to go home . No other behavioral concerns. Refused to discuss SI but denies HI/AVH.
[2023-05-16 17:27] VITALS: BP 124/84; PULSE 81; TEMP 35.9; O2SAT 98
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
[2023-05-16] MEDS: traZODone HCL 100 MG TABLET 300 MG PO (19:54)
[2023-05-16] MEDS: Melatonin 3 MG TABLET 9 MG PO (19:54)
[2023-05-16] MEDS: hydrOXYzine HCL 25 MG TABLET PO (19:55)
[2023-05-17] MEDS: Levothyroxine Sodium 112 MCG TABLET PO (06:24)
[2023-05-17 08:13] LABS: Alanine Aminotransferase 7 U/L (0-31); Albumin Level 3.6 g/dL (3.5-5.0); Alkaline Phosphatase 78 U/L (39-117); Anion Gap 12 (12-20); Aspartate Amino Transferase 14 U/L (5-31); Bilirubin Total 0.3 mg/dL (0.0-1.0); Blood Urea Nitrogen 9 mg/dL (9-16); Calcium 8.8 mg/dL (8.4-10.2); Carbon Dioxide 19 mmol/L (22-29); Chloride 111 mmol/L (96-108); Cholesterol 217 mg/dL (<200); Estimated Glomerular Filt Rate > 60; Glucose Fasting 86 mg/dL (60-99); HDL Cholesterol 41 mg/dL (>40); LDL Cholesterol Calculated 142 mg/dL (<100); Potassium 3.1 mmol/L (3.3-5.1); Sodium 139 mmol/L (135-145); Total Protein 6.1 g/dL (6.5-8.0); Triglycerides 170 mg/dL (<150)
[2023-05-17 08:45] VITALS: BP 112/81; PULSE 58; RESP 16; TEMP 36.2; O2SAT 95
[2023-05-17] MEDS: Lurasidone HCl 20 MG TABLET PO (09:29)
[2023-05-17] MEDS: Thiamine HCL 100 MG TABLET PO (09:29)
[2023-05-17] MEDS: clonazePAM 0.5 MG TABLET PO ×3 (09:48→19:35)
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
--- NOTE | 2023-05-17 11:21 | PM.EVENT ---
Event Note Date of Service: 05/17/23 Event Note: 48-year-old female admitted to Psychiatry with consult placed to hospitalist service for evaluation of hypokalemia, positive UA, and hypothyroidism. # hypokalemia-K 3.1. Replete with 20meq KCl PO and continue daily as pt has a history of low/low normal K. Recheck BMP am #Asymptomatic bacteriuria- hold on abx at this time. Await UC. Treat if positive culture >100,000 (not skin young) and symptoms present #Hypothyroidism- pt not compliant with levothyroxine. TSH 89.46, 0.52. Resume levothyroxine 112mcg. Recheck TSH/free T4 in 4-6 weeks Time Spent With Patient Time: Total time managing care of this patient today ____ minutes.
[2023-05-17] MEDS: OLANZapine 10 MG TABLET PO ×2 (11:33→19:34)
[2023-05-17] MEDS: hydrOXYzine HCL 25 MG TABLET PO ×2 (15:06→19:34)
[2023-05-17] MEDS: Potassium Chloride Packet 20 MEQ PACKET 40 MEQ PO (15:08)
[2023-05-17 18:47] VITALS: BP 127/86; PULSE 100; TEMP 35.9
[2023-05-17] MEDS: traZODone HCL 100 MG TABLET 300 MG PO (19:34)
[2023-05-17] MEDS: Melatonin 3 MG TABLET 9 MG PO (19:35)
[2023-05-18] MEDS: Levothyroxine Sodium 112 MCG TABLET PO (05:54)
[2023-05-18 08:00] VITALS: BP 114/69; PULSE 70; RESP 16; TEMP 36.1
[2023-05-18] MEDS: clonazePAM 0.5 MG TABLET PO ×3 (08:29→20:23)
[2023-05-18] MEDS: Lurasidone HCl 20 MG TABLET PO (08:29)
[2023-05-18] MEDS: hydrOXYzine HCL 25 MG TABLET PO ×2 (08:29→20:23)
[2023-05-18] MEDS: Thiamine HCL 100 MG TABLET PO (08:30)
[2023-05-18] MEDS: Potassium Chloride Packet 20 MEQ PACKET PO (08:30)
[2023-05-18 09:25] LABS: Anion Gap 15 (12-20); Blood Urea Nitrogen 11 mg/dL (9-16); Calcium 9.4 mg/dL (8.4-10.2); Carbon Dioxide 21 mmol/L (22-29); Chloride 109 mmol/L (96-108); Creatinine Clr Calc Pharmacy 67.2; Estimated Glomerular Filt Rate > 60; Glucose Random 98 mg/dL (60-115); Potassium 3.7 mmol/L (3.3-5.1); Sodium 141 mmol/L (135-145)
[2023-05-18] MEDS: Acetaminophen 325 MG TABLET 650 MG PO (09:26)
--- NOTE | 2023-05-18 09:33 | HO.PSYCHPN ---
Subjective Subjective Date of Service: 05/18/23 Reason For Visit: multiple complaints Subjective Notes: Section 12B Interim History: Reviewed in team and . Patient reports feeling fine today. Patient stated, I just want to go home. I'm taking my medication, I'm not suicidal . Patient reports she would like to leave and follow up with outpatient providers. denies SI/HI/VH/AH. Medication Compliance: Yes Side effects from medications: No Review of Systems Constitutional: Reports as per HPI Eyes: Reports as per HPI Reports as per HPI Cardiovascular: Reports as per HPI Respiratory: Reports as per HPI Gastrointestinal: Reports as per HPI Genitourinary: Reports as per HPI Musculoskeletal: Reports as per HPI Skin/Breast: Reports as per HPI Reports as per HPI Psychiatric: Reports as per HPI Endocrine: Reports as per HPI Hematologic/Lymphatic: Reports as per HPI Allergic/Immunologic: Reports as per HPI Mental Status Exam Mental Status Exam Narrative: Pt is alert and oriented; behavior is cooperative and calm; dressed in casual attire; mood is described as fine ; eye contact appropriate; Speech is normal rate, volume and prosody and not pressured; no psychomotor agitation/retardation present; thought process is organized; Thought content is on discharge; otherwise pertinent to relevant topics and without any delusional content, paranoid ideations or grandiosity; denies SI/HI. There is no evidence of perceptual disturbance. Patients insight and judgment are fair. Diagnostics Vital Signs (24Hr): Vital Signs - 24 hr 05/17/23 18:47 05/18/23 08:00 Temperature 96.7 F L 96.9 F Pulse Rate 100 70 Respiratory Rate 16 Blood Pressure 127/86 114/69 Oxygen Delivery Method Room Air BMI result Body Mass Index 27.4 Labs 05/15/23 16:24 05/18/23 08:48 Labs: Laboratory Results - last 48 hr 05/17/23 05/18/23 07:26 08:48 Sodium 139 141 Potassium 3.1 L 3.7 Chloride 111 H 109 H Carbon Dioxide 19 L 21 L Anion Gap 12 15 BUN 9 11 Creatinine 0.77 0.94 Estim Creat Clear Calc 82.0 67.2 Estimated GFR > 60 > 60 Random Glucose 98 Fasting Glucose 86 Calcium 8.8 D 9.4 D Total Bilirubin 0.3 AST 14 ALT 7 Alkaline Phosphatase 78 Total Protein 6.1 L Albumin 3.6 Triglycerides 170 H Cholesterol 217 H LDL Cholesterol, Calc 142 H HDL Cholesterol 41 Medications Medications Current Medications Acetaminophen (Acetaminophen 325 Mg Tablet) 650 mg PO Q6H PRN PRN Reason: Headache/Pain Mild Scale (1-3) Last Admin: 05/18/23 09:26 Dose: 650 mg Al Hydroxide/Mg Hydroxide (Magnesium Hydrox/Alum Hydrox 30 Ml Oral.Susp) 30 ml PO Q6H PRN PRN Reason: Heartburn/Nausea Clonazepam (Clonazepam 0.5 Mg Tablet) 0.5 mg PO TID PRN PRN Reason: Anxiety Last Admin: 05/18/23 08:29 Dose: 0.5 mg Hydroxyzine HCl (Hydroxyzine Hcl 25 Mg Tablet) 25 mg PO Q6H PRN PRN Reason: Anxiety Last Admin: 05/18/23 08:29 Dose: 25 mg Levothyroxine Sodium (Levothyroxine Sodium 112 Mcg Tablet) 112 mcg PO DAILY@0600 [facility] Last Admin: 05/18/23 05:54 Dose: 112 mcg Lurasidone HCl (Lurasidone Hcl 20 Mg Tablet) 20 mg PO DAILY [facility] [place] Last Admin: 05/18/23 08:29 Dose: 20 mg Magnesium Hydroxide (Milk Of Magnesia 30 Ml Oral.Susp) 30 ml PO DAILY PRN PRN Reason: Constipation Melatonin (Melatonin 3 Mg Tablet) 9 mg PO BEDTIME PRN PRN Reason: Insomnia Last Admin: 05/17/23 19:35 Dose: 9 mg Olanzapine (Olanzapine 10 Mg Tablet) 10 mg PO BID PRN PRN Reason: agitation Last Admin: 05/17/23 19:34 Dose: 10 mg Potassium Chloride (Potassium Chloride Packet 20 Meq Packet) 20 meq PO DAILY [facility] [place] Last Admin: 05/18/23 08:30 Dose: 20 meq Thiamine HCl (Thiamine Hcl 100 Mg Tablet) 100 mg PO DAILY [facility] [place] Last Admin: 05/18/23 08:30 Dose: 100 mg Trazodone HCl (Trazodone Hcl 100 Mg Tablet) 300 mg PO BEDTIME [facility] [place] Last Admin: 05/17/23 19:34 Dose: 300 mg Trazodone HCl (Trazodone Hcl 50 Mg Tablet) 50 mg PO BEDTIME MRX1 PRN PRN Reason: Insomnia Allergies Allergies Allergy/AdvReac Type Severity Reaction Status Date / Time methotrexate Allergy Rash Verified 05/05/23 17:37 warfarin [From Coumadin] Allergy Rash Verified 05/05/23 17:37 Assessment & Plan Assessment & Plan (1) Bipolar disorder: Status: Acute Code(s): F31.9 - Bipolar disorder, unspecified (2) PTSD (post-traumatic stress disorder): Status: Acute Code(s): F43.10 - Post-traumatic stress disorder, unspecified (3) Hypothyroidism: Status: Acute Code(s): E03.9 - Hypothyroidism, unspecified Plan Plan; admit to m5 section 12B re-evaluate fro CV 05/18 15 mn checks continue meds per ED protocol Increase zyprexa 10 mg BID PRN hallucinations/agitation continue levothryoxine 112 and recheck TSH in 4-6 weeks Potassium repletion_ as pt has been consistently dropping low- 40meq today the 20 meq daily Urine culture and sensitivity pending consider ECT as did well with in past collect collateral info d/c planning with team 05/18: Patient reports feeling fine today. Patient stated, I just want to go home. I'm taking my medication, I'm not suicidal . Patient reports she would like to leave and follow up with outpatient providers. denies SI/HI/VH/AH. Continue current tx plan. Patient educated on: diagnosis, medication risk/benefits and therapeutic strategies Informed Consent: understands and further education needed Reason for continued inpatient stay Substantial Risk for: med/psych decompensation Time Spent With Patient Time: Total time managing care of this patient today _30___ minutes.
[2023-05-18 18:00] VITALS: BP 132/89; PULSE 82; TEMP 36.4
[2023-05-18] MEDS: OLANZapine 10 MG TABLET PO (18:19)
[2023-05-18] MEDS: traZODone HCL 100 MG TABLET 300 MG PO (20:23)
[2023-05-18] MEDS: Melatonin 3 MG TABLET 9 MG PO (23:15)
[2023-05-19 06:00] VITALS: BP 106/70; PULSE 67; RESP 18; TEMP 36.6; O2SAT 95
[2023-05-19] MEDS: Levothyroxine Sodium 112 MCG TABLET PO (06:04)
[2023-05-19] MEDS: clonazePAM 0.5 MG TABLET PO ×3 (08:59→20:23)
[2023-05-19] MEDS: Lurasidone HCl 20 MG TABLET PO (08:59)
[2023-05-19] MEDS: Thiamine HCL 100 MG TABLET PO (08:59)
[2023-05-19] MEDS: hydrOXYzine HCL 25 MG TABLET PO (08:59)
[2023-05-19] MEDS: Potassium Chloride Packet 20 MEQ PACKET PO (08:59)
--- NOTE | 2023-05-19 09:33 | HO.PSYCHPN ---
Subjective Subjective Date of Service: 05/19/23 Reason For Visit: multiple complaints Subjective Notes: Section 12B Interim History: Reviewed in team and . Patient presents organized, calm, cooperative. Keeping to self. Patient stated, I'm not feeling depressed or suicidal . Pt reports she plans on following up with outpatient providers. Denies SI/HI/VH/AH. Medication Compliance: Yes Side effects from medications: No Attending Groups: No Review of Systems Constitutional: Reports as per HPI Eyes: Reports as per HPI Reports as per HPI Cardiovascular: Reports as per HPI Respiratory: Reports as per HPI Gastrointestinal: Reports as per HPI Genitourinary: Reports as per HPI Musculoskeletal: Reports as per HPI Skin/Breast: Reports as per HPI Reports as per HPI Psychiatric: Reports as per HPI Endocrine: Reports as per HPI Hematologic/Lymphatic: Reports as per HPI Allergic/Immunologic: Reports as per HPI Mental Status Exam Mental Status Exam Narrative: Pt is alert and oriented; behavior is cooperative and calm; dressed in casual attire; mood is described as good ; eye contact appropriate; Speech is normal rate, volume and prosody and not pressured; no psychomotor agitation/retardation present; thought process is organized and goal directed; Thought content is on tx; otherwise pertinent to relevant topics and without any delusional content, paranoid ideations or grandiosity; denies SI/HI. There is no evidence of perceptual disturbance. Patients insight and judgment are fair. Diagnostics Vital Signs (24Hr): Vital Signs - 24 hr 05/18/23 18:00 05/19/23 06:00 Temperature 97.6 F 97.8 F Pulse Rate 82 67 Respiratory Rate 18 Blood Pressure 132/89 106/70 Pulse Oximetry 95 Oxygen Delivery Method Room Air Mechanical Ventilation Room Air BMI result Body Mass Index 27.4 Labs 05/15/23 16:24 05/18/23 08:48 Labs: Laboratory Results - last 48 hr 05/18/23 08:48 Sodium 141 Potassium 3.7 Chloride 109 H Carbon Dioxide 21 L Anion Gap 15 BUN 11 Creatinine 0.94 Estim Creat Clear Calc 67.2 Estimated GFR > 60 Random Glucose 98 Calcium 9.4 D Medications Medications Current Medications Acetaminophen (Acetaminophen 325 Mg Tablet) 650 mg PO Q6H PRN PRN Reason: Headache/Pain Mild Scale (1-3) Last Admin: 05/18/23 09:26 Dose: 650 mg Al Hydroxide/Mg Hydroxide (Magnesium Hydrox/Alum Hydrox 30 Ml Oral.Susp) 30 ml PO Q6H PRN PRN Reason: Heartburn/Nausea Clonazepam (Clonazepam 0.5 Mg Tablet) 0.5 mg PO TID PRN PRN Reason: Anxiety Last Admin: 05/19/23 08:59 Dose: 0.5 mg Hydroxyzine HCl (Hydroxyzine Hcl 25 Mg Tablet) 25 mg PO Q6H PRN PRN Reason: Anxiety Last Admin: 05/19/23 08:59 Dose: 25 mg Levothyroxine Sodium (Levothyroxine Sodium 112 Mcg Tablet) 112 mcg PO DAILY@0600 [facility] Last Admin: 05/19/23 06:04 Dose: 112 mcg Lurasidone HCl (Lurasidone Hcl 20 Mg Tablet) 20 mg PO DAILY [facility] Last Admin: 05/19/23 08:59 Dose: 20 mg Magnesium Hydroxide (Milk Of Magnesia 30 Ml Oral.Susp) 30 ml PO DAILY PRN PRN Reason: Constipation Melatonin (Melatonin 3 Mg Tablet) 9 mg PO BEDTIME PRN PRN Reason: Insomnia Last Admin: 05/18/23 23:15 Dose: 9 mg Olanzapine (Olanzapine 10 Mg Tablet) 10 mg PO BID PRN PRN Reason: agitation Last Admin: 05/18/23 18:19 Dose: 10 mg Potassium Chloride (Potassium Chloride Packet 20 Meq Packet) 20 meq PO DAILY [facility] Last Admin: 05/19/23 08:59 Dose: 20 meq Thiamine HCl (Thiamine Hcl 100 Mg Tablet) 100 mg PO DAILY [facility] Last Admin: 05/19/23 08:59 Dose: 100 mg Trazodone HCl (Trazodone Hcl 100 Mg Tablet) 300 mg PO BEDTIME [facility] Last Admin: 05/18/23 20:23 Dose: 300 mg Trazodone HCl (Trazodone Hcl 50 Mg Tablet) 50 mg PO BEDTIME MRX1 PRN PRN Reason: Insomnia Allergies Allergies Allergy/AdvReac Type Severity Reaction Status Date / Time methotrexate Allergy Rash Verified 05/05/23 17:37 warfarin [From Coumadin] Allergy Rash Verified 05/05/23 17:37 Assessment & Plan Assessment & Plan (1) Bipolar disorder: Status: Acute Code(s): F31.9 - Bipolar disorder, unspecified (2) PTSD (post-traumatic stress disorder): Status: Acute Code(s): F43.10 - Post-traumatic stress disorder, unspecified (3) Hypothyroidism: Status: Acute Code(s): E03.9 - Hypothyroidism, unspecified Plan Plan; admit to m5 section 12B re-evaluate fro CV 05/18 15 mn checks continue meds per ED protocol Increase zyprexa 10 mg BID PRN hallucinations/agitation continue levothryoxine 112 and recheck TSH in 4-6 weeks Potassium repletion_ as pt has been consistently dropping low- 40meq today the 20 meq daily Urine culture and sensitivity pending consider ECT as did well with in past collect collateral info d/c planning with team 05/18: Patient reports feeling fine today. Patient stated, I just want to go home. I'm taking my medication, I'm not suicidal . Patient reports she would like to leave and follow up with outpatient providers. denies SI/HI/VH/AH. Continue current tx plan. 05/19: Patient presents organized, calm, cooperative. Keeping to self. Patient stated, I'm not feeling depressed or suicidal . Pt reports she plans on following up with outpatient providers. Plan to discharge pt tomorrow. Patient educated on: diagnosis, medication risk/benefits and therapeutic strategies Informed Consent: understands Reason for continued inpatient stay Substantial Risk for: stable for discharge Time Spent With Patient Time: Total time managing care of this patient today _30___ minutes.
[2023-05-19 18:00] VITALS: BP 112/74; TEMP 36.3; O2SAT 97
[2023-05-19] MEDS: Nystatin Powder 15 GM BOTTLE 1 APPL TOPICAL (20:11)
[2023-05-19] MEDS: traZODone HCL 50 MG TABLET PO (20:21)
[2023-05-19] MEDS: Melatonin 3 MG TABLET 9 MG PO (20:22)
[2023-05-19] MEDS: traZODone HCL 100 MG TABLET 300 MG PO (20:23)
[2023-05-20] MEDS: Levothyroxine Sodium 112 MCG TABLET PO (06:24)
[2023-05-20] MEDS: Lurasidone HCl 20 MG TABLET PO (08:12)
[2023-05-20] MEDS: Thiamine HCL 100 MG TABLET PO (08:13)
[2023-05-20] MEDS: Nystatin Powder 15 GM BOTTLE 1 APPL TOPICAL (08:13)
[2023-05-20] MEDS: Potassium Chloride Packet 20 MEQ PACKET PO (08:20)
[2023-05-20] MEDS: clonazePAM 0.5 MG TABLET PO (08:22)
[2023-05-20 08:33] VITALS: BP 112/59; PULSE 64; RESP 16; TEMP 36.2; O2SAT 95
--- NOTE | 2023-05-20 13:07 | P.DS_ITS ---
DS: Providers Provider Date of Service: 05/20/23 Date of admission: 05/16/23 14:25 Date of discharge: 05/20/23 Primary care physician: Jazzy Lacy MD Attending physician on admission: Tiffanie Gatica Attending physician on discharge: Eder Shine Discharging clinician: Bessie Crespo DS: Diagnosis Discharge Diagnosis (1) Bipolar disorder: Status: Acute (2) PTSD (post-traumatic stress disorder): Status: Acute (3) Hypothyroidism: Status: Acute DS: Medications Discharge Medications Home Medications: Home Medications Medication Instructions Recorded Confirmed trazodone 150 mg tablet 300 mg PO BEDTIME Insomnia 05/05/23 05/15/23 clonazepam 0.5 mg tablet 0.5 mg PO TID PRN Anxiety 05/15/23 05/15/23 levothyroxine 112 mcg tablet 112 mcg PO DAILY 05/15/23 05/15/23 lurasidone 20 mg tablet 20 mg PO QAM 05/15/23 05/15/23 melatonin 5 mg disintegrating 10 mg PO BEDTIME PRN Insomnia 05/15/23 05/15/23 tablet thiamine HCl (vitamin B1) 100 mg 100 mg PO DAILY 05/15/23 05/15/23 tablet Mental Status Exam Mental Status Exam Narrative: Pt is alert and oriented; behavior is cooperative, friendly and calm; dressed in casual attire; mood is described as good ; eye contact appropriate; Speech is normal rate, volume and prosody and not pressured; no psychomotor agitation/retardation present; thought process is organized and goal directed; Thought content is on tx; otherwise pertinent to relevant topics and without any delusional content, paranoid ideations or grandiosity; denies SI/HI. There is no evidence of perceptual disturbance. Patients insight and judgment are fair. Data Data Completed and Pending Completed studies during hospitalization [Text1]: 05/15/23 05/15/23 05/15/23 16:24 20:12 20:30 WBC 7.6 RBC 5.08 Hgb 14.7 Hct 46.1 MCV 90.7 MCH 28.9 MCHC 31.9 RDW 15.9 Plt Count 354 MPV 8.5 L Immature Gran % (Auto) 0.1 Neut % (Auto) 52.8 Lymph % (Auto) 33.1 [place] % (Auto) 7.4 Eos % (Auto) 5.8 H Baso % (Auto) 0.8 Lymph # (Auto) 2.5 [place] # (Auto) 0.6 Eos # (Auto) 0.4 Baso # (Auto) 0.1 Abs Immat Gran (auto) 0.01 Absolute Neuts (auto) 4.0 Absolute Nucleated RBC 0.000 Nucleated RBC % (auto) 0.0 Sodium 141 Potassium 3.5 Chloride 107 Carbon Dioxide 22 Anion Gap 16 BUN 8 L Creatinine 0.90 Estim Creat Clear Calc 70.2 Estimated GFR > 60 Random Glucose 74 Fasting Glucose Calcium 9.9 Total Bilirubin 0.3 AST 13 ALT 8 Alkaline Phosphatase 88 Total Protein 7.5 Albumin 4.4 Triglycerides Cholesterol LDL Cholesterol, Calc HDL Cholesterol Lipase 174 H TSH 89.46 H Free T4 0.52 L Urine Color Yellow Urine Appearance Cloudy Urine pH 6.5 Ur Specific [place] 1.015 Urine Protein Negative Urine Glucose (UA) Negative Urine Ketones Negative Urine Blood Negative Urine Nitrite Negative Ur Leukocyte Esterase Small (1+) H Urine RBC 0-2 Urine WBC 11-20 H Ur Squamous Epith Cells 6-10 Calcium Oxalate Crystal Present Urine Bacteria 1+ Hyaline Casts 0-2 Salicylates < 5.0 L Urine Opiates Screen Cancelled Not Detected Urine Fentanyl Screen Cancelled Not Detected Acetaminophen < 17 Ur Barbiturates Screen Cancelled Not Detected Ur Phencyclidine Scrn Cancelled Not Detected Ur Amphetamines Screen Cancelled Not Detected U Benzodiazepines Scrn Cancelled Not Detected [place] < 0.10 L Urine Cocaine Screen Cancelled Not Detected U Marijuana (THC) Screen Cancelled POSITIVE H Ethyl Alcohol < 10 COVID-19 ([facility]) COVID-19 Clin Com 05/16/23 05/17/23 05/18/23 08:22 07:26 08:48 WBC RBC Hgb Hct MCV MCH MCHC RDW Plt Count MPV Immature Gran % (Auto) Neut % (Auto) Lymph % (Auto) [place] % (Auto) Eos % (Auto) Baso % (Auto) Lymph # (Auto) [place] # (Auto) Eos # (Auto) Baso # (Auto) Abs Immat Gran (auto) Absolute Neuts (auto) Absolute Nucleated RBC Nucleated RBC % (auto) Sodium 139 141 Potassium 3.1 L 3.7 Chloride 111 H 109 H Carbon Dioxide 19 L 21 L Anion Gap 12 15 BUN 9 11 Creatinine 0.77 0.94 Estim Creat Clear Calc 82.0 67.2 Estimated GFR > 60 > 60 Random Glucose 98 Fasting Glucose 86 Calcium 8.8 D 9.4 D Total Bilirubin 0.3 AST 14 ALT 7 Alkaline Phosphatase 78 Total Protein 6.1 L Albumin 3.6 Triglycerides 170 H Cholesterol 217 H LDL Cholesterol, Calc 142 H HDL Cholesterol 41 Lipase TSH Free T4 Urine Color Urine Appearance Urine pH Ur Specific [place] Urine Protein Urine Glucose (UA) Urine Ketones Urine Blood Urine Nitrite Ur Leukocyte Esterase Urine RBC Urine WBC Ur Squamous Epith Cells Calcium Oxalate Crystal Urine Bacteria Hyaline Casts Salicylates Urine Opiates Screen Urine Fentanyl Screen Acetaminophen Ur Barbiturates Screen Ur Phencyclidine Scrn Ur Amphetamines Screen U Benzodiazepines Scrn [place] Urine Cocaine Screen U Marijuana (THC) Screen Ethyl Alcohol COVID-19 ([facility]) Negative COVID-19 Clin Com See Note 05/15/23 Unknown Urine clean catch - Urine hath[place] top Urine Culture - Final DS: Summary Hospital Course Hospital Course: Patient is a 48 year-old woman with hx of Bipolar Disorder who was recently discharged from after treatment of depression, passive SI. She sustained a fall while on the unit. She developed intractable vomiting worsening already low potassium and having NYLA. She was transferred to medical floor for intractable vomiting and NYLA. She had [address] one 04/17, 04/19 did not show intracraneal pathology. Pt was brought by back to ED on 05/15 due to increase concern in terms of confusions, difficulty talking, mixing words, typing/coordin ation, unsteady feet. Hitting herself, making nonsensical statements and expressing suicidal thoughts. Pts had noticed confusion and difficulty talking. She has been non compliant with medications including levothyroxine in interim while at home. In ED she was taken off lithium due to confusion tremor. She has been making statements that she wants to . Stating she wants to see her mother when she dies. She is in bed when seen today; soft spoken mumbling at times, disheveled and unkempt. She was told that she is on a section 12 and that at this time I could not accept her conditional voluntary; she cried stating she wanted to go home; says she already signed a 3 day notice which I explained to her I could not accept at this time but that she would be re- evaluated tomorrow. I encouraged her to eat, stay hydrated and take her medication to get better. She reluctantly agreed. Pt has been wailing loudly off and on throughout the day in her room. During hospital course, Patient reports feeling fine . Patient stated, I just want to go home. I'm taking my medication, I'm not suicidal . Patient reports she would like to leave and follow up with outpatient providers. denies S I/HI/VH/AH. Remains on Section 12. T/W and mental health social worker met with pt. Patient presents organized, calm, cooperative. Keeping to self. Patient stated, I'm not feeling depressed or suicidal . Pt reports she plans on following up with outpatient providers. Plan to discharge home and follow up outpatient. Patient denies any suicidal or self harm thoughts/plans. Denies HI/VH/AH. Time spent discussing smoking cessation with patient: 3 to 10 minutes Status at Discharge Cognitive/behavioral status at discharge: Patient was interviewed prior to discharge and found to be fully oriented and without any SI or HI. Patient has insight and demonstrates good judgment in terms of wanting to pursue treatment. Patient is not in imminent risk of harm to self or others and has a safety plan that includes presenting to the closest ER or calling 911 if feeling unsafe. Patient has been observed closely by nursing and unit staff throughout admission; patient has not engaged in any behaviors that suggest dangerousness to self or others and has demonstrated appropriate behaviors and impulse control. Functional status at discharge: independent ambulation Overall status at discharge: patient is back to baseline Time Spent with Patient Time attestation: Total time managing care of this patient today _30___ minutes. Time spent: Less than 30 minutes Discharge Plan Discharge Anticipated Discharge Date/Time: 05/20/23 14:00 Patient Disposition: Home, Self-Care Discharge Diagnosis: Bipolar d/o, PTSD Referrals: [facility]: Heidy Espinosa (psychiatry) [Other] - 06/09/23 11:00 am (Hospital discharge appointment with psychiatric medication provider Appointment is in person at [facility]) [facility] [Other] (Walk in if needed) Jazzy Lacy MD [Primary Care Provider] - (Release of information not signed; no records faxed) Discharge Medications: New nystatin 100,000 unit/gram Powder 1 appl topical BID 30 Days Qty: 15 0RF Protocol: Apply to: Apply to: affected areas Continued clonazepam 0.5 mg tablet 0.5 mg PO TID PRN (Reason: Anxiety) thiamine HCl (vitamin B1) 100 mg tablet 100 mg PO DAILY melatonin 5 mg tablet,disintegrating 10 mg PO BEDTIME PRN (Reason: Insomnia) levothyroxine 112 mcg tablet 112 mcg PO DAILY lurasidone 20 mg tablet 20 mg PO QAM 30 Days Qty: 30 0RF trazodone 150 mg tablet 300 mg PO BEDTIME Discharge Orders: Discharge Order (Routine); Ordered 05/20/23 Ordered By: Bessie Crespo Diet: Regular diet Activity on Discharge: As tolerated Stand Alone Forms: Patient Portal Discharge page, Community Support Care Plan Goals: Maintain mood and safe behaviors Take medications as prescribed Practice coping skills Continue with outpatient providers and reach out to them as needed Health Concerns: Mood stability and behaviors Plan of Treatment: Follow up with your PCP, psychiatric provider and other outpatient providers regarding above concerns Take medications as prescribed Assessment: Patient was interviewed prior to discharge and found to be fully oriented and without any SI or HI. Patient has insight and demonstrates good judgment in terms of wanting to pursue treatment. Patient is not in imminent risk of harm to self or others and has a safety plan that includes presenting to the closest ER or calling 911 if feeling unsafe. Patient has been observed closely by nursing and unit staff throughout admission; patient has not engaged in any behaviors that suggest dangerousness to self or others and has demonstrated appropriate behaviors and impulse control.
== END 2023-05-20 13:59 | disposition home or self-care (01) | DRG 753 ==
LOC: HO.ED 05-16 00:24 → HO.PM5 05-16 14:35
PROVIDERS: Physician Assistant; Physician Assistant Medical; Admitting Provider Psychiatry & Neurology Psychiatry; Emergency Provider Internal Medicine; PCP Internal Medicine; Responsible Provider Registered Nurse; Visit Provider Psychiatry & Neurology Psychiatry
DX: F31.9 Bipolar disorder, unspecified (principal); R45.851 Suicidal ideations; F79 Unspecified intellectual disabilities; E87.6 Hypokalemia; E03.9 Hypothyroidism, unspecified; Z91.148 Patient's other noncompliance with medication regimen for other reason; Z20.822 Contact with and (suspected) exposure to COVID-19; Z79.890 Hormone replacement therapy; Z79.899 Other long term (current) drug therapy
CPT/HCPCS: 36415; 80048; 80053; 80061; 80143; 80178; 80179; 80307; 81001; 83690; 84439; 84443; 85025; 87086; 87635; 93005; 99285; S9485

== ENCOUNTER → 2023-05-16 14:25 | Outpatient (BNV) | payer OTHER, SELFPAY | PROVIDERS: Admitting Provider Psychiatry & Neurology Psychiatry; Emergency Provider Internal Medicine; PCP Internal Medicine; Visit Provider Clinical Nurse Specialist Psychiatric/Mental Health | DX: F31.4 Bipolar disorder, current episode depressed, severe, without psychotic features (principal); F43.11 Post-traumatic stress disorder, acute; E03.9 Hypothyroidism, unspecified | CPT/HCPCS: 90792; 99231; 99232; 99238 ==

== ENCOUNTER → 2023-05-16 14:25 | Outpatient (BNV) | payer OTHER, SELFPAY | PROVIDERS: Admitting Provider Psychiatry & Neurology Psychiatry; Emergency Provider Internal Medicine; PCP Internal Medicine; Responsible Provider Registered Nurse; Visit Provider Psychiatry & Neurology Psychiatry | DX: F31.4 Bipolar disorder, current episode depressed, severe, without psychotic features (principal); F43.11 Post-traumatic stress disorder, acute; E03.9 Hypothyroidism, unspecified | CPT/HCPCS: 99231 ==

== ENCOUNTER 2023-09-24 18:42 | Emergency (ER) | payer MEDICARE, SELFPAY ==
--- NOTE | ~2023-09-24 | XR_ITS ---
EXAMINATION: XR LUMBOSACRAL SPINE CLINICAL INFORMATION: Pain. COMPARISON: None available. TECHNIQUE: Three views of the lumbosacral spine. FINDINGS: There is mild curvature of the lumbar spine convex to the right on the AP image. The lateral alignment is normal. There is the disc spaces are maintained. There is mild L4-L5 and L5-S1 facet degenerative change. There is no fracture. Soft tissues are unremarkable XR/XR lumbar spine 2-3V IMPRESSION: Mild curvature of the lumbar spine convex to the right. Mild facet degenerative change.
--- NOTE | 2023-09-24 19:54 | ED.URI ---
HPI - URI/Sore Throat General Chief Complaint: Upper Respiratory Symptoms Stated Complaint: bilateral ear pain,congested cough Time Seen by Provider: 09/24/23 21:33 Source: patient, RN notes reviewed and old records reviewed Mode of arrival: ambulatory Limitations: no limitations History of Present Illness HPI Narrative: 48-year-old female with past medical history significant for bipolar disorder, intellectual disability, PTSD presents for evaluation of bilateral ear pain, cough, nausea Per her and the boyfriend, the patient's symptoms started about 1 week ago She reports intermittent chest pains during this time She also endorses cough There have not been any fevers or chills or other sick contacts. The patient is a fairly poor historian She has no other complaints or concerns at this time Related Data Home Medications Medication Instructions Recorded Confirmed trazodone 150 mg tablet 300 mg PO BEDTIME Insomnia 05/05/23 09/24/23 clonazepam 0.5 mg tablet 0.5 mg PO TID PRN Anxiety 05/15/23 09/24/23 levothyroxine 112 mcg tablet 112 mcg PO DAILY 05/15/23 09/24/23 melatonin 5 mg disintegrating 10 mg PO BEDTIME PRN Insomnia 05/15/23 09/24/23 tablet Previous Rx's Medication Instructions Recorded lurasidone 20 mg tablet 20 mg PO QAM 30 days #30 tabs 05/20/23 nystatin 100,000 unit/gram topical 1 appl topical BID 30 days #15 05/20/23 powder grams potassium chloride 20 mEq oral 20 meq PO DAILY #3 ea 09/25/23 packet Allergies Allergy/AdvReac Type Severity Reaction Status Date / Time methotrexate Allergy Rash Verified 09/24/23 19:55 warfarin [From Coumadin] Allergy Rash Verified 09/24/23 19:55 Review of Systems Constitutional: Constitutional: Reports body ache(s), Denies chills, Denies fever(s) and Reports weakness Eyes: Eyes: Denies blurry vision ENT: Denies sore throat Cardiovascular: Cardiovascular: Reports chest pain and Reports dyspnea Respiratory: Respiratory: Reports cough, Reports dyspnea and Reports other Gastrointestinal: Gastrointestinal: Denies abdominal pain, Reports nausea and Denies vomiting Musculoskeletal: Musculoskeletal: Reports back pain Integumentary/Breasts: Skin/Breast: Denies rash Neurologic: Reports weakness PMFSH Past Medical History Medical History Intellectual disability PTSD (post-traumatic stress disorder) Anxiety Hypothyroidism Depression Social History Social History Household Members: Unknown / Unable to assess Housing: Unknown / Unable to assess Do you presently have visiting nurse or other home services: No Comment: 1:1 sitter Patient Tobacco Use Status: Never used Tobacco Smoked in Last 30 Days: No Use of substances other than those prescribed or required for medical reasons: No Substance Use Type: Marijuana Advance Directives: No Advance Directives Information Provided: No Patient : No service: No Sexual orientation: Straight/Heterosexual Physical Exam Vital Signs: Vital Signs: Last Vital Signs Temp 98.5 F 09/25/23 04:17 Pulse 82 09/25/23 04:17 Resp 16 09/25/23 04:17 BP 116/88 09/25/23 04:17 Pulse Ox 90 L 09/25/23 04:17 O2 Del Method Room Air 09/25/23 04:17 BMI result Body Mass Index 24.0 Const: General: healthy appearing, comfortable, no acute distress, alert and awake Nutritional Appearance: well nourished Orientation/consciousness: patient oriented x3 HEENT: Other: Right TM pearly white without erythema or effusion. Left TM with mild cerumen buildup over visualized portions of the TM is not erythematous Head: Yes normocephalic and Yes atraumatic Eyes: Eyelids: Yes eyelids normal Conjunctivae: conjunctivae normal Sclerae: sclerae normal Corneas: corneas normal Pupils: Equal, round and reactive pupils present EOM: EOMs intact bilaterally Neck: Neck: Yes full ROM Resp: Effort & Inspection: normal respiratory effort, able to speak in complete sentences, no audible wheezes and not labored Auscultation: clear to auscultation bilaterally Cardio: Rate: regular rate Rhythm: regular rhythm GI: Inspection: No distended Palpation (GI): Soft to palpation, not firm, nontender, no guarding and not rigid Skin: General skin exam: elasticity normal Neuro: General: patient oriented x3 Cranial nerves: Yes Equal, round and reactive pupils present and Yes Bilaterally intact EOM present Cognition (Neuro): normal cognition Course Course Course Narrative: This is a rapid medical exam. Deferred additional HPI, ROS, PE to primary provider. 48yo female with history of bipolar disorder, PTSD here with cough, ear pain, vomiting x several days. Will obtain labs, viral testing VSS Reevaluation(s) Reevaluation #1: 2054-K 2.6. Added MG. Ordered EKG, personnel monitor and replacement IV. Charge nurse ryne notified Reevaluation #2: Discussed patient's case with Cardiology, Dr. Hammer given the EKG changes. Dr. Hammer agrees with repeating the potassium, repeating troponin when appropriate and repeated the EKG after complete potassium supplementation. If there are no significant changes the patient can safely be discharged from a cardiology perspective. Patient is noted to be hypothyroid with an undetectable T4. She is already on levothyroxine 200 mcg daily. I suspect some degree of noncompliance versus malabsorption. This can be followed up on outpatient basis. Time: 01:13 Medications Administered Generic Name Dose Route Start Last Admin Trade Name Freq PRN Reason Stop Dose Admin Trazodone HCl 300 mg 09/24/23 23:45 09/24/23 23:54 Trazodone Hcl 100 Mg Tablet PO 300 mg BEDTIME CHALO Administration Discontinued Medications Generic Name Dose Route Start Last Admin Trade Name Freq PRN Reason Stop Dose Admin Potassium Chloride 10 meq in 100 mls @ 100 mls/hr 09/24/23 21:00 09/25/23 04:03 Potassium Chloride/H20 IV 09/25/23 00:59 Infused Q1H CHALO Infusion Potassium Chloride 40 meq 09/24/23 21:52 09/24/23 22:04 Potassium Chloride Packet 20 Meq Packet PO 09/24/23 21:53 40 meq ONCE ONE Administration Medical Decision Making Medical Decision Making MDM Narrative: 48-year-old female presents for evaluation of flu-like symptoms. She tested positive for RSV. Her vital signs are stable. However she had an EKG ordered which showed T-wave inversions in the inferior and the lateral leads which were new when compared to May of last year. I re-evaluated the patient and specifically asked if she was experiencing any chest pain currently. She reports ?a little bit. ? However she rates it a 0/10. A repeat EKG showed no changes. I added on a troponin level. The patient's potassium is noted to be low at 2.6 which is fairly chronic for her however slightly lower than her chronic hypokalemia. We will treat the hypokalemia and repeat EKG as well as troponin. -my interpretation of EKG at 4 in the morning: Normal sinus rhythm, heart rate 86, no ST segment depression or elevation, nonspecific T-wave inversion in lateral leads, QTC 483, no acute changes from previous 2 EKGs from earlier today. Troponin x2 negative Differential Diagnosis Differential Diagnoses: The differential diagnosis associated with the presentation includes Hypokalemia ACS RSV Influenza COVID-19 Pneumonia Admission/Observation Consideration of admission/observation: Escalation of care including admission/observation considered Patient does have EKG changes with hypokalemia but is able to supplement p.o. upon discharge Consult Healthcare Provider Management of the patient was discussed with: Wildlife Science Professor (Cardiology, Dr. Hammer) Lab Data MDM Lab Attestation statement: I reviewed the patient's lab results. Mild elevation of hemoglobin and hematocrit which may be related to some degree of dehydration. There is no leukocytosis pain has normal platelet count. Sodium was normal at 139. Potassium is low at 2.6 as mentioned above. Chloride INR within normal limits. CO2 is low at 18. Renal function is within normal limits. Patient's magnesium within normal limits. Troponin is normal at 2.8. TSH with reflex T4 is pending 09/24/23 20:28 09/24/23 20:28 Labs: Lab Results 09/24/23 09/24/23 09/24/23 Range/Units 20:06 20:28 21:57 WBC 7.1 (4.8-10.8) X10*3/uL RBC 5.65 H (4.20-5.50) X10*6/uL Hgb 16.3 H (12.0-16.0) g/dl Hct 47.9 H (37.0-47.0) % MCV 84.8 (80.0-98.0) fL MCH 28.8 (27.0-33.0) pg MCHC 34.0 (31.0-35.0) g/dl RDW 16.9 H (11.0-16.0) % Plt Count 201 D (160-400) X10*3/uL MPV 9.8 (9.4-12.3) fL Immature Gran % (Auto) 0.1 (0.0-0.4) % Neut % (Auto) 57.0 (45-73) % Lymph % (Auto) 31.3 (20-40) % [place] % (Auto) 9.9 (2-11) % Eos % (Auto) 1.3 (0-4) % Baso % (Auto) 0.4 (0-2) % Lymph # (Auto) 2.2 (1.2-4.9) X10*3/uL [place] # (Auto) 0.7 (0.1-1.2) X10*3/uL Eos # (Auto) 0.1 (0.0-0.4) X10*3/uL Baso # (Auto) 0.0 (0.0-0.2) X10*3/uL Abs Immat Gran (auto) 0.01 (0.00-0.03) X10*3/uL Absolute Neuts (auto) 4.0 (2.0-8.3) x10*3/uL Absolute Nucleated RBC 0.000 (0.0-0.012) X10*3/uL Nucleated RBC % (auto) 0.0 (0.0-0.2) /100WBC Sodium 139 (135-145) mmol/L Potassium 2.6 L* (3.3-5.1) mmol/L Chloride 108 (96-108) mmol/L Carbon Dioxide 18 L (22-29) mmol/L Anion Gap 16 (12-20) BUN 9 (9-16) mg/dL Creatinine 1.14 (0.5-1.4) mg/dL Estim Creat Clear Calc 48.8 Estimated GFR 50 Random Glucose 107 (60-115) mg/dL Calcium 9.6 (8.4-10.2) mg/dL Magnesium 2.0 (1.6-2.6) mg/dL Troponin I High Sens 2.8 (<3.5-17.0) ng/L TSH > 100.00 H (0.32-4.0) uIU/mL Free T4 < 0.42 L (0.71-1.85) ng/dL Influenza Type A (PCR) NEGATIVE (Negative) Influenza Type B (PCR) NEGATIVE (Negative) RSV RNA Qual (PCR) POSITIVE A (Negative) SARS-CoV-2 RNA (RT-PCR) NEGATIVE (Negative) 09/25/23 Range/Units 02:22 WBC (4.8-10.8) X10*3/uL RBC (4.20-5.50) X10*6/uL Hgb (12.0-16.0) g/dl Hct (37.0-47.0) % MCV (80.0-98.0) fL MCH (27.0-33.0) pg MCHC (31.0-35.0) g/dl RDW (11.0-16.0) % Plt Count (160-400) X10*3/uL MPV (9.4-12.3) fL Immature Gran % (Auto) (0.0-0.4) % Neut % (Auto) (45-73) % Lymph % (Auto) (20-40) % [place] % (Auto) (2-11) % Eos % (Auto) (0-4) % Baso % (Auto) (0-2) % Lymph # (Auto) (1.2-4.9) X10*3/uL [place] # (Auto) (0.1-1.2) X10*3/uL Eos # (Auto) (0.0-0.4) X10*3/uL Baso # (Auto) (0.0-0.2) X10*3/uL Abs Immat Gran (auto) (0.00-0.03) X10*3/uL Absolute Neuts (auto) (2.0-8.3) x10*3/uL Absolute Nucleated RBC (0.0-0.012) X10*3/uL Nucleated RBC % (auto) (0.0-0.2) /100WBC Sodium (135-145) mmol/L Potassium (3.3-5.1) mmol/L Chloride (96-108) mmol/L Carbon Dioxide (22-29) mmol/L Anion Gap (12-20) BUN (9-16) mg/dL Creatinine (0.5-1.4) mg/dL Estim Creat Clear Calc Estimated GFR Random Glucose (60-115) mg/dL Calcium (8.4-10.2) mg/dL Magnesium (1.6-2.6) mg/dL Troponin I High Sens 3.1 (<3.5-17.0) ng/L TSH (0.32-4.0) uIU/mL Free T4 (0.71-1.85) ng/dL Influenza Type A (PCR) (Negative) Influenza Type B (PCR) (Negative) RSV RNA Qual (PCR) (Negative) SARS-CoV-2 RNA (RT-PCR) (Negative) Independent Interpretation I performed an independent interpretation of an: EKG (T-wave inversions in the inferior and lateral leads as described above. No ST segment elevation IA) and Plain X-Ray (Scoliosis of the lumbar spine to the right) Radiology Impression Discussion of test interpretation with radiology: I have reviewed the radiologist's reading. (Mild curvature of the lumbar spine to the right) Discharge Plan Discharge Clinical Impression: RSV infection, Acute electrocardiogram changes, Acute hypokalemia, Hypothyroidism Patient Disposition: Home, Self-Care Instructions: Respiratory Syncytial Virus (ED), Hypokalemia (ED) Additional Instructions: Your potassium was 2.6 today and was supplemented with IV and oral potassium. I recommend that you take potassium 20 mEq daily for the next 3 days You should have your potassium levels rechecked in 1 week You tested positive for RSV which is likely the cause of your body aches, cough and nausea You may use Tylenol for fevers and body aches Follow-up with your primary doctor for your hypothyroidism Prescriptions: New potassium chloride 20 mEq packet 20 meq PO DAILY Qty: 3 0RF No Action clonazepam 0.5 mg tablet 0.5 mg PO TID PRN (Reason: Anxiety) melatonin 5 mg tablet,disintegrating 10 mg PO BEDTIME PRN (Reason: Insomnia) levothyroxine 112 mcg tablet 112 mcg PO DAILY nystatin 100,000 unit/gram Powder 1 appl topical BID 30 Days Qty: 15 0RF Protocol: Apply to: Apply to: affected areas lurasidone 20 mg tablet 20 mg PO QAM 30 Days Qty: 30 0RF trazodone 150 mg tablet 300 mg PO BEDTIME
[2023-09-24 19:55] VITALS: BP 105/82; PULSE 99; RESP 18; TEMP 36.6; O2SAT 93; BMI 24.0
[2023-09-24 20:31] LABS: MANUAL DIFF FLAG NO
[2023-09-24 20:33] LABS: Basophils Percent Auto 0.4 % (0-2); Eosinophils Absolute Auto 0.1 X10*3/uL (0.0-0.4); Eosinophils Percent Auto 1.3 % (0-4); Hematocrit 47.9 % (37.0-47.0); Hemoglobin 16.3 g/dl (12.0-16.0); Imm Gran Abs Auto 0.01 X10*3/uL (0.00-0.03); Imm Gran Pct Auto 0.1 % (0.0-0.4); Lymphocytes Absolute Auto 2.2 X10*3/uL (1.2-4.9); Lymphocytes Percent Auto 31.3 % (20-40); Mean Corpuscular Hemoglobin 28.8 pg (27.0-33.0); Mean Corpuscular Volume 84.8 fL (80.0-98.0); Mean Platelet Volume 9.8 fL (9.4-12.3); Monocytes Absolute Auto 0.7 X10*3/uL (0.1-1.2); Monocytes Percent Auto 9.9 % (2-11); Platelet Count 201 X10*3/uL (160-400); Red Blood Count 5.65 X10*6/uL (4.20-5.50); Red Cell Distribution Width 16.9 % (11.0-16.0); White Blood Count 7.1 X10*3/uL (4.8-10.8)
[2023-09-24 20:48] LABS: Anion Gap 16 (12-20); Blood Urea Nitrogen 9 mg/dL (9-16); Calcium 9.6 mg/dL (8.4-10.2); Carbon Dioxide 18 mmol/L (22-29); Chloride 108 mmol/L (96-108); Creatinine Clr Calc Pharmacy 48.8; Estimated Glomerular Filt Rate 50; Glucose Random 107 mg/dL (60-115); Potassium 2.6 mmol/L (3.3-5.1); Sodium 139 mmol/L (135-145)
--- NOTE | 2023-09-24 20:53 | ECG_ITS ---
Test Reason : ABNORMAL LABS Blood Pressure : / mmHG Vent. Rate : 094 BPM Atrial Rate : 094 BPM P-R Int : 188 ms QRS Dur : 094 ms QT Int : 368 ms P-R-T Axes : 075 118 246 degrees QTc Int : 460 ms Normal sinus rhythm Left posterior fascicular block ST & T wave abnormality, consider inferolateral ischemia Abnormal ECG When compared with ECG of 15-MAY-2023 16:11, Left posterior fascicular block is now Present Minimal criteria for Anterior infarct are no longer Present T wave inversion now evident in Inferior leads T wave inversion now evident in Lateral leads Referred By: Any Domingo Electronically Signed By:ZOHAIB STEIN MD
[2023-09-24 21:10] LABS: Influenza A PCR NEGATIVE (Negative); Influenza B PCR NEGATIVE (Negative); Resp Syncy Virus RNA Qual PCR POSITIVE (Negative); SARS COV2 PCR INHOUSE NEGATIVE (Negative)
[2023-09-24 21:41] VITALS: BP 100/79; PULSE 90; RESP 18; TEMP 36.6; O2SAT 94
--- NOTE | 2023-09-24 21:52 | ECG_ITS ---
Test Reason : REPEAT Blood Pressure : / mmHG Vent. Rate : 080 BPM Atrial Rate : 080 BPM P-R Int : 176 ms QRS Dur : 104 ms QT Int : 420 ms P-R-T Axes : 062 090 -72 degrees QTc Int : 484 ms Normal sinus rhythm Rightward axis T wave abnormality, consider inferior ischemia Abnormal ECG When compared with ECG of 24-SEP-2023 21:03, T wave inversion no longer evident in Anterior leads Referred By: Aroldo Dowell Electronically Signed By:ZOHAIB STEIN MD
[2023-09-24] MEDS: Potassium Chloride Packet 20 MEQ PACKET 40 MEQ PO (22:04)
[2023-09-24] MEDS: Potassium Chloride/H20 10 MEQ/100 ML PIGGYBACK 66.67 MEQ IV ×2 (22:09→23:45)
[2023-09-24 22:22] LABS: Troponin-I High Sensitivity 2.8 ng/L (<3.5-17.0)
[2023-09-24 22:33] LABS: TSH reflex Free T4 > 100.00 uIU/mL (0.32-4.0)
[2023-09-24 22:55] VITALS: PULSE 80; O2SAT 100
[2023-09-24 23:08] LABS: Free T4 (Free Thyroxine) < 0.42 ng/dL (0.71-1.85)
[2023-09-24] MEDS: traZODone HCL 100 MG TABLET 300 MG PO (23:54)
--- NOTE | 2023-09-25 00:04 | PC.NURSE ---
Potassium rate was decreased to 66.67 as pt was reporting burning and discomfort in her arm. Administration delayed.
[2023-09-25] MEDS: Potassium Chloride/H20 10 MEQ/100 ML PIGGYBACK 66.67 MEQ IV ×2 (01:15→02:44)
--- NOTE | 2023-09-25 01:17 | ECG_ITS ---
Test Reason : LOW POTASSIUM Blood Pressure : / mmHG Vent. Rate : 086 BPM Atrial Rate : 086 BPM P-R Int : 232 ms QRS Dur : 096 ms QT Int : 404 ms P-R-T Axes : 061 097 254 degrees QTc Int : 483 ms Sinus rhythm with 1st degree A-V block Rightward axis Cannot rule out Inferior infarct , age undetermined ST & T wave abnormality, consider lateral ischemia Abnormal ECG When compared with ECG of 24-SEP-2023 22:03, NV interval has increased Minimal criteria for Inferior infarct are now Present Nonspecific T wave abnormality now evident in Anterior leads Referred By: Aroldo Dowell Electronically Signed By:ZOHAIB STEIN MD
[2023-09-25 02:58] LABS: Troponin-I High Sensitivity 3.1 ng/L (<3.5-17.0)
[2023-09-25 04:17] VITALS: BP 116/88; PULSE 82; RESP 16; TEMP 36.9; O2SAT 90
== END 2023-09-25 06:10 | disposition home or self-care (01) ==
PROVIDERS: Nurse Practitioner Family; Physician Assistant; Emergency Provider Internal Medicine
DX: J22 Unspecified acute lower respiratory infection (principal); B97.4 Respiratory syncytial virus as the cause of diseases classified elsewhere; H92.03 Otalgia, bilateral; R05.9 Cough, unspecified; R11.2 Nausea with vomiting, unspecified; M54.50 Low back pain, unspecified; R94.31 Abnormal electrocardiogram [ECG] [EKG]; E87.6 Hypokalemia; E03.9 Hypothyroidism, unspecified; Z20.822 Contact with and (suspected) exposure to COVID-19; Z11.52 Encounter for screening for COVID-19; Z79.899 Other long term (current) drug therapy
CPT/HCPCS: 0241U; 36415; 72100; 80048; 83735; 84439; 84443; 84484; 85025; 93005; 96365; 96366; 99285; J3480

== ENCOUNTER → 2023-09-24 20:53 | Outpatient (BNV) | payer MEDICARE, SELFPAY | PROVIDERS: Emergency Provider Internal Medicine; Visit Provider Internal Medicine Cardiovascular Disease | DX: R94.31 Abnormal electrocardiogram [ECG] [EKG] (principal) | CPT/HCPCS: 93010 ==

== ENCOUNTER → 2023-09-25 01:17 | Outpatient (BNV) | payer MEDICARE, SELFPAY | PROVIDERS: Emergency Provider Internal Medicine; Visit Provider Internal Medicine Cardiovascular Disease | DX: R94.31 Abnormal electrocardiogram [ECG] [EKG] (principal) | CPT/HCPCS: 93010 ==

== ENCOUNTER 2023-09-30 21:10 | Emergency (ER) | payer MEDICARE, SELFPAY ==
--- NOTE | ~2023-09-30 | XR_ITS ---
EXAMINATION: XR CHEST CLINICAL INFORMATION: Cough COMPARISON: None available. TECHNIQUE: Frontal view of the chest was obtained. FINDINGS: Streaky opacities in the left mid and lower lung field potentially representing atelectasis. No pneumothorax. Trachea is midline. Cardiac mediastinal silhouette is not enlarged. Aorta demonstrates tortuosity. No large pleural effusion. Levocurvature of the thoracolumbar spine. Soft tissues are unremarkable. XR/XR chest 1V IMPRESSION: Streaky opacities in the left mid and lower lung field potentially representing atelectasis.
[2023-09-30 21:25] VITALS: BP 138/65; PULSE 90; RESP 18; TEMP 36.1; O2SAT 93; BMI 28.5
--- NOTE | 2023-09-30 21:40 | ECG_ITS ---
Test Reason : DIZZINESS Blood Pressure : / mmHG Vent. Rate : 075 BPM Atrial Rate : 075 BPM P-R Int : 206 ms QRS Dur : 112 ms QT Int : 568 ms P-R-T Axes : 052 102 011 degrees QTc Int : 634 ms Sinus rhythm with frequent Premature ventricular complexes Rightward axis Nonspecific T wave abnormality Abnormal ECG When compared with ECG of 25-SEP-2023 04:07, Premature ventricular complexes are now Present Nonspecific T wave abnormality has replaced inverted T waves in Lateral leads Referred By: Generic ED Physician Electronically Signed By:MICHELLE WHALEN
--- NOTE | 2023-09-30 22:24 | ED.GENADULT ---
HPI - General Adult General Chief complaint: Upper Respiratory Symptoms Stated complaint: diff breathing, loss of appetite, weakness Time Seen by Provider: 09/30/23 22:07 Source: patient and other (Boyfriend, marked) Limitations: no limitations History of Present Illness HPI narrative: 48-year-old female with history of depression, intellectual disability, PTSD, anxiety, hypothyroidism, depression for evaluation of bilateral ear pain, cough, nausea COVID vomiting, weakness, very poor food and fluid intake over the past week. Patient was seen in the emergency department on 09/24/2023 with similar symptoms and diagnosed with RSV and hypokalemia. Patient states she still has a cough which is productive of yellow sputum. She states she feels short of breath and has chest pain when she coughs. She denied fever but did have shaking chills. She has had persistent nausea but with no vomiting. She has also had diarrhea. She has had no appetite and has not been able to eat or drink for 1 week. She states she feels very weak, lightheaded and dizzy whenever she stands up. Related Data Home Medications Medication Instructions Recorded Confirmed trazodone 150 mg tablet 300 mg PO BEDTIME Insomnia 05/05/23 09/24/23 clonazepam 0.5 mg tablet 0.5 mg PO TID PRN Anxiety 05/15/23 09/24/23 levothyroxine 112 mcg tablet 112 mcg PO DAILY 05/15/23 09/24/23 melatonin 5 mg disintegrating 10 mg PO BEDTIME PRN Insomnia 05/15/23 09/24/23 tablet Previous Rx's Medication Instructions Recorded lurasidone 20 mg tablet 20 mg PO QAM 30 days #30 tabs 05/20/23 nystatin 100,000 unit/gram topical 1 appl topical BID 30 days #15 05/20/23 powder grams potassium chloride 20 mEq oral 20 meq PO DAILY #3 ea 09/25/23 packet ondansetron 4 mg disintegrating 4 mg PO Q6-8H PRN nausea and 10/01/23 tablet vomiting #20 tabs Allergies Allergy/AdvReac Type Severity Reaction Status Date / Time methotrexate Allergy Rash Verified 09/30/23 21:25 warfarin [From Coumadin] Allergy Rash Verified 09/30/23 21:25 Review of Systems Review of Systems: Yes all other systems are reviewed and are negative [facility] Past Medical History [facility] Narrative: Social history: She is here with her boyfriend verena. Patient denies tobacco use. She occasionally drinks alcohol. She does smoke marijuana but states she has not smoked in 1 week's and she has been sick. Medical History Intellectual disability PTSD (post-traumatic stress disorder) Anxiety Hypothyroidism Depression Social History Social History Household Members: Unknown / Unable to assess Housing: Unknown / Unable to assess Do you presently have visiting nurse or other home services: No Comment: 1:1 sitter Patient Tobacco Use Status: Never used Tobacco Smoked in Last 30 Days: No Substance Use Type: Marijuana Advance Directives: No Advance Directives Information Provided: No service: No Sexual orientation: Straight/Heterosexual Physical Exam ED Vital Signs: Vital Signs - 24 hr 09/30/23 21:25 10/01/23 01:26 Temperature 97.0 F 97.7 F Pulse Rate 90 63 Respiratory Rate 18 17 Blood Pressure 138/65 104/71 Pulse Oximetry 93 Oxygen Delivery Method Room Air BMI result Body Mass Index 28.5 Vital signs were normal Exam: General: Awake, ill-appearing female patient, answers questions appropriate Head: Normocephalic, atraumatic EENT: PERRL, mouth was very dry mucous membranes, no erythema or exudates Neck: Supple, no adenopathy Lung: breath sounds symmetric, diffuse rhonchi, no wheezing or rales Chest: symmetric movement, nontender Heart: regular rate and rhythm, normal S1, S2 no murmurs or rubs Abdomen: soft, non-tender, nondistended, normal bowel sounds Back: no vertebral tenderness, no CVAT Extremities: no deformities, moves all extremities symmetrically Psych: Pleasant, cooperative Medications Administered Discontinued Medications Generic Name Dose Route Start Last Admin Trade Name Freq PRN Reason Stop Dose Admin Sodium Chloride 1,000 mls @ 999 mls/hr 09/30/23 22:30 10/01/23 00:35 Ns IV 09/30/23 23:30 Infused .Q1H1M STA Infusion Ketorolac Tromethamine 15 mg 09/30/23 22:30 09/30/23 23:03 Ketorolac Tromethamine 15 Mg/Ml Vial IVPUSH 09/30/23 22:31 15 mg ONCE STA Administration Ondansetron HCl 4 mg 09/30/23 22:30 09/30/23 23:03 Ondansetron Hcl 4 Mg/2 Ml Vial IVPUSH 09/30/23 22:31 4 mg ONCE ONE Administration Medical Decision Making Medical Decision Making [facility] Narrative: 48-year-old female with history of depression, intellectual disability, PTSD, anxiety, hypothyroidism, depression for evaluation of bilateral ear pain, cough, nausea COVID vomiting, weakness, very poor food and fluid intake over the past week. Patient was seen in the emergency department on 09/24/2023 with similar symptoms and diagnosed with RSV and hypokalemia. Vital signs were unremarkable. Patient does appear to be ill, she had very dry mucous membranes otherwise unremarkable Differential diagnosis: ?Includes but is not limited to viral syndrome, dehydration, pneumonia, anemia, electrolyte abnormalities Following evaluation was ordered: CBC, CMP, magnesium, PT T, PT/INR, troponin, chest x-ray Patient was initially treated with the following: Normal saline x1 L, Toradol 15 mg IV and Zofran 4 mg IV Course: 01:40 My interpretation patient's laboratory evaluation is as follows: CBC was normal. CMP revealed an elevated sodium of 110 and a low bicarb of 19. Anion gap was normal at 17. BUN and creatinine were normal 16 and 1.34. LFTs were normal. Urinalysis revealed 1+ blood, 3+ leukocyte esterase negative nitrates-microscopic revealed 3-5 RBCs, greater than 50 WBCs, 6-10 squamous cells, 4+ bacteria-this is a non clean catch specimen and does not require antibiotic treatment. Patient states that she did not feel better after receiving the 1 L of normal saline therefore I lactated Ringer's x1 L. Patient was given a 2nd dose of Zofran 4 mg IV. She is requesting her nighttime trazodone and she was given 200 mg orally. At the end of my shift, the patient's care was turned over to my colleague, Dr. Alda Mary. Lab Data 09/30/23 22:59 10/01/23 01:08 Labs: Lab Results 09/30/23 09/30/23 10/01/23 Range/Units 22:58 22:59 01:08 WBC 7.5 (4.8-10.8) X10*3/uL RBC 5.67 H (4.20-5.50) X10*6/uL Hgb 16.4 H (12.0-16.0) g/dl Hct 45.7 (37.0-47.0) % MCV 80.6 (80.0-98.0) fL MCH 28.9 (27.0-33.0) pg MCHC 35.9 H (31.0-35.0) g/dl RDW 16.4 H (11.0-16.0) % Plt Count 278 D (160-400) X10*3/uL MPV 9.2 L (9.4-12.3) fL Immature Gran % (Auto) 0.1 (0.0-0.4) % Neut % (Auto) 41.6 L (45-73) % Lymph % (Auto) 47.4 H (20-40) % [place] % (Auto) 8.7 (2-11) % Eos % (Auto) 1.5 (0-4) % Baso % (Auto) 0.7 (0-2) % Lymph # (Auto) 3.6 (1.2-4.9) X10*3/uL [place] # (Auto) 0.7 (0.1-1.2) X10*3/uL Eos # (Auto) 0.1 (0.0-0.4) X10*3/uL Baso # (Auto) 0.1 (0.0-0.2) X10*3/uL Abs Immat Gran (auto) 0.01 (0.00-0.03) X10*3/uL Absolute Neuts (auto) 3.1 (2.0-8.3) x10*3/uL Absolute Nucleated RBC 0.000 (0.0-0.012) X10*3/uL Nucleated RBC % (auto) 0.0 (0.0-0.2) /100WBC PT 12.2 (11.1-13.3) SEC INR 1.0 (0.9-1.1) APTT 40.0 H (26.0-36.8) SEC Sodium 138 (135-145) mmol/L Potassium 3.4 D (3.3-5.1) mmol/L Chloride 110 H (96-108) mmol/L Carbon Dioxide 14 L (22-29) mmol/L Anion Gap 17 (12-20) BUN 16 (9-16) mg/dL Creatinine 1.34 (0.5-1.4) mg/dL Estim Creat Clear Calc 48.0 Estimated GFR 42 Random Glucose 100 (60-115) mg/dL Calcium 9.8 (8.4-10.2) mg/dL Magnesium Cancelled 2.1 Total Bilirubin 0.6 (0.0-1.0) mg/dL AST 18 (5-31) U/L ALT 13 (0-31) U/L Alkaline Phosphatase 87 (39-117) U/L Troponin I High Sens 5.4 D (<3.5-17.0) ng/L Total Protein 6.9 (6.5-8.0) g/dL Albumin 4.0 (3.5-5.0) g/dL Urine Color Urine Appearance Urine pH (5.0-9.0) Ur Specific [place] (1.005-1.025) Urine Protein (Neg-Trace) mg/dL Urine Glucose (UA) (Negative) mg/dL Urine Ketones (Negative) mg/dL Urine Blood (Negative) Urine Nitrite (Negative) Ur Leukocyte Esterase (Negative) Urine RBC (0-2) /HPF Urine WBC (0-5) /HPF Ur Squamous Epith Cells (0-2) /HPF Urine Bacteria (None Seen) Hyaline Casts (0-2) /LPF 10/01/23 Range/Units 01:28 WBC (4.8-10.8) X10*3/uL RBC (4.20-5.50) X10*6/uL Hgb (12.0-16.0) g/dl Hct (37.0-47.0) % MCV (80.0-98.0) fL MCH (27.0-33.0) pg MCHC (31.0-35.0) g/dl RDW (11.0-16.0) % Plt Count (160-400) X10*3/uL MPV (9.4-12.3) fL Immature Gran % (Auto) (0.0-0.4) % Neut % (Auto) (45-73) % Lymph % (Auto) (20-40) % [place] % (Auto) (2-11) % Eos % (Auto) (0-4) % Baso % (Auto) (0-2) % Lymph # (Auto) (1.2-4.9) X10*3/uL [place] # (Auto) (0.1-1.2) X10*3/uL Eos # (Auto) (0.0-0.4) X10*3/uL Baso # (Auto) (0.0-0.2) X10*3/uL Abs Immat Gran (auto) (0.00-0.03) X10*3/uL Absolute Neuts (auto) (2.0-8.3) x10*3/uL Absolute Nucleated RBC (0.0-0.012) X10*3/uL Nucleated RBC % (auto) (0.0-0.2) /100WBC PT (11.1-13.3) SEC INR (0.9-1.1) APTT (26.0-36.8) SEC Sodium (135-145) mmol/L Potassium (3.3-5.1) mmol/L Chloride (96-108) mmol/L Carbon Dioxide (22-29) mmol/L Anion Gap (12-20) BUN (9-16) mg/dL Creatinine (0.5-1.4) mg/dL Estim Creat Clear Calc Estimated GFR Random Glucose (60-115) mg/dL Calcium (8.4-10.2) mg/dL Magnesium Total Bilirubin (0.0-1.0) mg/dL AST (5-31) U/L ALT (0-31) U/L Alkaline Phosphatase (39-117) U/L Troponin I High Sens (<3.5-17.0) ng/L Total Protein (6.5-8.0) g/dL Albumin (3.5-5.0) g/dL Urine Color Yellow Urine Appearance Turbid Urine pH 6.0 (5.0-9.0) Ur Specific [place] 1.015 (1.005-1.025) Urine Protein 30 (1+) H (Neg-Trace) mg/dL Urine Glucose (UA) Negative (Negative) mg/dL Urine Ketones 15 (Negative) mg/dL Urine Blood Small (1+) H (Negative) Urine Nitrite Negative (Negative) Ur Leukocyte Esterase Large (3+) H (Negative) Urine RBC 3-5 H (0-2) /HPF Urine WBC >50 H (0-5) /HPF Ur Squamous Epith Cells 6-10 (0-2) /HPF Urine Bacteria 4+ (None Seen) Hyaline Casts 3-5 (0-2) /LPF Independent Interpretation I performed an independent interpretation of an: Plain X-Ray Interpretation: My independent interpretation patient's one-view chest x-ray is as follows: No acute disease Radiology Impression Discussion of test interpretation with radiology: I have reviewed the radiologist's reading. Radiologist Impression: XR chest 1V IMPRESSION: Streaky opacities in the left mid and lower lung field potentially representing atelectasis. Dictated By: Santos Caballero MD Discharge Plan Discharge Clinical Impression: RSV infection, Acute dehydration Vomiting Qualifiers: Nausea presence: with nausea Patient Disposition: Still a Patient Instructions: Acute Nausea and Vomiting (ED), Viral Syndrome (ED) Additional Instructions: Your complete blood count was normal. Your comprehensive metabolic panel was normal with no electrolyte abnormalities which is reassuring. You were treated with 2 L of fluid IV and Zofran 4 mg IV x2 doses. You also received her trazodone 200 mg orally. For the next 24 hours, stay on a EMMY diet (bananas, rice, applesauce, tea and toast). Take Zofran ODT 4 mg pills, 1 pill dissolved in your mouth every 8 hours as needed for nausea and vomiting. Take ibuprofen 200 mg pills, 2 pills every 6 hours as needed for pain or fever. Take Tylenol (acetaminophen) 500 mg pills, 2 pills every 6 hours as needed for pain or fever. Follow-up with your doctor in 2 days. Please return to the emergency department if your symptoms get worse or if you develop any symptoms that are concerning to you. Prescriptions: New ondansetron 4 mg tablet,disintegrating 4 mg PO Q6-8H PRN (Reason: nausea and vomiting) Qty: 20 0RF No Action clonazepam 0.5 mg tablet 0.5 mg PO TID PRN (Reason: Anxiety) melatonin 5 mg tablet,disintegrating 10 mg PO BEDTIME PRN (Reason: Insomnia) levothyroxine 112 mcg tablet 112 mcg PO DAILY nystatin 100,000 unit/gram Powder 1 appl topical BID 30 Days Qty: 15 0RF Protocol: Apply to: Apply to: affected areas lurasidone 20 mg tablet 20 mg PO QAM 30 Days Qty: 30 0RF trazodone 150 mg tablet 300 mg PO BEDTIME potassium chloride 20 mEq packet 20 meq PO DAILY Qty: 3 0RF
[2023-09-30] MEDS: 0.9 % Sodium Chloride 1,000 ML 999 ML IV (23:03)
[2023-09-30] MEDS: Ketorolac Tromethamine 15 MG/ML VIAL IVPUSH (23:03)
[2023-09-30] MEDS: ondansetron HCL 4 MG/2 ML VIAL IVPUSH (23:03)
[2023-09-30 23:04] LABS: MANUAL DIFF FLAG NO
[2023-09-30 23:05] LABS: Basophils Absolute Auto 0.1 X10*3/uL (0.0-0.2); Basophils Percent Auto 0.7 % (0-2); Eosinophils Absolute Auto 0.1 X10*3/uL (0.0-0.4); Eosinophils Percent Auto 1.5 % (0-4); Hematocrit 45.7 % (37.0-47.0); Hemoglobin 16.4 g/dl (12.0-16.0); Imm Gran Abs Auto 0.01 X10*3/uL (0.00-0.03); Imm Gran Pct Auto 0.1 % (0.0-0.4); Lymphocytes Absolute Auto 3.6 X10*3/uL (1.2-4.9); Lymphocytes Percent Auto 47.4 % (20-40); Mean Corpuscular HGB Conc 35.9 g/dl (31.0-35.0); Mean Corpuscular Hemoglobin 28.9 pg (27.0-33.0); Mean Corpuscular Volume 80.6 fL (80.0-98.0); Mean Platelet Volume 9.2 fL (9.4-12.3); Monocytes Absolute Auto 0.7 X10*3/uL (0.1-1.2); Monocytes Percent Auto 8.7 % (2-11); Neutrophils Absolute Auto 3.1 x10*3/uL (2.0-8.3); Neutrophils Percent Auto 41.6 % (45-73); Platelet Count 278 X10*3/uL (160-400); Red Blood Count 5.67 X10*6/uL (4.20-5.50); Red Cell Distribution Width 16.4 % (11.0-16.0); White Blood Count 7.5 X10*3/uL (4.8-10.8)
[2023-09-30 23:13] LABS: Prothrombin Time 12.2 SEC (11.1-13.3)
[2023-10-01 01:26] VITALS: BP 104/71; PULSE 63; RESP 17; TEMP 36.5
[2023-10-01 01:34] LABS: Appearance Urine Turbid; Color Urine Yellow; Glucose Urine UA Negative (Negative); Leukocyte Esterase Urine Large (3+) (Negative); Nitrite Urine Negative (Negative); Specific Gravity - Urine 1.015 (1.005-1.025); UMIC TRIGGER UACC YES; Urine Blood Small (1+) (Negative); Urine Ketones 15 mg/dL (Negative); Urine Protein 30 (1+) mg/dL (Neg-Trace)
[2023-10-01 01:38] LABS: Troponin-I High Sensitivity 5.4 ng/L (<3.5-17.0)
[2023-10-01 01:40] LABS: Alanine Aminotransferase 13 U/L (0-31); Alkaline Phosphatase 87 U/L (39-117); Anion Gap 17 (12-20); Aspartate Amino Transferase 18 U/L (5-31); Bilirubin Total 0.6 mg/dL (0.0-1.0); Blood Urea Nitrogen 16 mg/dL (9-16); Calcium 9.8 mg/dL (8.4-10.2); Carbon Dioxide 14 mmol/L (22-29); Chloride 110 mmol/L (96-108); Estimated Glomerular Filt Rate 42; Glucose Random 100 mg/dL (60-115); Magnesium 2.1 mg/dL (1.6-2.6); Potassium 3.4 mmol/L (3.3-5.1); Sodium 138 mmol/L (135-145); Total Protein 6.9 g/dL (6.5-8.0)
[2023-10-01 01:48] LABS: Bacteria Urine 4+ (None Seen); UACC Culture Trigger YES; WBC Urine >50 /HPF (0-5)
[2023-10-01] MEDS: Lactated Ringers 1,000 ML 999 ML IV (02:00)
[2023-10-01] MEDS: traZODone HCL 100 MG TABLET 200 MG PO (02:00)
[2023-10-01] MEDS: ondansetron HCL 4 MG/2 ML VIAL IVPUSH (02:00)
== END 2023-10-01 03:09 | disposition home or self-care (01) ==
PROVIDERS: Emergency Provider Emergency Medicine Emergency Medical Services
DX: E86.0 Dehydration (principal); R05.9 Cough, unspecified; R06.02 Shortness of breath; B97.4 Respiratory syncytial virus as the cause of diseases classified elsewhere; N39.0 Urinary tract infection, site not specified; B96.20 Unspecified Escherichia coli [E. coli] as the cause of diseases classified elsewhere; Z16.19 Resistance to other specified beta lactam antibiotics; F41.9 Anxiety disorder, unspecified; F79 Unspecified intellectual disabilities; Z79.899 Other long term (current) drug therapy
CPT/HCPCS: 36415; 71045; 80053; 81001; 83735; 84484; 85025; 85610; 85730; 87086; 87088; 87186; 93005; 96361; 96374; 96375; 96376; 99284; J1885; J2405; J7120

== ENCOUNTER → 2023-09-30 21:40 | Outpatient (BNV) | payer MEDICARE, SELFPAY | PROVIDERS: Emergency Provider Emergency Medicine Emergency Medical Services; Visit Provider Internal Medicine | DX: R94.31 Abnormal electrocardiogram [ECG] [EKG] (principal) | CPT/HCPCS: 93010 ==